=== PATIENT | female | born 1975 ===

== ENCOUNTER 2020-05-01 07:44 | Outpatient (REF) | payer OTHER, SELFPAY ==
[2020-05-01 09:07] LABS: Alanine Aminotransferase 29 U/L (0-31); Albumin Level 4.4 g/dL (3.5-5.0); Alkaline Phosphatase 79 U/L (39-117); Anion Gap 12 (12-20); Aspartate Amino Transferase 24 U/L (5-31); Bilirubin Total 0.5 mg/dL (0.0-1.0); Blood Urea Nitrogen 7 mg/dL (9-16); Calcium 9.2 mg/dL (8.4-10.2); Carbon Dioxide 26 mmol/L (22-29); Chloride 106 mmol/L (96-108); Cholesterol 170 mg/dL; Estimated Glomerular Filt Rate > 60; Glucose Fasting 103 mg/dL (60-99); HDL Cholesterol 41 mg/dL; LDL Cholesterol Calculated 94 mg/dl; Potassium 4.1 mmol/L (3.3-5.1); Sodium 140 mmol/L (135-145); Total Protein 7.9 g/dL (6.5-8.0); Triglycerides 177 mg/dL
[2020-05-07 14:27] LABS: Vitamin D 25-OH, D2 <4 ng/mL; Vitamin D 25-OH, D3 7 ng/mL; Vitamin D 25-OH, Total 7 ng/mL (30-100)
== END 2020-05-01 07:45 | disposition home or self-care (01) ==
LOC: HO.LAB 07:44
PROVIDERS: PCP Internal Medicine; Visit Provider Internal Medicine
DX: E78.2 Mixed hyperlipidemia (principal); E55.9 Vitamin D deficiency, unspecified
CPT/HCPCS: 36415; 80053; 80061; 82306

== ENCOUNTER 2020-05-08 14:53 | Outpatient (REF) | payer OTHER, SELFPAY ==
[2020-05-09 09:47] LABS: C. trachomatis RNA TMA NOT DETECTED (NOT DETECTED); N. gonorrhoeae RNA TMA NOT DETECTED (NOT DETECTED)
[2020-05-09 12:03] LABS: BV Int Neg Control Negative (Negative); BV Int Pos Control Positive (Positive)
[2020-05-13 04:48] LABS: HPV mRNA E6/E7 rflx Not Detected (Not Detected)
== END 2020-05-08 14:54 | disposition home or self-care (01) ==
LOC: HO.LAB 14:53
PROVIDERS: PCP Internal Medicine; Visit Provider Advanced Practice Midwife
DX: Z01.419 Encounter for gynecological examination (general) (routine) without abnormal findings (principal); Z88.8 Allergy status to other drugs, medicaments and biological substances; N94.6 Dysmenorrhea, unspecified; N94.10 Unspecified dyspareunia; B37.3 Candidiasis of vulva and vagina; Z98.891 History of uterine scar from previous surgery
CPT/HCPCS: 36415; 87480; 87491; 87510; 87591; 87624; 87660; 88142; 99202

== ENCOUNTER → 2020-05-15 10:21 | Outpatient (BNVA) | payer OTHER, SELFPAY | PROVIDERS: PCP Internal Medicine; Visit Provider Advanced Practice Midwife ==

== ENCOUNTER 2021-02-03 10:46 | Outpatient (REF) | payer OTHER, MEDICAID, SELFPAY ==
--- NOTE | ~2021-02-03 | US_ITS ---
EXAMINATION: MM DIAGNOSTIC DIGITAL BREAST TOMOSYNTHESIS, BILATERAL US BREAST TARGETED, BILATERAL CLINICAL INFORMATION: Palpable abnormality right breast by patient. Palpable abnormality left breast by physician. The lifetime risk of breast cancer based on the Christina Score Model is 10.6%. COMPARISON: Mammography: None at this time. Addendum to report will be made if previous studies from [facility] can be obtained. TECHNIQUE: Digital breast tomosynthesis is performed in both the craniocaudal and mediolateral oblique views along with computer-aided detection (CAD). Synthesized 2-D images are generated from the tomosynthesis. Right breast exaggerated craniocaudal view performed. Bilateral targeted breast ultrasound. FINDINGS: The breasts are extremely dense, which lowers the sensitivity of mammography (ACR BI-RADS breast composition Category d). Right Breast. Approximately 3 cm from nipple, there is a well-circumscribed oval density measuring 2.1 x 1.4 cm in size. In the region of palpable abnormality approximately 6 cm from the nipple, medial aspect of the right breast, there is a 1.7 x 1.3 cm well-circumscribed density. Left Breast: There is a well-circumscribed oval density measuring approximately 2.3 x 1.2 cm in size about the lateral aspect of the left breast approximately 5 cm from the nipple. RIGHT BREAST ULTRASOUND: At approximately the 12 o'clock position, 2 cm from nipple, there is a 1.8 x 1.9 x 0.6 cm simple cyst. There are a few other simple-appearing cysts in this location with an adjacent one measuring approximately 7 x 4 mm in size. At the 5 o'clock position, approximately 3 cm from the nipple, where the palpable abnormality is, there is a hypoechoic circumscribed density measuring approximately 1.5 x 1.3 x 0.8 cm in size with minimal increased distal sound enhancement and no distal sound shadowing. There is a lobulation present with no internal vascularity seen. This likely represents a fibroadenoma. Ultrasound-guided core biopsy is recommended. LEFT BREAST ULTRASOUND: Within the upper outer aspect of the left breast, there are numerous cysts present, the largest of which measures approximately 2 cm in longest dimension. At approximately the 2 o'clock position, 3 cm from the nipple, there is a well-circumscribed heterogeneous structure which appears to have a soft tissue fluid level within it and may represent an acorn cyst. There is no internal vascularity, and there is increased through sound transmission present. No distal sound shadowing is seen. The lesion is wider than it is tall. A 6-month follow-up ultrasound is recommended. Results are discussed with the patient at time of visit. Shelia at the referring provider's office was given the above recommendation. US/US breast RT limited IMPRESSION: Right breast hypoechoic and slightly lobulated density in region of palpable abnormality for which ultrasound-guided core biopsy is recommended. Complex probable acorn cyst left breast for which a 6-month follow-up study is recommended. ASSESSMENT: BI-RADS 4: Suspicious. RECOMMENDATION: Ultrasound-guided core biopsy of right breast lesion approximately 5 o'clock position, 3 cm from the nipple. 6-month follow-up left breast complex cyst.
== END 2021-02-03 10:47 | disposition home or self-care (01) ==
LOC: HO.MAMMO 10:46
PROVIDERS: PCP Internal Medicine; Visit Provider Nurse Practitioner Family
DX: N63.20 Unspecified lump in the left breast, unspecified quadrant (principal); N63.10 Unspecified lump in the right breast, unspecified quadrant
CPT/HCPCS: 76642; 77062; 77066

== ENCOUNTER 2021-02-09 09:09 | Outpatient (REF) | payer OTHER, MEDICAID, SELFPAY ==
--- NOTE | ~2021-02-09 | MM_ITS ---
EXAMINATION: ULTRASOUND GUIDED CORE BIOPSY BREAST, RIGHT POST PROCEDURE DIGITAL BREAST TOMOSYNTHESIS, RIGHT CLINICAL INFORMATION: Solid mass posterior 5:00 position, likely fibroadenoma. COMPARISON: Mammography and right breast ultrasound 02/03/2021. FINDINGS: Proper informed consent is obtained from the patient after discussion of the procedure, potential risks and complications, and alternatives. Patient was given an opportunity for questions. The patient appeared to understand. The patient consented to the procedure and signed the consent form. Consent and procedure assisted by hospital provided city dispatcher. GUIDANCE: Ultrasound-guided; aseptic technique. LESION: Macrolobulated circumscribed solid mass 5:00 position measuring under 2 cm. APPROACH: Medial lateral. ANESTHESIA: 10 mL carbonated 1% lidocaine. DERMATOTOMY: Single skin newton dermatotomy performed. NEEDLE: 14-gauge Achieve core biopsy device with 13.5-gauge co-axial guide needle. CORES: 5. CLIP: HydroMARK; shape: open coil. POST PROCEDURE DIGITAL BREAST TOMOSYNTHESIS, RIGHT: The post biopsy mammogram is performed in separate room using separate digital breast tomosynthesis equipment from the biopsy procedure. CC and MLO views are obtained. Synthesized 2-D images are generated from the tomography. The breasts are heterogeneously dense, which may obscure small masses (breast composition category: c). The clip marker is in position and corresponds to the mass noted on recent imaging. No gross hematoma. The patient tolerated the procedure well. No immediate complications. Home instructions reviewed with the patient. Final pathology results are pending. MM/MM tomosynthesis diagnostic RT IMPRESSION: 1. Status post ultrasound-guided core biopsy right breast. 2. Clip placed: HydroMARK; shape: open coil. 3. Pathology pending. An addendum report will be issued.
[2021-02-09] MEDS: Lidocaine HCl 1 % 20 ML VIAL 9 ML SUBCUT (10:52)
[2021-02-09] MEDS: Sodium Bicarbonate 8.4% 50 MEQ/50 ML VIAL SUBCUT (10:54)
== END 2021-02-09 09:10 | disposition home or self-care (01) ==
LOC: HO.MAMMO 09:09
PROVIDERS: Visit Provider Surgery
DX: R92.8 Other abnormal and inconclusive findings on diagnostic imaging of breast (principal); N63.14 Unspecified lump in the right breast, lower inner quadrant
CPT/HCPCS: 19083; 77061; 77065; 88305; 99202; A4648

== ENCOUNTER → 2021-02-12 11:34 | Outpatient (BNVA) | payer OTHER, SELFPAY | PROVIDERS: PCP Internal Medicine; Referring Provider Internal Medicine; Visit Provider Surgery | DX: D24.1 Benign neoplasm of right breast (principal) | CPT/HCPCS: 99212 ==

== ENCOUNTER 2021-05-27 08:05 | Outpatient (REF) | payer OTHER, SELFPAY ==
[2021-05-27 21:42] LABS: CT PCR NOT DETECTED (Not Detect.); NG PCR NOT DETECTED (Not Detect.)
[2021-05-28 09:00] LABS: BV Int Neg Control Negative (Negative); BV Int Pos Control Positive (Positive)
== END 2021-05-27 08:06 | disposition home or self-care (01) ==
LOC: HO.LAB 08:05
PROVIDERS: PCP Internal Medicine; Visit Provider Advanced Practice Midwife
DX: Z01.419 Encounter for gynecological examination (general) (routine) without abnormal findings (principal); N93.9 Abnormal uterine and vaginal bleeding, unspecified; Z20.2 Contact with and (suspected) exposure to infections with a predominantly sexual mode of transmission
CPT/HCPCS: 87480; 87491; 87510; 87591; 87660

== ENCOUNTER 2021-05-29 09:21 | Outpatient (REF) | payer OTHER, SELFPAY ==
[2021-05-29 09:45] LABS: MANUAL DIFF FLAG NO
[2021-05-29 10:27] LABS: Basophils Percent Auto 0.5 % (0-2); Eosinophils Absolute Auto 0.1 X10*3/uL (0.0-0.4); Eosinophils Percent Auto 1.9 % (0-4); Hematocrit 32.5 % (37.0-47.0); Hemoglobin 9.8 g/dl (12.0-16.0); Imm Gran Abs Auto 0.02 X10*3/uL (0.00-0.03); Imm Gran Pct Auto 0.3 % (0.0-0.4); Lymphocytes Absolute Auto 1.6 X10*3/uL (1.2-4.9); Lymphocytes Percent Auto 25.9 % (20-40); Mean Corpuscular HGB Conc 30.2 g/dl (31.0-35.0); Mean Corpuscular Hemoglobin 22.4 pg (27.0-33.0); Mean Corpuscular Volume 74.2 fL (80.0-98.0); Mean Platelet Volume 9.8 fL (9.4-12.3); Monocytes Absolute Auto 0.3 X10*3/uL (0.1-1.2); Monocytes Percent Auto 4.8 % (2-11); Neutrophils Absolute Auto 4.1 x10*3/uL (2.0-8.3); Neutrophils Percent Auto 66.6 % (45-73); Platelet Count 389 X10*3/uL (160-400); Red Blood Count 4.38 X10*6/uL (4.20-5.50); Red Cell Distribution Width 16.1 % (11.0-16.0); White Blood Count 6.2 X10*3/uL (4.8-10.8)
[2021-05-29 11:00] LABS: Thyroid Stimulating Hormone 0.73 uIU/mL (0.32-4.0)
== END 2021-05-29 09:22 | disposition home or self-care (01) ==
LOC: HO.LAB 09:21
PROVIDERS: PCP Internal Medicine; Visit Provider Advanced Practice Midwife
DX: N93.9 Abnormal uterine and vaginal bleeding, unspecified (principal); N92.1 Excessive and frequent menstruation with irregular cycle
CPT/HCPCS: 36415; 84443; 85025

== ENCOUNTER 2021-06-17 15:51 | Outpatient (REF) | payer OTHER, SELFPAY ==
--- NOTE | ~2021-06-17 | US_ITS ---
EXAMINATION: US PELVIS CLINICAL INFORMATION: Abnormal uterine and vaginal bleeding COMPARISON: None TECHNIQUE: Ultrasound of the pelvis is performed using both transabdominal and transvaginal transducers along with Doppler. Transvaginal imaging is performed due to inadequate visualization transabdominally. FINDINGS: Uterus: The uterus is anteverted and measures 12.8 x 5.8 x 6.9 cm. There are nabothian cysts within the cervix. The double wall endometrial thickness is 22 mm. The uterus is smooth in contour and has normal myometrial echogenicity. No visible fibroid. Adnexa: Both ovaries are visualized. There is normal color flow to the adnexa. There is no ovarian torsion. There is no pelvic ascites or fluid collection. Right ovary measures 2.8 x 1.8 x 1.9 cm. There is a 1.8 cm dominant follicle in the right ovary. Left ovary measures 1.9 x 2.2 x 1.8 cm. There is an anechoic tubular structure in left adnexa that measures 3.3 x 1.2 x 3.3 cm, that may represent a hydrosalpinx. US/US pelvic and transvaginal IMPRESSION: Anechoic tubular structure in the left adnexa that may represent a hydrosalpinx. 1.8 cm dominant follicle in the right ovary. Otherwise normal pelvic ultrasound.
== END 2021-06-17 15:52 | disposition home or self-care (01) ==
LOC: HO.US 15:51
PROVIDERS: Visit Provider Advanced Practice Midwife
DX: N93.9 Abnormal uterine and vaginal bleeding, unspecified (principal)
CPT/HCPCS: 76830; 76856

== ENCOUNTER 2021-06-24 07:57 | Outpatient (REF) | payer OTHER, SELFPAY ==
[2021-06-25 09:22] LABS: BV Int Neg Control Negative (Negative); BV Int Pos Control Positive (Positive)
== END 2021-06-24 07:58 | disposition home or self-care (01) ==
LOC: HO.LAB 07:57
PROVIDERS: PCP Internal Medicine; Visit Provider Advanced Practice Midwife
DX: R10.2 Pelvic and perineal pain (principal); N93.9 Abnormal uterine and vaginal bleeding, unspecified; R30.0 Dysuria; Z32.02 Encounter for pregnancy test, result negative; Z71.2 Person consulting for explanation of examination or test findings
CPT/HCPCS: 58100; 81003; 81025; 87480; 87510; 87660; 88305

== ENCOUNTER → 2021-07-08 08:01 | Outpatient (BNVA) | payer OTHER, SELFPAY | PROVIDERS: PCP Internal Medicine; Visit Provider Advanced Practice Midwife | DX: Z71.2 Person consulting for explanation of examination or test findings (principal); Z30.09 Encounter for other general counseling and advice on contraception; N94.6 Dysmenorrhea, unspecified; N76.0 Acute vaginitis; B96.89 Other specified bacterial agents as the cause of diseases classified elsewhere | CPT/HCPCS: 99212 ==

== ENCOUNTER 2021-08-12 15:28 | Outpatient (REF) | payer OTHER, SELFPAY ==
--- NOTE | ~2021-08-12 | US_ITS ---
EXAMINATION: US DIAGNOSTIC ULTRASOUND BREAST, LEFT CLINICAL INFORMATION: Six-month follow-up left breast acorn cyst. COMPARISON: 02/09/2021, 02/03/2021, and studies dating back to 12/27/2017. TECHNIQUE: Ultrasound of the breast is performed with real-time hong scale imaging and color Doppler. FINDINGS: About the upper outer quadrant of the left breast there are innumerable cysts present the majority of which are simple with some mildly complex cysts being seen. No definite solid lesion with internal vascularity is appreciated. 6 month bilateral mammography is suggested as well as targeted left breast ultrasound to ensure stability. Results are discussed with the patient at time of visit. US/US breast LT limited IMPRESSION: Numerous left breast cysts some of which are complex with no definite suspicious lesion being identified. Recommend 6 month follow-up mammography and ultrasound. ASSESSMENT: BI-RADS 3: Probably Benign RECOMMENDATION: Diagnostic mammography in 6 months. This patient's information was entered into a reminder system with a target due date for their next mammogram.
== END 2021-08-12 15:29 | disposition home or self-care (01) ==
LOC: HO.MAMMO 15:28
PROVIDERS: Visit Provider Internal Medicine
DX: N63.21 Unspecified lump in the left breast, upper outer quadrant (principal)
CPT/HCPCS: 76642

== ENCOUNTER 2021-12-04 07:53 | Outpatient (REF) | payer OTHER, SELFPAY ==
[2021-12-04 08:06] LABS: MANUAL DIFF FLAG NO
[2021-12-04 09:23] LABS: Basophils Percent Auto 0.6 % (0-2); Eosinophils Absolute Auto 0.2 X10*3/uL (0.0-0.4); Eosinophils Percent Auto 2.7 % (0-4); Hematocrit 40.9 % (37.0-47.0); Hemoglobin 13.2 g/dl (12.0-16.0); Imm Gran Abs Auto 0.04 X10*3/uL (0.00-0.03); Imm Gran Pct Auto 0.6 % (0.0-0.4); Lymphocytes Absolute Auto 2.3 X10*3/uL (1.2-4.9); Lymphocytes Percent Auto 34.4 % (20-40); Mean Corpuscular HGB Conc 32.3 g/dl (31.0-35.0); Mean Corpuscular Hemoglobin 27.4 pg (27.0-33.0); Mean Platelet Volume 9.7 fL (9.4-12.3); Monocytes Absolute Auto 0.4 X10*3/uL (0.1-1.2); Monocytes Percent Auto 5.8 % (2-11); Neutrophils Absolute Auto 3.7 x10*3/uL (2.0-8.3); Neutrophils Percent Auto 55.9 % (45-73); Platelet Count 313 X10*3/uL (160-400); Red Blood Count 4.81 X10*6/uL (4.20-5.50); Red Cell Distribution Width 13.4 % (11.0-16.0); White Blood Count 6.7 X10*3/uL (4.8-10.8)
[2021-12-04 10:08] LABS: Alanine Aminotransferase 28 U/L (0-31); Albumin Level 4.5 g/dL (3.5-5.0); Alkaline Phosphatase 62 U/L (39-117); Anion Gap 14 (12-20); Aspartate Amino Transferase 22 U/L (5-31); Bilirubin Total 0.3 mg/dL (0.0-1.0); Blood Urea Nitrogen 8 mg/dL (9-16); Calcium 9.8 mg/dL (8.4-10.2); Carbon Dioxide 23 mmol/L (22-29); Chloride 105 mmol/L (96-108); Cholesterol 211 mg/dL; Estimated Glomerular Filt Rate > 60; Glucose Fasting 99 mg/dL (60-99); HDL Cholesterol 43 mg/dL; Iron 39 mcg/dL (30-160); LDL Cholesterol Calculated 112 mg/dl; Percent Iron Saturation 9 % (15-50); Potassium 4.3 mmol/L (3.3-5.1); Sodium 138 mmol/L (135-145); Total Iron Binding Capacity 412 mcg/dL (228-428); Triglycerides 282 mg/dL; Unsaturated Iron Binding 373 ug/dL
[2021-12-04 10:47] LABS: Vitamin D 25-OH Total 11.7 ng/mL (>30)
== END 2021-12-04 07:54 | disposition home or self-care (01) ==
LOC: HO.LAB 07:53
PROVIDERS: PCP Internal Medicine; Visit Provider Internal Medicine
DX: Z00.00 Encounter for general adult medical examination without abnormal findings (principal); E55.9 Vitamin D deficiency, unspecified; E78.5 Hyperlipidemia, unspecified; D64.9 Anemia, unspecified
CPT/HCPCS: 36415; 80053; 80061; 82306; 83540; 85025

== ENCOUNTER 2022-02-11 14:23 | Outpatient (REF) | payer OTHER, SELFPAY ==
--- NOTE | ~2022-02-11 | MM_ITS ---
EXAMINATION: MM DIAGNOSTIC DIGITAL BREAST TOMOSYNTHESIS, BILATERAL CLINICAL INFORMATION: Left breast numerous cysts. 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 COMPARISON: Mammography: 12/27/2017 and studies dating up to ultrasound study of 08/12/2021. TECHNIQUE: Digital breast tomosynthesis is performed in both the craniocaudal and mediolateral oblique views along with computer-aided detection (CAD). Synthesized 2D images are generated from the tomosynthesis. FINDINGS: The breasts are extremely dense, which lowers the sensitivity of mammography (ACR BI-RADS breast composition Category d). There is a stable parenchymal pattern with numerous circumscribed densities bilaterally as well as the fibroadenoma with marking clip within it. Following review of the ultrasound study of 08/12/2021. Today's ultrasound was canceled with the numerous left breast cyst seen previously to appear benign. Results are provided to the patient at time of visit by the technologist. MM/MM tomosynthesis diagnostic BI IMPRESSION: There are no significant changes from prior study. ASSESSMENT: BI-RADS 2: Benign RECOMMENDATION: Routine annual mammography screening. This patient's information was entered into a reminder system with a target due date for their next mammogram.
== END 2022-02-11 14:24 | disposition home or self-care (01) ==
LOC: HO.MAMMO 14:23
PROVIDERS: PCP Internal Medicine; Visit Provider Internal Medicine
DX: N60.02 Solitary cyst of left breast (principal); N64.89 Other specified disorders of breast
CPT/HCPCS: 77062; 77066

== ENCOUNTER 2022-08-04 14:25 | Outpatient (REF) | payer OTHER, SELFPAY | END 2022-08-04 14:26 | disposition home or self-care (01) | LOC: HO.LNP 14:25 | PROVIDERS: PCP Internal Medicine; Visit Provider Advanced Practice Midwife | DX: Z13.89 Encounter for screening for other disorder (principal) ==

== ENCOUNTER 2022-08-04 15:00 | Outpatient (REF) | payer OTHER, SELFPAY ==
[2022-08-04 15:44] LABS: Hematocrit 32.2 % (37.0-47.0); Hemoglobin 10.2 g/dl (12.0-16.0); Mean Corpuscular HGB Conc 31.7 g/dl (31.0-35.0); Mean Corpuscular Hemoglobin 23.8 pg (27.0-33.0); Mean Corpuscular Volume 75.2 fL (80.0-98.0); Mean Platelet Volume 9.1 fL (9.4-12.3); Platelet Count 333 X10*3/uL (160-400); Red Blood Count 4.28 X10*6/uL (4.20-5.50); Red Cell Distribution Width 14.6 % (11.0-16.0); White Blood Count 7.9 X10*3/uL (4.8-10.8)
[2022-08-04 16:28] LABS: Thyroid Stimulating Hormone 0.78 uIU/mL (0.32-4.0)
[2022-08-04 18:40] LABS: CT PCR NOT DETECTED (Not Detect.); NG PCR NOT DETECTED (Not Detect.)
[2022-08-05 01:51] LABS: Syphilis Screen Nonreactive (Nonreactive)
[2022-08-05 02:57] LABS: HIV AB/AG Nonreactive (Nonreactive); HIV Num 1 0.07 S/CO (0.00-0.99); Hepatitis B Core Antibody Nonreactive (Nonreactive); ~HepC Num1 0.15 S/CO (0.00-0.79); ~Hepatitis C Antibody Nonreactive (Nonreactive)
[2022-08-05 09:21] LABS: BV Int Neg Control Negative (Negative); BV Int Pos Control Positive (Positive)
== END 2022-08-04 15:01 | disposition home or self-care (01) ==
LOC: HO.LAB 15:00
PROVIDERS: PCP Internal Medicine; Visit Provider Advanced Practice Midwife
DX: Z11.4 Encounter for screening for human immunodeficiency virus [HIV] (principal); Z20.2 Contact with and (suspected) exposure to infections with a predominantly sexual mode of transmission; N92.1 Excessive and frequent menstruation with irregular cycle; N94.6 Dysmenorrhea, unspecified
CPT/HCPCS: 0353U; 84443; 85027; 86704; 86780; 86803; 87389; 87480; 87510; 87660

== ENCOUNTER 2022-10-10 11:35 | Outpatient (REF) | payer OTHER, SELFPAY ==
--- NOTE | ~2022-10-10 | XR_ITS ---
EXAMINATION: XR FEMUR, LEFT CLINICAL INFORMATION: Pain. COMPARISON: None available. TECHNIQUE: AP and lateral views of the left femur were obtained. FINDINGS: The bones and soft tissues are normal. No fracture. No osseous lesions. XR/XR femur LT 2V IMPRESSION: Normal left femur.
--- NOTE | ~2022-10-10 | XR_ITS ---
EXAMINATION: XR KNEE, RIGHT CLINICAL INFORMATION: Pain. COMPARISON: None available. TECHNIQUE: AP and lateral views of the right knee. FINDINGS: No fracture or joint effusion. Alignment is anatomic. Joint spaces are maintained. No abnormal soft tissue calcification. XR/XR knee RT 2V IMPRESSION: Normal right knee.
--- NOTE | ~2022-10-10 | XR_ITS ---
EXAMINATION: XR FEMUR, RIGHT CLINICAL INFORMATION: Pain. COMPARISON: None available. TECHNIQUE: AP and lateral views of the right femur were obtained. FINDINGS: The bones and soft tissues are normal. No fracture. No osseous lesions. XR/XR femur RT 2V IMPRESSION: Normal right femur.
--- NOTE | ~2022-10-10 | XR_ITS ---
EXAMINATION: XR FOREARM, RIGHT CLINICAL INFORMATION: Pain. COMPARISON: None available. TECHNIQUE: AP and lateral views of the right forearm were obtained. FINDINGS: The bones and soft tissues are normal. No fracture. Imaged portions of the elbow and wrist are unremarkable. XR/XR forearm RT 2V IMPRESSION: Normal right forearm.
--- NOTE | ~2022-10-10 | XR_ITS ---
EXAMINATION: XR HUMERUS, LEFT CLINICAL INFORMATION: Pain. COMPARISON: None available. TECHNIQUE: AP and lateral views of the left humerus. FINDINGS: The bones and soft tissues are normal. No fracture. Imaged portions of the shoulder and elbow are unremarkable. XR/XR humerus LT IMPRESSION: Normal left humerus.
--- NOTE | ~2022-10-10 | XR_ITS ---
EXAMINATION: XR HUMERUS, RIGHT CLINICAL INFORMATION: Pain. COMPARISON: None available. TECHNIQUE: AP and lateral views of the right humerus. FINDINGS: The bones and soft tissues are normal. No fracture. Imaged portions of the shoulder and elbow are unremarkable. XR/XR humerus RT IMPRESSION: Normal right humerus.
--- NOTE | ~2022-10-10 | XR_ITS ---
EXAMINATION: XR KNEE, LEFT CLINICAL INFORMATION: Pain. COMPARISON: None available. TECHNIQUE: AP and lateral views of the left knee. FINDINGS: No fracture or joint effusion. Alignment is anatomic. Joint spaces are maintained. No abnormal soft tissue calcification. XR/XR knee LT 2V IMPRESSION: Normal left knee.
--- NOTE | ~2022-10-10 | XR_ITS ---
EXAMINATION: XR FOREARM, LEFT CLINICAL INFORMATION: Pain. COMPARISON: None available. TECHNIQUE: AP and lateral views of the left forearm were obtained. FINDINGS: The bones and soft tissues are normal. No fracture. Imaged portions of the elbow and wrist are unremarkable. XR/XR forearm LT 2V IMPRESSION: Normal left forearm.
== END 2022-10-10 11:36 | disposition home or self-care (01) ==
LOC: HO.XRAY 11:35
PROVIDERS: PCP Internal Medicine; Visit Provider Internal Medicine
DX: M89.8X2 Other specified disorders of bone, upper arm (principal); M79.632 Pain in left forearm; M79.631 Pain in right forearm; M89.8X5 Other specified disorders of bone, thigh; M25.562 Pain in left knee; M25.561 Pain in right knee
CPT/HCPCS: 73060; 73090; 73552; 73560

== ENCOUNTER 2022-11-18 08:12 | Outpatient (REF) | payer OTHER, SELFPAY ==
[2022-11-18 08:36] LABS: MANUAL DIFF FLAG NO
[2022-11-18 09:27] LABS: Basophils Percent Auto 0.4 % (0-2); Eosinophils Absolute Auto 0.1 X10*3/uL (0.0-0.4); Eosinophils Percent Auto 1.8 % (0-4); Hematocrit 36.4 % (37.0-47.0); Hemoglobin 11.4 g/dl (12.0-16.0); Imm Gran Abs Auto 0.04 X10*3/uL (0.00-0.03); Imm Gran Pct Auto 0.5 % (0.0-0.4); Lymphocytes Absolute Auto 2.2 X10*3/uL (1.2-4.9); Lymphocytes Percent Auto 27.6 % (20-40); Mean Corpuscular HGB Conc 31.3 g/dl (31.0-35.0); Mean Corpuscular Hemoglobin 23.4 pg (27.0-33.0); Mean Corpuscular Volume 74.7 fL (80.0-98.0); Mean Platelet Volume 9.5 fL (9.4-12.3); Monocytes Absolute Auto 0.6 X10*3/uL (0.1-1.2); Monocytes Percent Auto 7.8 % (2-11); Neutrophils Percent Auto 61.9 % (45-73); Platelet Count 350 X10*3/uL (160-400); Red Blood Count 4.87 X10*6/uL (4.20-5.50); Red Cell Distribution Width 15.8 % (11.0-16.0)
[2022-11-18 10:12] LABS: Erythrocyte Sedimentation Rate 17 MM/HR (0-20)
[2022-11-18 10:28] LABS: Alanine Aminotransferase 28 U/L (0-31); Albumin Level 4.5 g/dL (3.5-5.0); Alkaline Phosphatase 69 U/L (39-117); Anion Gap 13 (12-20); Aspartate Amino Transferase 23 U/L (5-31); Bilirubin Total 0.4 mg/dL (0.0-1.0); Blood Urea Nitrogen 9 mg/dL (9-16); Calcium 9.8 mg/dL (8.4-10.2); Carbon Dioxide 24 mmol/L (22-29); Chloride 106 mmol/L (96-108); Cholesterol 222 mg/dL (<200); Estimated Glomerular Filt Rate > 60; Glucose Fasting 96 mg/dL (60-99); HDL Cholesterol 50 mg/dL (>40); Iron 31 mcg/dL (30-160); LDL Cholesterol Calculated 119 mg/dL (<100); Percent Iron Saturation 8 % (15-50); Potassium 4.1 mmol/L (3.3-5.1); Sodium 139 mmol/L (135-145); Total Iron Binding Capacity 410 mcg/dL (228-428); Total Protein 8.3 g/dL (6.5-8.0); Triglycerides 267 mg/dL (<150); Unsaturated Iron Binding 379 ug/dL
[2022-11-18 10:38] LABS: Rheumatoid Factor < 13.0 IU/mL (<15.0)
[2022-11-21 07:53] LABS: Cyclic Citrullinated Peptide <16 UNITS
[2022-11-23 12:28] LABS: Anti Nuclear Antibody Screen POSITIVE (NEGATIVE)
== END 2022-11-18 08:13 | disposition home or self-care (01) ==
LOC: HO.LAB 08:12
PROVIDERS: PCP Internal Medicine; Visit Provider Internal Medicine
DX: E78.5 Hyperlipidemia, unspecified (principal); E55.9 Vitamin D deficiency, unspecified; E66.9 Obesity, unspecified; M54.6 Pain in thoracic spine; D64.9 Anemia, unspecified; Z68.31 Body mass index [BMI] 31.0-31.9, adult
CPT/HCPCS: 36415; 80053; 80061; 82306; 83540; 85025; 85652; 86038; 86039; 86200; 86431

== ENCOUNTER 2022-11-28 17:08 | Outpatient (AMB) | payer OTHER, SELFPAY ==
[2022-11-28 17:14] VITALS: BP 118/70; BMI 33.1
--- NOTE | 2022-11-28 17:14 | MHC.PC.OV ---
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 Required: No Accompanied by: Daughter Allergies simvastatin Adverse Reaction (Mild, Verified 11/28/22 17:27) hives/ rash Medication List - Last Reconciled 11/28/22 by Meche Avendaño MD ferrous sulfate 325 mg PO DAILY 90 days Tobacco use date assessed: 03/23/22 Dental Screening Dental Screen Date: 11/28/22 Did you have a dental visit in the last 12 months?: Yes Did you have a dental problem in the last 6 months where you did not have access to dental care?: No Was dental information given to patient?: Patient has dentist HPI HPI Comments History of Present Illness Details This is a 47-year-old female that comes for her physical exam accompanied by daughter. Last Pap smear was 2020. Last mammogram was February 2022. Has never had a colonoscopy and has no family history of colon cancer. Cologuard will be order. Has diffuse joint pain and has a positive MECHE and will be referred to rheumatology. Elevated cholesterol and triglyceride but does not require any statin as per Jermyn risk score. [facility] Medical History Abnormal uterine bleeding (AUB) Blurry vision Cervical cancer screening Encounter for well woman exam Heavy menstrual bleeding Hypovitaminosis D Mixed hyperlipidemia Moderate cramps with menses Vaginal pruritus Surgical History H/O tubal ligation History of tonsillectomy Previous section Family History Father Diabetes Mother No problems noted. Social History Housing: House Alcohol intake: never Patient Tobacco Use Status: Never used Tobacco e-Cigarette/Vaping Use: Never Used Second Hand Smoke Exposure: No service: No Current occupational status: employed Current occupational exposures/hazards: No Gender identity: Female Cognitive needs: No Hearing needs: No Vision needs: No Female Reproductive History Menstrual Age of Menarche: 15 Questionnaire Thrive Questionnaire Date Thrive assessed: 03/23/22 DAVID-7 AMB Questionnaire DAVID-7 Date DAVID - 7 assessed: 03/23/22 Source: Developed by Drs. Gray Willoughby, Olimpia Jarrett, Pancho Matute and colleagues, with an educational aniket from [employer]. Review of Systems Const All systems reviewed & are unremarkable except as noted in HPI and below Eyes Reports no additional complaints, Denies change in vision and Denies other visual disturbances Card Denies chest pain at rest, Denies chest pain with activity, Denies edema, Denies irregular heart rhythm, Denies claudication, Denies dyspnea, Denies dyspnea on exertion, Denies orthopnea, Denies paroxysmal nocturnal dyspnea and Denies slow heart rate Resp Denies cough, Denies dyspnea and Denies dyspnea on exertion GI Denies abdominal pain, Denies change in bowel habits, Denies excessive flatus, Denies nausea and Denies vomiting Denies urinary incontinence, Denies urinary hesitancy and Denies urinary urgency Musc Denies abnormal gait, Denies atrophy, Denies deformity and Denies limited range of motion Skin/Breast Denies bleeding lesions, Denies changing lesions and Denies rash Neuro Denies abnormal gait and Denies lack of coordination Physical exam (Primary Care) Vital Signs: Last Vital Signs BP 118/70 11/28/22 17:14 BMI result Body Mass Index 33.1 Tobacco/Smoking Status: Tobacco use Status Tobacco use date assessed 03/23/22 11/28/22 17:17 Patient Tobacco Use Status Never used Tobacco 11/28/22 17:17 e-Cigarette/Vaping Use Never Used 11/28/22 17:17 Thrive Assessment: Date of Thrive Assessment Date Thrive assessed 03/23/22 11/28/22 17:17 Const Orientation/consciousness: patient oriented x3 HENMT Head: Yes normal to inspection, Yes normocephalic and Yes atraumatic Ears: external ears normal Eyes General: appearance normal, both eyes and all related structures Eyelids: Yes eyelids normal Conjunctivae: conjunctivae normal Neck Neck: Yes normal visual inspection and Yes supple Resp Effort & Inspection: normal respiratory effort Auscultation: clear to auscultation bilaterally Cardio Jugular venous distension: no JVD Rate: regular rate Rhythm: regular rhythm Heart sounds: S1 normal heart sound present and S2 normal heart sound present GI Inspection: Yes normal to inspection Palpation (GI): Soft to palpation and nontender Auscultation: normal bowel sounds Skin General skin exam: no rashes or lesions noted Neuro General: patient oriented x3 and no focal motor deficits Extrem General: Yes full ROM Psych Appearance: grossly normal Assessment and Plan Assessment & Plan (1) Physical exam: Code(s): Z00.00 - Encounter for general adult medical examination without abnormal findings Plan: Repeat in a year Orders: Referrals Rheumatology Referral R76.8 - Other specified abnormal immunological findings in serum Cologuard Test Z12.11 - Encounter for screening for malignant neoplasm of colon, Z12.12 - Encounter for screening for malignant neoplasm of rectum Coding Level of Care Code Est Pt Prev Care 40-64y(00438) Diagnoses Physical exam Z00.00 Time Spent (min) 32
== END 2022-11-28 17:35 | disposition home or self-care (01) ==
LOC: HO.HMGH 17:08
PROVIDERS: PCP Internal Medicine; Visit Provider Internal Medicine
DX: Z00.00 Encounter for general adult medical examination without abnormal findings (principal)
CPT/HCPCS: 99396

== ENCOUNTER 2023-03-02 10:41 | Outpatient (AMB) | payer OTHER, SELFPAY ==
--- NOTE | 2023-03-02 10:47 | MHC.OFFVIS ---
Intake Vital Signs 03/02/23 10:48 Height 5 ft 5 in Weight 197 lb 5.019 oz BMI 32.8 BP 130/62 Blood Pressure Location Rt brachial Position Sitting Pulse 82 Pulse Source Pulse Oximeter Temp 97.6 F Temp Source Skin Pulse Oximetry (%) 98 Oxygen Delivery Method Room Air Intake Visit Reasons: Abnormal lab Intake Note: New pt presents today for consult. 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 c/o low back pain, right elbow pain, aliyah knee pain. All worsening since approx 6 months. District Home Economics Agent Required: Yes District Home Economics Agent Language: Dairy Powder Mixer Operator Name: Vandana [id number] Information Interpreted: clinical only Accompanied by: Daughter Allergies simvastatin Adverse Reaction (Mild, Verified 03/02/23 10:53) hives/ rash Medication List - Last Reconciled 03/02/23 by Andrés Gloria MD ferrous sulfate 325 mg PO DAILY 90 days HPI HPI Comments History of Present Illness Details This is a 47-year-old female who presents for evaluation of polyarthralgia and positive NALLELY. Patient states that for the last 6 months she has been having lower back pain. Right elbow pain and bilateral knee pain especially with going up and down the stairs. She does take an [id number] Aleve mixed with Tylenol once or twice a week which provides some relief for her back pain. 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 She denies any rashes. Denies any fevers or weight loss. Denies any history of DVT/PE. She had 2 pregnancies and 2 children. No abortions or miscarriages. Denies any swollen joints. [facility] Medical History Moderate cramps with menses Heavy menstrual bleeding Encounter for well woman exam Abnormal uterine bleeding (AUB) Hypovitaminosis D Blurry vision Cervical cancer screening Vaginal pruritus Mixed hyperlipidemia Surgical History H/O tubal ligation History of tonsillectomy Previous section Family History Father Diabetes Mother Arthritis Maternal Grandmother Arthritis Social History Housing: House Alcohol intake: never Patient Tobacco Use Status: Never used Tobacco e-Cigarette/Vaping Use: Never Used Second Hand Smoke Exposure: No service: No Current occupational status: employed 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 Current occupational exposures/hazards: No Gender identity: Female Cognitive needs: No Hearing needs: No Vision needs: No Female Reproductive History Menstrual Age of Menarche: 15 Total pregnancies: 2 Review of Systems Const Denies fever(s) and Reports weight gain Musc Reports back pain and Reports arthralgias Physical Exam Vital Signs: Last Vital Signs Temp 97.6 F 03/02/23 10:48 Pulse 82 03/02/23 10:48 BP 130/62 03/02/23 10:48 Pulse Ox 98 03/02/23 10:48 Oxygen Delivery Method Room Air 03/02/23 10:48 BMI result Body Mass Index 32.8 Const General: cooperative, healthy appearing and comfortable Nutritional Appearance: obese Orientation/consciousness: patient oriented x3 Limitations: no limitations HEENT Head: Yes normocephalic and Yes atraumatic Mouth: moist mucous membranes Resp Effort & Inspection: normal respiratory effort and able to speak in complete sentences Auscultation: clear to auscultation bilaterally Cardio Rate: regular rate Rhythm: regular rhythm GI Inspection: No distended Palpation (GI): Soft to palpation and nontender Skin General skin exam: no rashes or lesions noted Neuro General: patient oriented x3 Extrem Other: No active synovitis Positive resisted wrist extension test and equivocal resisted wrist flexion test on the right Range of motion of hand, wrists, shoulders. Normal nailfold capillaroscopy Bilateral knee crepitus Assessment & Plan Assessment & Plan (1) Right tennis elbow: Code(s): M77.11 - Lateral epicondylitis, right elbow Plan: Referred to OT (2) Positive NALLELY (antinuclear antibody): Code(s): R76.8 - Other specified abnormal immunological findings in serum Plan: This is a 47-year-old female who presents for evaluation of a positive NALLELY. I do not see any signs of an autoimmune rheumatic disease. There are no rashes, fevers, swollen joints, history of DVT/PE, recurrent miscarriages. No known family history of an autoimmune rheumatic disease. Her positive NALLELY is of unclear significance Her pains are likely degenerative and mechanical in nature Orders: Orders OT Evaluation and Treatment Today M77.01 - Medial epicondylitis, right elbow, M77.11 - Lateral epicondylitis, right elbow Coding Level of Care Code New Pt Level 4 (00703) Diagnoses Right tennis elbow M77.11 Positive NALLELY (antinuclear antibody) R76.8
[2023-03-02 10:48] VITALS: BP 130/62; PULSE 82; TEMP 36.4; O2SAT 98; BMI 32.8
== END 2023-03-02 11:25 | disposition home or self-care (01) ==
PROVIDERS: PCP Internal Medicine; Visit Provider Student in an Organized Health Care Education/Training Program
DX: M77.11 Lateral epicondylitis, right elbow (principal); R76.8 Other specified abnormal immunological findings in serum
CPT/HCPCS: 99204

== ENCOUNTER → 2023-03-02 10:41 | Outpatient (BNVA) | payer OTHER, SELFPAY | PROVIDERS: PCP Internal Medicine; Visit Provider Student in an Organized Health Care Education/Training Program | DX: M77.11 Lateral epicondylitis, right elbow (principal); R76.8 Other specified abnormal immunological findings in serum | CPT/HCPCS: 99202 ==

== ENCOUNTER 2023-03-13 14:34 | Outpatient (REF) | payer OTHER, SELFPAY ==
--- NOTE | ~2023-03-13 | MM_ITS ---
EXAMINATION: MM SCREENING DIGITAL BREAST TOMOSYNTHESIS, BILATERAL CLINICAL INFORMATION: Screening. Asymptomatic. COMPARISON: Mammography: This study is compared with prior exams dating back to 2018. TECHNIQUE: Digital breast tomosynthesis is performed in both the craniocaudal and mediolateral oblique views along with computer-aided detection (CAD). Synthesized 2D images are generated from the tomosynthesis. FINDINGS: The breasts are heterogeneously dense, which may obscure small masses (ACR BI-RADS breast composition Category c). At the lower inner quadrant of the deep third of the right breast, there is an oval mass containing a single coarse calcification. It most likely represents an involuting fibroadenoma. There are bilateral, well-circumscribed unchanged, benign masses. There are no significant masses, abnormal calcifications, or other abnormalities. MM/MM tomosynthesis screening BI IMPRESSION: No mammographic evidence of malignancy. ASSESSMENT: BI-RADS BI-RADS 2 - Benign Findings RECOMMENDATION: Routine annual mammography screening. 1 year F/U This examination should not preclude the clinical evaluation of a suspicious palpable abnormality. This patient's information was entered into a reminder system with a target due date for their next mammogram.
== END 2023-03-13 14:35 | disposition home or self-care (01) ==
LOC: HO.MAMMO 14:34
PROVIDERS: PCP Internal Medicine; Visit Provider Internal Medicine
DX: Z12.31 Encounter for screening mammogram for malignant neoplasm of breast (principal)
CPT/HCPCS: 77063; 77067

== ENCOUNTER → 2023-03-13 14:45 | Outpatient (BNV) | payer OTHER, SELFPAY | PROVIDERS: PCP Internal Medicine; Visit Provider Radiology Diagnostic Radiology | DX: Z12.31 Encounter for screening mammogram for malignant neoplasm of breast (principal) | CPT/HCPCS: 77063; 77067 ==

== ENCOUNTER 2023-03-29 14:54 | Outpatient (RCR) | payer OTHER, SELFPAY ==
--- NOTE | 2023-03-29 16:25 | MHC.OT.EP ---
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 Pt also with report of back pain and bilateral knee pain. Today pt presents with S+S consistent with a diagnosis of right lateral epicondylitis primarily aggravated with use of her elliptical machine, and lifting groceries and trash bags. Pt will benefit from OT to improve right elbow pain, and functional use of her right dominant hand with moderate to heavy activity at home and work. 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 Thank you once again for your referral.
== END 2023-04-28 13:39 | disposition home or self-care (01) ==
LOC: HO.OT 14:54
PROVIDERS: PCP Internal Medicine; Visit Provider Student in an Organized Health Care Education/Training Program
DX: M77.11 Lateral epicondylitis, right elbow (principal); M77.01 Medial epicondylitis, right elbow
CPT/HCPCS: 97033; 97166

== ENCOUNTER 2023-06-12 15:09 | Outpatient (AMB) | payer OTHER, SELFPAY ==
[2023-06-12 15:23] VITALS: BP 130/72; BMI 33.4
--- NOTE | 2023-06-12 15:23 | MHC.PC.OV ---
Vital Signs 06/12/23 15:23 Height 5 ft 5 in Weight 201 lb BMI 33.4 BP 130/72 Blood Pressure Location Lt brachial Position Sitting Intake Visit Reasons: right buttocks pain radiating down leg for 3 weeks Hospitality Manager Required: No Accompanied by: Self / Same As Patient Allergies simvastatin Adverse Reaction (Mild, Verified 06/12/23 15:31) hives/ rash Medication List - Last Reconciled 06/12/23 by Meche Avendaño MD No Known Home Meds Tobacco use date assessed: 06/12/23 Dental Screening Dental Screen Date: 06/12/23 Did you have a dental visit in the last 12 months?: Yes Did you have a dental problem in the last 6 months where you did not have access to dental care?: No Was dental information given to patient?: Patient has dentist HPI HPI Comments History of Present Illness Details This is a 48-year-old female that comes today complaining of right knee pain that started about a week ago when she did a twisting movement and she also has low back pain radiating to the right buttock that started few days ago. No fever, bowel or bladder incontinence. Able to walk with no assistive device. Has full active range of motion. [facility] Medical History (Updated 06/12/23 @ 15:37 by Meche Avendaño MD) Moderate cramps with menses Heavy menstrual bleeding Encounter for well woman exam Abnormal uterine bleeding (AUB) Hypovitaminosis D Blurry vision Cervical cancer screening Vaginal pruritus Mixed hyperlipidemia Surgical History H/O tubal ligation History of tonsillectomy Previous section Family History Father Diabetes Mother Arthritis Maternal Grandmother Arthritis Social History Housing: House Alcohol intake: never Patient Tobacco Use Status: Never used Tobacco e-Cigarette/Vaping Use: Never Used Second Hand Smoke Exposure: No service: No Current occupational status: employed 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 1. Little interest or pleasure in doing things: not at all 2. Feeling down, depressed, or hopeless: not at all 3. Trouble falling or staying asleep, or sleeping too much: not at all 4. Feeling tired or having little energy: not at all 5. Poor appetite or overeating: not at all 6. Feeling bad about yourself - or that you are a failure or have let yourself or your family down: not at all 7. Trouble concentrating on things, such as reading the newspaper or watching television: not at all 8. Moving or speaking so slowly that other people could have noticed. Or the opposite - being so fidgety or restless that you have been moving around a lot more than usual: not at all 9. Thoughts that you would be better off or of hurting yourself in some way: not at all Total score: 0 Source: Developed by Drs. Gray Willoughby, Olimpia Jarrett, Pancho Matute and colleagues, with an educational aniket from [employer]. Thrive Questionnaire Date Thrive assessed: 06/12/23 I am a: Patient What is your living situation today?: I have a steady place to live Within the past 12 months, did the food you bought not last and you didn't have the money to get more?: Never true Within the past 12 months, did you worry whether your food would run out before you got money to buy more?: Never true Do you have trouble paying for medicines?: No Do you have trouble getting transportation to medical appointments?: No Do you have trouble paying your heating and electricity bill?: No Do you have trouble taking care of your child, family member or friend?: No Do you have trouble with day-to-day activities such as bathing, preparing meals, shopping, managing finances, etc.?: No Are you currently unemployed and looking for a job?: No Are you interested in more education?: No Please select the resources that you would like help with: None Currently or been in a relationship where the following occur: no concerns reported THRIVE Score: 0 AUDIT C Alcohol Use Questionnaire (AUDIT-C) 1. How often do you have a drink containing alcohol?: Never Total Score: 0 DAVID-7 AMB Questionnaire DAVID-7 Date DAVID - 7 assessed: 06/12/23 Feeling nervous, anxious, or on edge: 0 = Not at all Not being able to stop or control worryin = Not at all Worrying too much about different things: 0 = Not at all Trouble relaxin = Not at all Being so restless that it is hard to sit still: 0 = Not at all Becoming easily annoyed or irritable: 0 = Not at all Feeling afraid as if something awful might happen: 0 = Not at all Total DAVID-7 score (0-4 normal; 5-9 mild; 10-14 moderate; 15-21 severe): 0 Source: Developed by Drs. Gray Willoughby, Olimpia Jarrett, Pancho Matute and colleagues, with an educational aniket from [employer]. Review of Systems Const All systems reviewed & are unremarkable except as noted in HPI and below Eyes Reports no additional complaints, Denies change in vision and Denies other visual disturbances Card Denies chest pain at rest, Denies chest pain with activity, Denies edema, Denies irregular heart rhythm, Denies claudication, Denies dyspnea, Denies dyspnea on exertion, Denies orthopnea, Denies paroxysmal nocturnal dyspnea and Denies slow heart rate Resp Denies cough, Denies dyspnea and Denies dyspnea on exertion Physical exam (Primary Care) Vital Signs: Last Vital Signs BP 130/72 06/12/23 15:23 BMI result Body Mass Index 33.4 Tobacco/Smoking Status: Tobacco use Status Tobacco use date assessed 06/12/23 06/12/23 15:26 Patient Tobacco Use Status Never used Tobacco 06/12/23 15:26 e-Cigarette/Vaping Use Never Used 06/12/23 15:26 PHQ-9: PHQ-9 Score PHQ-9: Total score 0 06/12/23 15:33 Thrive Assessment: Date of Thrive Assessment Date Thrive assessed 06/12/23 06/12/23 15:26 Currently or been in a relationship where the following occur: no concerns reported Resp Effort & Inspection: normal respiratory effort Auscultation: clear to auscultation bilaterally Cardio Jugular venous distension: no JVD Rate: regular rate Rhythm: regular rhythm Heart sounds: S1 normal heart sound present and S2 normal heart sound present Extrem General: Yes full ROM Right lower extremity: knee Details: tenderness Assessment and Plan Assessment & Plan (1) Right knee pain: Code(s): M25.561 - Pain in right knee Plan: X-ray ordered. Referred to Ortho. (2) Lumbar pain: Code(s): M54.50 - Low back pain, unspecified Plan: X-ray ordered. Orders: Orders XR knee RT 2V Today M25.561 - Pain in right knee XR lumbar spine 2-3V Today M54.50 - Low back pain, unspecified Referrals Orthopedics Referral M25.561 - Pain in right knee Coding Level of Care Code Est Pt Level 3 (74209) Diagnoses Right knee pain M25.561 Lumbar pain M54.50 Time Spent (min) 19
== END 2023-06-12 15:37 | disposition home or self-care (01) ==
PROVIDERS: PCP Internal Medicine; Visit Provider Internal Medicine
DX: M25.561 Pain in right knee (principal); M54.50 Low back pain, unspecified
CPT/HCPCS: 99213

== ENCOUNTER 2023-06-30 08:55 | Outpatient (REF) | payer OTHER, SELFPAY ==
--- NOTE | ~2023-06-30 | XR_ITS ---
EXAMINATION: XR KNEE, RIGHT CLINICAL INFORMATION: Reason for Exam M25.569 - Pain in unspecified knee COMPARISON: Knee radiographs 10/10/2022 TECHNIQUE: 2 views of the right knee and one view of the bilateral knees standing. FINDINGS: No acute fracture or dislocation. Mild degenerative changes of the right knee with lateral patellofemoral compartment osteophytes regressed from prior.. No right joint effusion. Dense sclerotic lesion in the left tibial metaphysis in the absence of any known malignancy may reflect a bone island unchanged from 2022. Soft tissues are unremarkable. XR/XR knee RT 3V IMPRESSION: 1. Mild degenerative changes of the right knee with lateral and patellofemoral compartment osteophytes regressed from prior. 2. Dense sclerotic lesion in the left tibial metaphysis in the absence of any known malignancy may reflect a bone island unchanged from 2022.
== END 2023-06-30 08:56 | disposition home or self-care (01) ==
LOC: HO.HOSX 08:55
PROVIDERS: Visit Provider Orthopaedic Surgery
DX: M25.561 Pain in right knee (principal)
CPT/HCPCS: 20610; 73562; 99202; J0665; J1100

== ENCOUNTER 2023-06-30 10:46 | Outpatient (AMB) | payer OTHER, SELFPAY ==
[2023-06-30 11:15] VITALS: BMI 33.4
--- NOTE | 2023-06-30 11:15 | A.OFFVIS_ITS ---
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 She has previously been seen with Rheumatology. No previous treatment. Patient reports that she has had pain in the right knee for about 2 months. Denies injury. No previous treatment PFSH Medical History Moderate cramps with menses Heavy menstrual bleeding Encounter for well woman exam Abnormal uterine bleeding (AUB) Hypovitaminosis D Blurry vision Cervical cancer screening Vaginal pruritus Mixed hyperlipidemia Surgical History H/O tubal ligation History of tonsillectomy Previous section Family History Father Diabetes Mother Arthritis Maternal Grandmother Arthritis Social History Housing: House Alcohol intake: never Patient Tobacco Use Status: Never used Tobacco e-Cigarette/Vaping Use: Never Used Second Hand Smoke Exposure: No service: No Current occupational status: employed 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 Site was prepped using aseptic technique. Patient tolerated the procedure well. Primary Site: right knee Approach Used: anterolateral Coding 65841 - Large joint Procedure code (CPT) selection complete Results Reviewed Results Reviewed: I personally reviewed relevant radiographs. Nl knee radiographs Assessment & Plan Assessment & Plan (1) Right medial knee pain: Code(s): M25.561 - Pain in right knee Category: Medical Plan I injected the right knee today. PT Genumedi Knee Sleeve Follow up no sooner than 3 months for repeat injections Orders: Orders XR knee standing BI 06/30/23 M25.569 - Pain in unspecified knee Coding Level of Care Code New Pt Level 3 (69391) Diagnoses Right medial knee pain M25.561 CPT Codes Coding - 29150 Large joint: 26847 - Large joint ([id number])
== END 2023-06-30 12:07 | disposition home or self-care (01) ==
PROVIDERS: PCP Internal Medicine; Visit Provider Orthopaedic Surgery
DX: M25.561 Pain in right knee (principal)
CPT/HCPCS: 20610; 99203

== ENCOUNTER 2023-08-07 13:21 | Outpatient (AMB) | payer OTHER, SELFPAY ==
[2023-08-07 13:28] VITALS: BP 120/70; BMI 33.8
--- NOTE | 2023-08-07 13:28 | MHC.PC.OV ---
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 This is aggravated by hot and spicy foods. Relieved by cold liquids. I will refer her to ENT. [facility] Medical History Moderate cramps with menses Heavy menstrual bleeding Encounter for well woman exam Abnormal uterine bleeding (AUB) Hypovitaminosis D Blurry vision Cervical cancer screening Vaginal pruritus Mixed hyperlipidemia Surgical History H/O tubal ligation History of tonsillectomy Previous section Family History Father Diabetes Mother Arthritis Maternal Grandmother Arthritis Social History Housing: House Alcohol intake: never Patient Tobacco Use Status: Never used Tobacco e-Cigarette/Vaping Use: Never Used Second Hand Smoke Exposure: No service: No Current occupational status: employed 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 1. Little interest or pleasure in doing things: not at all 2. Feeling down, depressed, or hopeless: not at all 3. Trouble falling or staying asleep, or sleeping too much: not at all 4. Feeling tired or having little energy: not at all 5. Poor appetite or overeating: not at all 6. Feeling bad about yourself - or that you are a failure or have let yourself or your family down: not at all 7. Trouble concentrating on things, such as reading the newspaper or watching television: not at all 8. Moving or speaking so slowly that other people could have noticed. Or the opposite - being so fidgety or restless that you have been moving around a lot more than usual: not at all 9. Thoughts that you would be better off or of hurting yourself in some way: not at all Total score: 0 Depression Screening Interpretation: Negative Depression Screening Done: Yes 28747 - PHQ-9 Billing: Yes Source: Developed by Drs. Gray Willoughby, Pancho Lockett and colleagues, with an educational aniket from [employer]. Thrive Questionnaire Date Thrive assessed: 06/12/23 DAVID-7 AMB Questionnaire DAVID-7 Date DAVID - 7 assessed: 08/07/23 Feeling nervous, anxious, or on edge: 0 = Not at all Not being able to stop or control worryin = Not at all Worrying too much about different things: 0 = Not at all Trouble relaxin = Not at all Being so restless that it is hard to sit still: 0 = Not at all Becoming easily annoyed or irritable: 0 = Not at all Feeling afraid as if something awful might happen: 0 = Not at all Total DAVID-7 score (0-4 normal; 5-9 mild; 10-14 moderate; 15-21 severe): 0 Source: Developed by Drs. Gray Willoughby, Pancho Lockett and colleagues, with an educational aniket from [employer]. DAVID-7 Assessment Billing DAVID-7 Assessment Tool: DAVID-7 Assessment 49999 Review of Systems Const All systems reviewed & are unremarkable except as noted in HPI and below ENT Denies change in voice, Denies nasal discharge, Denies sinus pain and Reports tongue swelling Card Denies chest pain at rest, Denies chest pain with activity, Denies edema, Denies irregular heart rhythm, Denies claudication, Denies dyspnea, Denies dyspnea on exertion, Denies orthopnea, Denies paroxysmal nocturnal dyspnea and Denies slow heart rate Resp Denies cough, Denies dyspnea and Denies dyspnea on exertion Aller/Immun Reports tongue swelling Physical exam (Primary Care) Vital Signs: Last Vital Signs BP 120/70 08/07/23 13:28 BMI result Body Mass Index 33.8 BMI Assessment/Plan discussion: High BMI High, discussed plan: lifestyle, weight reduction, dietary and physical activity Tobacco/Smoking Status: Tobacco use Status Tobacco use date assessed 06/12/23 08/07/23 13:35 Patient Tobacco Use Status Never used Tobacco 08/07/23 13:35 e-Cigarette/Vaping Use Never Used 08/07/23 13:35 PHQ-9: PHQ-9 Score PHQ-9: Total score 0 08/07/23 13:35 Depression Screening Interpretation: Negative Thrive Assessment: Date of Thrive Assessment Date Thrive assessed 06/12/23 08/07/23 13:35 HENMT Mouth: tongue abnormal fissured Resp Effort & Inspection: normal respiratory effort Auscultation: clear to auscultation bilaterally Cardio Jugular venous distension: no JVD Rate: regular rate Rhythm: regular rhythm Heart sounds: S1 normal heart sound present and S2 normal heart sound present Extrem General: Yes full ROM Assessment and Plan Assessment & Plan (1) 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 Referred to ENT. Avoid hot liquid and spicy foods. 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
== END 2023-08-07 13:44 | disposition home or self-care (01) ==
PROVIDERS: PCP Internal Medicine; Visit Provider Internal Medicine
DX: Q38.3 Other congenital malformations of tongue (principal)
CPT/HCPCS: 99213; G2211

== ENCOUNTER 2023-08-09 14:14 | Outpatient (AMB) | payer OTHER, SELFPAY ==
[2023-08-09 14:26] VITALS: BP 122/74; BMI 33.9
--- NOTE | 2023-08-09 14:26 | A.OFFVIS_ITS ---
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 Doing well with no concerns. She tries to eat healthy and stays active. Regular monthly menses x6d. No pelvic pain or other retail and promotions coordinator concerns. Currently is sexually active. She denies vaginal itching and irritation. STI screening offered; she accepts. Denies family history of ovarian or colon cancer. FH breast cancer-M.cousin. Last pap smear 2020, negative. Mammogram: 2023. 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 Current occupational exposures/hazards: No Gender identity: Female Cognitive needs: No Hearing needs: No Vision needs: No Female Reproductive History Menstrual Age of Menarche: 15 Duration of menses: 6-7 days Date of last menstrual period: 07/19/23 control method: permanent sterilization Total pregnancies: 2 Full term: 2 Number of Living Children: 2 Date of last pap smear: 05/11/20 (negative) Date of Mammogram: 03/13/23 Review of Systems Const All systems reviewed & are unremarkable except as noted in HPI and below Reports as per HPI Eyes Reports no additional complaints ENT Reports no additional complaints Card Reports no additional complaints Resp Reports no additional complaints GI Reports as per HPI and Reports no additional complaints Reports as per HPI Musc Reports no additional complaints Skin/Breast Reports as per HPI Neuro Reports no additional complaints Psych Reports no additional complaints Endo Reports no additional complaints Gallo/Lymph Reports no additional complaints Aller/Immun Reports no additional complaints Physical Exam Vital Signs: Last Vital Signs BP 122/74 08/09/23 14:26 BMI result Body Mass Index 33.9 Const General: cooperative, healthy appearing, no acute distress, well developed and alert Orientation/consciousness: patient oriented x3 HEENT Head: Yes normal to inspection Eyes General: appearance normal, both eyes and all related structures Neck Neck: Yes normal visual inspection Thyroid: Thyroid normal Chest Chest palpation & inspection: normal inspection of the chest and other (no puckering, dimpling, peau de orange, retraction, discharge, masses) Breast/axilla inspection: normal inspection of the breasts Breast/axilla palpation: normal palpation of the breasts Resp Effort & Inspection: normal respiratory effort GI Inspection: Yes normal to inspection Palpation (GI): Soft to palpation Rectal Exam - Female: deferred General: Yes bladder normal to palpation External Female Exam: normal external appearance and normal appearance of the urethra Speculum Exam - Vagina: normal appearance of the vagina, normal palpation and normal vaginal discharge Speculum Exam - Cervix: normal appearance of the cervix and normal palpation Bimanual exam- vagina & uterus: normal bimanual exam, normal palpation, uterine size normal, bladder normal to palpation, normal palpation and non-tender Bimanual Exam- Adnexa, other: no masses Skin General skin exam: no rashes or lesions noted Rashes: no rashes Neuro General: patient oriented x3 Cognition (Neuro): normal cognition Extrem General: Yes normal to inspection Psych Attitude: cooperative Thought process: Normal thought process present Assessment & Plan Assessment & Plan (1) Encounter for well woman exam with routine gynecological exam: Code(s): Z01.419 - Encounter for gynecological examination (general) (routine) without abnormal findings Category: Medical Plan Discussed: Current recommendations for pap smears per ASCCP guidelines. Breast awareness and periodic breast exams. Maintain a healthy lifestyle including a well balanced diet and routine exercise. Menopause verses perimenopause. Menopause is definitive of 1 year of no menses or 12 months in succession. Report any abnormal uterine bleeding in example prolonged episodes, or short intervals less than 21 days. Mammogram yearly. Colonoscopy >45, or at risk sooner, plans to speak to her primary care. Patient verbalizes understanding and agrees to the plan of care. She was given opportunity to ask questions and all questions were answered to the best of my ability. RTO in one year for annual retail and promotions coordinator examination. This note is constructed using voice recognition software. While every effort has been made to ensure accuracy, quality consultant errors may have been included. Coding Level of Care Code Est Pt Prev Care 40-64y(46705) Diagnoses Encounter for well woman exam with routine gynecological exam Z01.419
== END 2023-08-09 15:21 | disposition home or self-care (01) ==
PROVIDERS: PCP Internal Medicine; Visit Provider Advanced Practice Midwife
DX: Z01.419 Encounter for gynecological examination (general) (routine) without abnormal findings (principal)
CPT/HCPCS: 99396

== ENCOUNTER → 2023-08-09 14:14 | Outpatient (BNVA) | payer OTHER, SELFPAY | PROVIDERS: PCP Internal Medicine; Visit Provider Advanced Practice Midwife | DX: Z01.419 Encounter for gynecological examination (general) (routine) without abnormal findings (principal) | CPT/HCPCS: 99396 ==

== ENCOUNTER 2023-08-17 13:35 | Outpatient (AMB) | payer OTHER, SELFPAY ==
--- NOTE | 2023-08-17 14:04 | MHC.OFFVIS ---
Vital Signs 08/17/23 14:19 Height 5 ft 5 in Weight 204 lb BMI 33.9 Intake Visit Reasons: OV-right knee pain-follow up Intake Note: Lidia is a 48 year old female who presents today for a follow up of her right knee, the knee was injected at her last visit on 06/30/23. she was also given a brace and physical therapy. Patient reports that the injection was not helpful at all. She has been wearing the brace but it has not been helpful and was making her leg itchy. Allergies simvastatin Adverse Reaction (Mild, Verified 08/09/23 14:28) hives/ rash HPI HPI OV-right knee pain-follow up: Details: 48 yo with right knee pain. The last injection was not helpful. She got an hour or two of mild relief. She now describes pain radiating down her buttock and posterolateral thigh into her foot. She describes it as a burning type of sensation. She states she can walk but the more she does the more pain she has. Her knee pain is not worse and she feels that something else is going on. [facility] Medical History (Updated 08/17/23 @ 14:45 by Hung Newton MD) Encounter for well woman exam Hypovitaminosis D Blurry vision Cervical cancer screening Mixed hyperlipidemia Surgical History H/O tubal ligation History of tonsillectomy Previous section Family History Father Diabetes Mother Arthritis Maternal Grandmother Arthritis Family/Other Breast cancer Social History Housing: House Alcohol intake: never Patient Tobacco Use Status: Never used Tobacco e-Cigarette/Vaping Use: Never Used Second Hand Smoke Exposure: No service: No Current occupational status: employed 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 They are not severe but are persistent. Her knee pain is tolerable and I suspect this is more related to her back. I wrote her an rx for PT and Meloxicam. She can see me after PT if needed. Orders: Orders PT Evaluation and Treatment 08/17/23 M54.16 - Radiculopathy, lumbar region Medications: New meloxicam 15 mg PO DAILY 30 tabs 0RF Coding Level of Care Code Est Pt Level 4 (53520) Diagnoses Lumbar radiculopathy M54.16
[2023-08-17 14:19] VITALS: BMI 33.9
== END 2023-08-17 15:07 | disposition home or self-care (01) ==
PROVIDERS: PCP Internal Medicine; Visit Provider Orthopaedic Surgery
DX: M54.16 Radiculopathy, lumbar region (principal)
CPT/HCPCS: 99214

== ENCOUNTER → 2023-08-17 13:35 | Outpatient (BNVA) | payer OTHER, SELFPAY | PROVIDERS: PCP Internal Medicine; Visit Provider Orthopaedic Surgery | DX: M54.16 Radiculopathy, lumbar region (principal) | CPT/HCPCS: 99212 ==

== ENCOUNTER 2023-12-30 07:15 | Outpatient (REF) | payer OTHER, SELFPAY ==
[2023-12-30 08:16] LABS: Alanine Aminotransferase 46 U/L (0-31); Albumin Level 4.4 g/dL (3.5-5.0); Alkaline Phosphatase 75 U/L (39-117); Anion Gap 11 (12-20); Aspartate Amino Transferase 46 U/L (5-31); Bilirubin Total 0.4 mg/dL (0.0-1.0); Blood Urea Nitrogen 10 mg/dL (9-16); Calcium 9.8 mg/dL (8.4-10.2); Carbon Dioxide 26 mmol/L (22-29); Chloride 106 mmol/L (96-108); Cholesterol 199 mg/dL (<200); Estimated Glomerular Filt Rate > 60; Glucose Fasting 117 mg/dL (60-99); HDL Cholesterol 42 mg/dL (>40); LDL Cholesterol Calculated 106 mg/dL (<100); Potassium 4.1 mmol/L (3.3-5.1); Sodium 139 mmol/L (135-145); Total Protein 8.1 g/dL (6.5-8.0); Triglycerides 255 mg/dL (<150)
== END 2023-12-30 07:16 | disposition home or self-care (01) ==
LOC: HO.LAB 07:15
PROVIDERS: PCP Internal Medicine; Visit Provider Internal Medicine
DX: M54.50 Low back pain, unspecified (principal); E78.5 Hyperlipidemia, unspecified
CPT/HCPCS: 36415; 80053; 80061

== ENCOUNTER 2024-01-01 08:31 | Outpatient (AMB) | payer OTHER, SELFPAY ==
--- NOTE | 2024-01-01 08:45 | AM.OFFVISNUR ---
Intake Visit Reasons: TB Implant Allergies simvastatin Adverse Reaction (Mild, Verified 08/09/23 14:28) hives/ rash Office Meds tuberculin PPD 5 tub. unit/0.1 mL intradermal injection solution Performing Provider: Meche Avendaño MD Per[facility] [place] [facility] Administered by: Thea Doyle RN on 01/01/24 08:45 Dose Route Admin Location Dispensed Lot Number Expiration Date [facility] [employer] 0.1 mL intradermal left forarm 0.1 mL [id number] 08/02/26 66351-320-46 [employer] Assessment & Plan Assessment & Plan Orders: Orders AMB PPD Planted Today Z11.1 - Encounter for screening for respiratory tuberculosis Medications: New tuberculin PPD 0.1 mL intradermal ONCE 0.1 mL 0RF Z11.1 - Encounter for screening for respiratory tuberculosis
== END 2024-01-01 08:47 | disposition home or self-care (01) ==
PROVIDERS: PCP Internal Medicine; Visit Provider Internal Medicine
DX: Z11.1 Encounter for screening for respiratory tuberculosis (principal)

== ENCOUNTER → 2024-01-01 08:31 | Outpatient (BNVA) | payer OTHER, SELFPAY | PROVIDERS: PCP Internal Medicine; Visit Provider Internal Medicine | DX: Z11.1 Encounter for screening for respiratory tuberculosis (principal) | CPT/HCPCS: 86580 ==

== ENCOUNTER → 2024-01-03 09:12 | Outpatient (BNVA) | payer OTHER, SELFPAY | PROVIDERS: PCP Internal Medicine; Visit Provider Internal Medicine ==

== ENCOUNTER 2024-01-10 12:27 | Outpatient (AMB) | payer OTHER, SELFPAY ==
--- NOTE | 2024-01-10 12:34 | A.OFFPC_ITS ---
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 She is obese with a BMI of 33.4 and has tried diet and exercise with no improvement. Will start her on wegovy. Also complains of fatigue and tiredness. Mammogram done 2023. Pap smear done 2020. Will be refer through open access again for colonoscopy. 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 1. Little interest or pleasure in doing things: nearly every day 2. Feeling down, depressed, or hopeless: nearly every day 3. Trouble falling or staying asleep, or sleeping too much: nearly every day 4. Feeling tired or having little energy: nearly every day 5. Poor appetite or overeating: nearly every day 6. Feeling bad about yourself - or that you are a failure or have let yourself or your family down: not at all 7. Trouble concentrating on things, such as reading the newspaper or watching television: several days 8. Moving or speaking so slowly that other people could have noticed. Or the opposite - being so fidgety or restless that you have been moving around a lot more than usual: nearly every day 9. Thoughts that you would be better off or of hurting yourself in some way: not at all Total score: 19 Depression Screening Interpretation: Positive (no suicidal thoughts) Depression Screening Follow-up: Existing condition and Follow-up Visit Requested Depression Screening Done: Yes 58455 - PHQ-9 Billing: Yes Source: Developed by Drs. Gray Willoughby, Olimpia Jarrett, Pancho Matute and colleagues, with an educational aniket from [employer]. Thrive Questionnaire Date Thrive assessed: 01/10/24 I am a: Patient What is your living situation today?: I have a steady place to live Within the past 12 months, did the food you bought not last and you didn't have the money to get more?: I choose not to answer this question Within the past 12 months, did you worry whether your food would run out before you got money to buy more?: I choose not to answer this question Do you have trouble paying for medicines?: I choose not to answer this question Do you have trouble getting transportation to medical appointments?: I choose not to answer this question Do you have trouble paying your heating and electricity bill?: I choose not to answer this question Do you have trouble taking care of your child, family member or friend?: No Do you have trouble with day-to-day activities such as bathing, preparing meals, shopping, managing finances, etc.?: No Are you currently unemployed and looking for a job?: No Are you interested in more education?: Yes Please select the resources that you would like help with: None Currently or been in a relationship where the following occur: I choose not to answer THRIVE Score: 0 AUDIT C Alcohol Use Questionnaire (AUDIT-C) 1. How often do you have a drink containing alcohol?: Never Total Score: 0 Score Reviewed/Action Taken: No DAVID-7 AMB Questionnaire DAVID-7 Date DAVID - 7 assessed: 01/10/24 Feeling nervous, anxious, or on edge: 0 = Not at all Not being able to stop or control worryin = Not at all Worrying too much about different things: 0 = Not at all Trouble relaxin = Not at all Being so restless that it is hard to sit still: 0 = Not at all Becoming easily annoyed or irritable: 0 = Not at all Feeling afraid as if something awful might happen: 0 = Not at all Total DAVID-7 score (0-4 normal; 5-9 mild; 10-14 moderate; 15-21 severe): 0 Source: Developed by Drs. Gray Willoughby, Olimpia Jarrett, Pancho Matute and colleagues, with an educational aniket from [employer]. DAVID-7 Assessment Billing DAVID-7 Assessment Tool: DAVID-7 Assessment 77109 Review of Systems Const All systems reviewed & are unremarkable except as noted in HPI and below Reports fatigue Card Denies chest pain at rest, Denies chest pain with activity, Denies edema, Denies irregular heart rhythm, Denies claudication, Denies dyspnea, Denies dyspnea on exertion, Denies orthopnea, Denies paroxysmal nocturnal dyspnea and Denies slow heart rate Resp Denies cough, Denies dyspnea and Denies dyspnea on exertion Denies urinary incontinence, Denies urinary hesitancy and Denies urinary urgency Musc Denies atrophy, Denies deformity and Denies limited range of motion Endo Reports fatigue Physical exam (Primary Care) Vital Signs: Last Vital Signs BP 130/76 01/10/24 12:35 BMI result Body Mass Index 33.4 BMI Assessment/Plan discussion: High BMI High, discussed plan: lifestyle, weight reduction, dietary and physical activity Tobacco/Smoking Status: Tobacco use Status Tobacco use date assessed 06/12/23 01/10/24 12:41 Patient Tobacco Use Status Never used Tobacco 01/10/24 12:41 e-Cigarette/Vaping Use Never Used 01/10/24 12:41 PHQ-9: PHQ-9 Score PHQ-9: Total score 19 01/10/24 12:53 Depression Screening Interpretation: Positive (no suicidal thoughts) Depression Screening Follow-up: Existing condition and Follow-up Visit Requested Thrive Assessment: Date of Thrive Assessment Date Thrive assessed 01/10/24 01/10/24 12:41 Currently or been in a relationship where the following occur: I choose not to answer HENMT Head: Yes normal to inspection, Yes normocephalic and Yes atraumatic Ears: external ears normal Eyes General: appearance normal, both eyes and all related structures Eyelids: Yes eyelids normal Conjunctivae: conjunctivae normal Neck Neck: Yes normal visual inspection and Yes supple Resp Effort & Inspection: normal respiratory effort Auscultation: clear to auscultation bilaterally Cardio Jugular venous distension: no JVD Rate: regular rate Rhythm: regular rhythm Heart sounds: S1 normal heart sound present and S2 normal heart sound present GI Inspection: Yes normal to inspection Palpation (GI): Soft to palpation and nontender Auscultation: normal bowel sounds Skin General skin exam: no rashes or lesions noted Neuro General: no focal motor deficits Extrem General: Yes full ROM Psych Appearance: grossly normal Office Procedures Flu Questionnaire Does the patient have a severe egg allergy?: No Immunizations Fluarix Triv [id number] (PF) 45 mcg (15 mcg x 3)/0.5 mL IM syringe Performing Provider: Meche Avendaño MD [facility] [place] [facility] Documented (not given) by: CHANDLER Macias on 01/10/24 12:42 Reason Not Given: Patient Refused Coding Level of Care Code Est Pt Level 3 (81053) Est Pt Prev Care 40-64y(83968) Diagnoses Physical exam Z00.00 Fatigue R53.83 Class 1 obesity with body mass index (BMI) of 33.0 to 33.9 in adult E66.811; Z68.33 Additional Codes DAVID-7 Assessment Billing - DAVID-7 Assessment Tool: DAVID-7 Assessment 93809 ([id number]) PHQ-9 - 91312 - PHQ-9 Billing: Yes ([id number]) Time Spent (min) 32 Assessment & Plan Assessment & Plan (1) Physical exam: Code(s): Z00.00 - Encounter for general adult medical examination without abnormal findings Category: Medical Plan: Repeat in a year. (2) Fatigue: Code(s): R53.83 - Other fatigue Category: Medical Plan: Labs order. (3) Class 1 obesity with body mass index (BMI) of 33.0 to 33.9 in adult: Code(s): E66.811 - Obesity, class 1; Z68.33 - Body mass index [BMI] 33.0-33.9, adult Category: Medical Plan: Start Wegovy. Orders: Orders Influenza [id number] Immunization Today Z23 - Encounter for immunization Comprehensive [place]. Panel Fast 6 Months R73.02 - Impaired glucose tolerance (oral) Complete Blood Count Auto Diff 6 Months D64.9 - Anemia, unspecified Lipid Panel 6 Months E78.5 - Hyperlipidemia, unspecified Vitamin D 25-OH Total 6 Months E55.9 - Vitamin D deficiency, unspecified Thyroid Stimulating Hormone 6 Months R53.83 - Other fatigue Referrals Open Access Screening Colonoscopy Referral Z12.12 - Encounter for screening for malignant neoplasm of rectum Medications: New semaglutide (weight loss) (Wegovy) administer weeks 1 through 4 of therapy 0.25 mg (0.5 mL) subcut QWEEK 4 weeks 2 mL 0RF E66.811 - Obesity, class 1, Z68.33 - Body mass index [BMI] 33.0-33.9, adult fenofibrate 54 mg PO DAILY 90 days 90 tabs 1RF
[2024-01-10 12:35] VITALS: BP 130/76; BMI 33.4
== END 2024-01-10 12:59 | disposition home or self-care (01) ==
LOC: HO.HMCH 12:27
PROVIDERS: PCP Internal Medicine; Visit Provider Internal Medicine
DX: Z00.00 Encounter for general adult medical examination without abnormal findings (principal); R53.83 Other fatigue; E66.811 Obesity, class 1; Z68.33 Body mass index [BMI] 33.0-33.9, adult

== ENCOUNTER → 2024-01-10 12:27 | Outpatient (BNVA) | payer OTHER, SELFPAY | PROVIDERS: PCP Internal Medicine; Visit Provider Internal Medicine | DX: Z00.01 Encounter for general adult medical examination with abnormal findings (principal); R53.83 Other fatigue; E66.811 Obesity, class 1; Z68.33 Body mass index [BMI] 33.0-33.9, adult; Z71.3 Dietary counseling and surveillance | CPT/HCPCS: 96127; 99212; 99396 ==

== ENCOUNTER 2024-02-07 07:46 | Outpatient (AMB) | payer OTHER, SELFPAY ==
[2024-02-07 07:57] VITALS: BP 126/70; BMI 26.1
--- NOTE | 2024-02-07 07:57 | A.OFFPC_ITS ---
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 Required: No Accompanied by: Self / Same As Patient Allergies simvastatin Adverse Reaction (Mild, Verified 02/07/24 08:25) hives/ rash Medication List - Last Reconciled 02/07/24 by Meche Avendaño MD fenofibrate 54 mg PO DAILY 90 days semaglutide (weight loss) (Wegovy) 0.25 mg (0.5 mL) subcut QWEEK 4 weeks Tobacco use date assessed: 06/12/23 Dental Screening Dental Screen Date: 02/07/24 Did you have a dental visit in the last 12 months?: Yes Did you have a dental problem in the last 6 months where you did not have access to dental care?: No Was dental information given to patient?: Patient has dentist HPI HPI Comments History of Present Illness Details The patient is a 48-year-old female presenting with a new breast pain. The pain was first noticed on a Monday when she felt heaviness in one breast. Additionally, this pain cauised itching and burning, affecting her sleep the following Monday. She reported relief after taking ibuprofen, which diminished the pain and swelling. Previously documented hypertriglyceridemia is being managed with fenofibrate and Wegovy, with notable weight reduction. She also has elevated fasting blood glucose levels, suggestive of pre-diabetes, with a plan for further evaluation. An allergy to simvastatin, manifested as a rash and hives, is noted with avoidance of this medication. 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 occupational status: employed 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 Current occupational exposures/hazards: No Gender identity: Female Cognitive needs: No Hearing needs: No Vision needs: No Female Reproductive History Menstrual Age of Menarche: 15 Questionnaire Thrive Questionnaire Date Thrive assessed: 01/10/24 I am a: Patient What is your living situation today?: I have a steady place to live Within the past 12 months, did the food you bought not last and you didn't have the money to get more?: I choose not to answer this question Within the past 12 months, did you worry whether your food would run out before you got money to buy more?: I choose not to answer this question Do you have trouble paying for medicines?: I choose not to answer this question Do you have trouble getting transportation to medical appointments?: I choose not to answer this question Do you have trouble paying your heating and electricity bill?: I choose not to answer this question Do you have trouble taking care of your child, family member or friend?: No Do you have trouble with day-to-day activities such as bathing, preparing meals, shopping, managing finances, etc.?: No Are you currently unemployed and looking for a job?: No Are you interested in more education?: Yes Please select the resources that you would like help with: None Currently or been in a relationship where the following occur: I choose not to answer THRIVE Score: 0 DAVID-7 AMB Questionnaire DAVID-7 Date DAVID - 7 assessed: 01/10/24 Source: Developed by Drs. Gray Willoughby, Olimpia Jarrett, Pancho Matute and colleagues, with an educational aniket from [employer]. Review of Systems Const All systems reviewed & are unremarkable except as noted in HPI and below Eyes Reports no additional complaints, Denies change in vision and Denies other visual disturbances Card Denies chest pain at rest, Denies chest pain with activity, Denies edema, Denies irregular heart rhythm, Denies claudication, Denies dyspnea, Denies dyspnea on exertion, Denies orthopnea, Denies paroxysmal nocturnal dyspnea and Denies slow heart rate Resp Denies cough, Denies dyspnea and Denies dyspnea on exertion GI Denies abdominal pain, Denies change in bowel habits, Denies excessive flatus, Denies nausea and Denies vomiting Skin/Breast Reports breast pain Neuro Denies lack of coordination Physical exam (Primary Care) Vital Signs: Last Vital Signs BP 126/70 02/07/24 07:57 BMI result Body Mass Index 26.1 Tobacco/Smoking Status: Tobacco use Status Tobacco use date assessed 06/12/23 02/07/24 08:00 Patient Tobacco Use Status Never used Tobacco 02/07/24 08:00 e-Cigarette/Vaping Use Never Used 02/07/24 08:00 Thrive Assessment: Date of Thrive Assessment Date Thrive assessed 01/10/24 02/07/24 08:00 Currently or been in a relationship where the following occur: I choose not to answer Chest Breast/axilla inspection: normal inspection of the breasts and normal inspection of the axillae Breast/axilla palpation: normal palpation of the axillae and abnormal palpation of the breast (left breast pain at 6 o'clock and 12 o'clock) Resp Effort & Inspection: normal respiratory effort Auscultation: clear to auscultation bilaterally Cardio Jugular venous distension: no JVD Rate: regular rate Rhythm: regular rhythm Heart sounds: S1 normal heart sound present and S2 normal heart sound present Extrem General: Yes full ROM Office Procedures Flu Questionnaire Does the patient have a severe egg allergy?: No Immunizations Fluarix Triv [id number] (PF) 45 mcg (15 mcg x 3)/0.5 mL IM syringe Performing Provider: Meche Avendaño MD Performing Location: [facility] [place] [facility] Documented (not given) by: CHANDLER Macias on 02/07/24 08:01 Reason Not Given: Patient Refused Coding Level of Care Code Est Pt Level 4 (84462) Complex EM visit Add On G2211 Diagnoses Breast pain, left N64.4 Hives L50.9 Impaired glucose tolerance R73.02 Hypertriglyceridemia E78.1 Time Spent (min) 22 Assessment & Plan Assessment & Plan (1) Breast pain, left: Code(s): N64.4 - Mastodynia Category: Medical (2) Hives: Code(s): L50.9 - Urticaria, unspecified Category: Medical (3) Impaired glucose tolerance: Code(s): R73.02 - Impaired glucose tolerance (oral) Category: Medical (4) Hypertriglyceridemia: Code(s): E78.1 - Pure hyperglyceridemia Category: Medical Plan - Monitor the breast pain; recommend a follow-up in one month to evaluate the need for a diagnostic mammography and ultrasound if symptoms persist. - Continue current medication, fenofibrate, for hypertriglyceridemia, and reassess triglyceride levels and fasting blood glucose in July. - Referral to centrifugal station operator for the ongoing rash and urticarial symptoms. - Discussion of ongoing use of Wegovy for weight management, contact for any exacerbating symptoms. Patient was informed and verbally consented to the use of an ambient scribe for clinic note documentation during this visit. I discussed with the patient the importance of monitoring breast changes. I advised continuing ibuprofen for discomfort, recognizing possible nausea as a side effect of current medications, particularly Wegovy. Monthly follow-up is warranted for further assessment of the breast symptoms. Pre-diabetes was addressed with recommendations for lifestyle modifications monitored through re- evaluation of lab work in July. Further management includes referring her to an centrifugal station operator for chronic urticarial reactions. Screening mammography scheduled but may be moved up if breast symptoms persist. Orders: Orders Influenza [id number] Immunization Today Z23 - Encounter for immunization Lipid Panel 5 Months E78.5 - Hyperlipidemia, unspecified Comprehensive [place]. Panel Fast 5 Months R73.02 - Impaired glucose tolerance (oral) Referrals Allergy & Immunology Referral L50.9 - Urticaria, unspecified Medications: New ibuprofen 600 mg PO Q8H PRN 30 tabs 0RF pain 10 days N64.4 - Mastodynia Patient Instructions: - Continue fenofibrate and Wegovy medication as prescribed. - Use ibuprofen for breast discomfort as needed. - Monitor breast symptoms and report any exacerbation or new symptoms. - Plan for lab tests for triglycerides and fasting glucose in July. - Follow referral to centrifugal station operator for rash. - Notify if adverse symptoms, such as nausea or any new reactions, occur.
== END 2024-02-07 08:33 | disposition home or self-care (01) ==
PROVIDERS: PCP Internal Medicine; Visit Provider Internal Medicine
DX: N64.4 Mastodynia (principal); L50.9 Urticaria, unspecified; R73.02 Impaired glucose tolerance (oral); E78.1 Pure hyperglyceridemia; Z23 Encounter for immunization

== ENCOUNTER → 2024-02-07 07:46 | Outpatient (BNVA) | payer OTHER, SELFPAY | PROVIDERS: PCP Internal Medicine; Visit Provider Internal Medicine | DX: N64.4 Mastodynia (principal); L50.9 Urticaria, unspecified; R73.02 Impaired glucose tolerance (oral); E87.1 Hypo-osmolality and hyponatremia | CPT/HCPCS: 90471; 99212 ==

== ENCOUNTER 2024-03-26 08:14 | Outpatient (REF) | payer OTHER, SELFPAY | END 2024-03-26 08:15 | disposition home or self-care (01) | LOC: HO.MAMMO 08:14 | PROVIDERS: PCP Internal Medicine; Visit Provider Internal Medicine | DX: Z12.31 Encounter for screening mammogram for malignant neoplasm of breast (principal) | CPT/HCPCS: 77063; 77067 ==

== ENCOUNTER → 2024-03-26 08:45 | Outpatient (BNV) | payer OTHER, SELFPAY | PROVIDERS: PCP Internal Medicine; Visit Provider Internal Medicine | DX: Z12.31 Encounter for screening mammogram for malignant neoplasm of breast (principal) | CPT/HCPCS: 77063; 77067 ==

== ENCOUNTER 2024-06-29 07:40 | Outpatient (REF) | payer OTHER, SELFPAY ==
--- OUTSIDE RECORDS SUMMARY | 2024-06-29 07:44 | XMS_ITS | Encounter Summary ---
Author Organization [facility] Address [address] [place] [address] Care Team Providers Care Bobbin Doffer Name Role Phone Liz Pelayo TERRAZZO SUPERVISOR Primary Care Provider [phone] Encounter Details Date Type Department Care Team ([facility] Contact Info) Description 10/21/2021 Dental Interim Note [facility] [address] [place] [phone] Cheri Escoto Y [address] [place], [place] [id number] Social History Tobacco Use Types Packs/Day Years Used Date Smoking Tobacco: Never Smokeless Tobacco: Never Alcohol Use Standard Drinks/Week Comments No 0 (1 standard drink = 0.6 oz pur e alcohol) Social Connections Answer Date Recorded Social Connections and Isolation 0 10/29/2018 Financial Resource Strain Answer Date R ecorded Financial Resource Strain 0 2018 Stress Answer Date Recorded Stress 0 10/29/2018 Physical Activity Answer Date Recorded Physical Activity 0 10/29/2018 Food Insecurity Answer Date Recorded Food 0 10/29/2018 Transportation Needs Answer Date Record ed Transportation 0 10/29/2018 Housing Stability Answer Date Recorded Housing 0 10/29/2018 Safety and Environment Answer Date Isac rded Safety 0 10/29/2018 Utilities Answer Date Recorded Utilities 0 10/29/2018 Employment Answer Date Recorded Employment 0 10/29/2018 Comments No Sex and Gender Information Value Date Recorded Sex Assigned at Female 12/07/2017 8:12 AM PDT Legal Sex Female 5:48 AM PDT Gender Identity Female 12/07/2017 8:12 AM PDT Sexual Orientation Straight 12/07/2017 8: 12 AM PDT documented as of this encounter Plan of Treatment Upcoming Encounters Date Type Department Care Team ([facility] st Contact Info) Description 12/02/2024 9:00 AM EDT Office Visit [facility] Dental [address] [place] [address] Steffanie Buenrostro [address] [place] [address] documented as of this encounter Procedures Procedure Name Priority Date/Time Associated Diagnosis Comments 32 O COMPOSITE - WISDOM (NON BILLABLE) Routine 10/21/2021 12:00 AM EDT 31 MARYAM COMPOSITE - WISDOM (NON BILLABLE) Routine 10/21/2021 12:00 AM EDT 30 MODB COMPOSITE - WISDOM (NON BILLABLE) Routine 10/21/2021 12:00 AM EDT 29 DO COMPOSITE - WISDOM (NON BILLABLE) Routine 10/21/2021 12:00 AM EDT 28 O COMPOSITE - WISDOM (NON BILLABLE) Routine 10/21/2021 12:00 AM EDT 20 DO COMPOSITE - WISDOM (NON BILLABLE) Routine 10/21/2021 12:00 AM EDT 17 O COMPOSITE - WISDOM (NON BILLABLE) Routine 10/21/2021 12:00 AM EDT 16 O COMPOSITE - WISDOM (NON BILLABLE) Routine 10/21/2021 12:00 AM EDT 10 L COMPOSITE - WISDOM (NON BILLABLE) Routine 10/21/2021 12:00 AM EDT 7 L COMPOSITE - WISDOM (NON BILLABLE) Routine 10/21/2021 12:00 AM EDT 6 L COMPOSITE - WISDOM (NON BILLABLE) Routine 10/21/2021 12:00 AM EDT 1 O COMPOSITE - WISDOM (NON BILLABLE) Routine 10/21/2021 12:00 AM EDT 19 RETAINER CROWN-PORCELAIN FUSED PDMT BASE METAL Routine 10/21/2021 12:00 AM EDT 15 RETAINER CROWN-PORCELAIN FUSED PDMT BASE METAL Routine 10/21/2021 12:00 AM EDT 13 RETAINER CROWN-PORCELAIN FUSED PDMT BASE METAL Routine 10/21/2021 12:00 AM EDT 12 RETAINER CROWN-PORCELAIN FUSED PDMT BASE METAL Routine 10/21/2021 12:00 AM EDT 5 RETAINER CROWN-PORCELAIN FUSED PDMT BASE METAL Routine 10/21/2021 12:00 AM EDT 4 RETAINER CROWN-PORCELAIN FUSED PDMT BASE METAL Routine 10/21/2021 12:00 AM EDT 2 RETAINER CROWN-PORCELAIN FUSED PDMT BASE METAL Routine 10/21/2021 12:00 AM EDT 18 PONTIC - PORCELN FUSED PREDOMINANTLY BASE METAL Routine 10/21/2021 12:00 AM EDT 14 PONTIC - PORCELN FUSED PREDOMINANTLY BASE METAL Routine 10/21/2021 12:00 AM EDT 3 PONTIC - PORCELN FUSED PREDOMINANTLY BASE METAL Routine 10/21/2021 12:00 AM EDT documented in this encounter Visit Diagnoses Not on filedocumented in this encounter Additional Health Concerns Assessment Noted Time PHQ-9 Depression Total Score: 12 019 3:57 PM PST documented as of this encounter Care Teams Bobbin Doffer Relationship Specialty Start Date End Date Liz Pelayo FNP [address] [place] [address] PCP - General Family Medicine, GENERAL FARMER 09/27/17 02/29/24 documented as of this encounter
--- OUTSIDE RECORDS SUMMARY | 2024-06-29 07:44 | XMS_ITS | Clinical Summary ---
Author Organization [facility] Address [address] [place] [address] Care Team Providers Care Client Portfolio Manager Name Role Phone Unavailable Primary Care Provider Unavailabl e Social History Tobacco Use Types Packs/Day Years Used Date Smoking Tobacco: Never Assessed Comments Unknown Sex and Gender Information Value Date Recorded Sex Assigned at Not on file Legal Sex Female 10:21 AM EST Gender Identity Not on file Sexual Orientation Not on file Plan of Treatment Health Maintenance Due Date Last Done Comments DTaP,Tdap,and Td Vaccines (1 - Tdap) 1995 Hepatitis B Vaccines (1 of 3 - 19+ 3-dose series) 1995 Cervical Cancer Screening: P ap Smear 1997 Colorectal Cancer Screening: Colonoscopy 02/01/2022 Depression Screening 02/01/2022 HIV Screening 02/01/2022 Hepatitis C Screening 02/01/2022 Social Influencers of Health Screening 02/01/2022 Breast Cancer Screening 08/07/2022 08/08/19 21, 03/19/2019, 12/27/2017 COVID-19 Vaccine (2023-2 5 season) 2023 Influenza Vaccine (Season Ended) 2024 HIB Vaccines Aged Out No longer eligi ble based on patient's age to complete this topic HPV Vaccines Aged Out No longer eligi ble based on patient's age to complete this topic Hepatitis A Vaccines Aged Out No long er eligible based on patient's age to complete this topic IPV Vaccines Aged Out No longer eligi ble based on patient's age to complete this topic MMR Vaccines Aged Out No longer eligi ble based on patient's age to complete this topic Meningococcal ACWY Vaccine Aged Out N o longer eligible based on patient's age to complete this topic Meningococcal B Vaccine Aged Out No l onger eligible based on patient's age to complete this topic Pneumococcal Vaccine: Pediatrics (0 to 5 Years) and At-Risk Patients (6 to 64 Years) Aged Out No longer eligible b ased on patient's age to complete this topic RSV Immunization Patients Under 20 months Aged Out No longer eligible b ased on patient's age to complete this topic Varicella Vaccines Aged Out No longer eligible based on patient's age to complete this topic Procedures Procedure Name Priority Date/Time Associated Diagnosis Comments [facility] SCREENING DIGITAL Routine 08/07/2020 2:21 PM EDT Encounter for screening mammogram for malignant neoplasm of breast from Last 3 Months or Most Recently Relevant to Health Maintenance Results * MARYANN SCREENING DIGITAL (08/07/2020 2:21 PM EDT) Anatomical Region Laterality Modality Mammography 08/07/2020 1:13 PM EDT Narrative 08/07/2020 2:[address] [facility] Diagnostic Imaging Department [address] [place], [place] [id number] Patient: ??LIDIA DURAN ?/Age/Sex: 1975 - 45 - F Unit#: ??[id number] ? Location/Status: ??SPDIMAM/REG CLI ? Mnemonic/Ordering Site: ??DIGSC/SPMAM Ordering Physician: ??ALEXA PELAYO NP Maryann Screening Digital - 08/07/201341 EXAM: [facility] Screening Digital EXAM DATE AND TIME: 08/07/2020 1:53 PM HISTORY: ??Annual screening mammography COMPARISON: ??03/19/2019, 12/27/2017 TECHNIQUE: CC and MLO views of both breasts were obtained using full field digital mammography. ??Exaggerated lateral CC view of the left breast is performed. ??Bilateral digital breast tomosynthesis was performed in the MLO projection. Computer aided detection with the [employer] was employed. TISSUE DENSITY: d. The breasts are extremely dense, which lowers the sensitivity of mammography. FINDINGS: No suspicious masses, grouped microcalcifications, or areas of architectural distortion are seen. ??Stable rare benign calcifications are present. ??The skin and vascularity are unremarkable. IMPRESSION: Stable mammographic appearance of the breasts. ??No evidence of malignancy is seen. A negative mammogram in the presence of a clinically suspicious palpable abnormality does not preclude the possibility of malignancy or alter the indications for biopsy. BI-RADS: ??Category 2: Benign RECOMMENDATION(S): 1: Routine screening mammogram BILATERAL in 1 year. 52360, 13111 3342F, 7025F Dictating Physician: ??JOCY KUNZ MD Electronically Signed by: ??JOCY KUNZ MD Dic Date/Time: ??08/07/20 1418 Sign date/Time: ??08/07/20 1421 Procedure Note Thea Kunz MD - 02/22/[address] [facility] Diagnostic Imaging Department [address] [place] [address] Patient: KANDICE VALENCIALIDIA /Age/Sex: 1975 - 45 - F Unit#: [id number] Location/Status: [facility]/REG CLI Mnemonic/Ordering Site: DIGSC/SPMAM Ordering Physician: ALEXA PELAYO NP [facility] Screening Digital - 08/07/20 - 1342 EXAM: [facility] Screening Digital EXAM DATE AND TIME: 08/07/2020 1:53 PM HISTORY: Annual screening mammography COMPARISON: 03/19/2019, 12/27/2017 TECHNIQUE: CC and MLO views of both breasts were obtained using fullfield digital mammography. Exaggerated lateral CC view of the left breast is performed. Bilateral digital breast tomosynthesis was performed in theMLO projection. Computer aided detection with the [employer] wasemployed. TISSUE DENSITY: d. The breasts are extremely dense, which lowers the sensitivity of mammography. FINDINGS: No suspicious masses, grouped microcalcifications, or areas ofarchitectural distortion are seen. Stable rare benign calcifications are present. Theskin and vascularity are unremarkable. IMPRESSION: Stable mammographic appearance of the breasts. No evidence of malignancyis seen. A negative mammogram in the presence of a clinically suspicious palpable abnormality does not preclude the possibility of malignancy or alter the indications for biopsy. BI-RADS: Category 2: Benign RECOMMENDATION(S): 1: Routine screening mammogram BILATERAL in 1 year. 19272, 81885 3342F, 7025F Dictating Physician: JOCY KUNZ MD Electronically Signed by: JOCY KUNZ MD Dic Date/Time: 08/07/20 1418 Sign date/Time: 08/07/20 1421 Flor Pelayo SNOW BLOWER IMG BI PROCEDURES Final Re sult from Last 3 Months or Most Recently Relevant to Health Maintenance
--- OUTSIDE RECORDS SUMMARY | 2024-06-29 07:44 | XMS_ITS | Clinical Summary ---
Author Organization [facility] Address [address] [place] [address] Care Team Providers Care Tax Assessor Name Role Phone Unavailable Primary Care Provider Unavailabl e Source Comments PLEASE NOTE, if this patient is a minor, it may be UNLAWFUL to discuss sensitive information that is contained in these records (such as FAMILY PLANNING, MENTAL HEALTH or SUBSTANCE ABUSE) with the minor patient's parent or other person without the patient's specific authorization.[facility] Allergies Active Allergy Reactions Criticality Noted Date Comments Simvastatin 12/07/2017 Medications miscellaneous medical supply miscIndication s:Bilateral hand numbness by miscellaneous route once daily Nighttime splinting daily. Lifetime use 2 Each 8 Active ibuprofen 800 mg tabletIndicati ons:Dysmenorrh ea Take 1 Tablet by mouth 3 (three) times daily as needed for pain 90 Tablet 2 0 Active Active Problems Problem Noted Date Diagnosed Date Dysmenorrhea 02/11/2018 H/O mammogram 01/02/2018 Overview (08/10/2020): [facility] is [facility]. Pt entered into a reminder system with a target date for the next mammogram. 08/07/20 Mammo BIRADS 1 Bilateral carpal tunnel syndrome 12/07/2017 Overview (03/14/2018): EMG. Nerve conduction test. 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 Early carpal tunnel syndrome on the right EMG of the left C5-T1 innervated mm consistent with chronic median neuropathy Encounters Date Type Department Care Team Description 05/31/2024 2:20 PM EDT Office Visit [facility] Dental [address] [place] [address] Steffanie Buenrostro Encounter for dental examination (Primary Dx) from Last 3 Months Immunizations Immunization Administration Dates Next Due Flu, Preservative Free 02/21/2019 PFIZER COVID VACCINE, PURPLE CAP, 12+ 02/17/2021 ,01/27/2021 TDAP 02/21/2019 Family History Medical History Relation Name Comments No Known Problems Brother No Known Problems Daughter Diabetes Father High Cholesterol Father Osteoporosis Mother Other (See Comments) Mother Guillia n-[place] Syndrome Cancer Paternal Grandfather Prostat e CA Alzheimer's Disease Paternal Grandmother Diabetes Paternal Grandmother No Known Problems Sister 1 No Known Problems Sister 2 No Known Problems Son Relation Name Status Comments Brother Alive Daughter Alive Father Alive Mother Alive Paternal Grandfather Paternal Grandmother Sister 1 Alive Sister 2 Alive Son Alive Social History Tobacco Use Types Packs/Day Years Used Date Smoking Tobacco: Never Passive Smoke Exposure: Never Smokeless Tobacco: Never Tobacco Cessation:Counseling Given: Not Answered Alcohol Use Standard Drinks/Week Comments No 0 (1 standard drink = 0.6 oz pur e alcohol) Social Connections Answer Date Recorded Connectedness 0 11/20/2023 Financial Resource Strain Answer Date R ecorded Financial Resource Strain 0 2018 Stress Answer Date Recorded Stress 0 10/29/2018 Physical Activity Answer Date Recorded Physical Activity 0 10/29/2018 Food Insecurity Answer Date Recorded Food 0 11/30/2023 Transportation Needs Answer Date Record ed Transportation 0 10/29/2018 Housing Stability Answer Date Recorded Housing 0 10/29/2018 Safety and Environment Answer Date Isac rded Safety 0 10/29/2018 Utilities Answer Date Recorded Utilities 0 10/29/2018 Employment Answer Date Recorded Stress 0 11/20/2023 Comments No Sex and Gender Information Value Date Recorded Sex Assigned at Female 12/07/2017 8:12 AM PDT Legal Sex Female 5:48 AM PDT Gender Identity Female 12/07/2017 8:12 AM PDT Sexual Orientation Straight 12/07/2017 8: 12 AM PDT Last Filed Vital Signs Vital Sign Reading Time Taken Comments Blood Pressure 118/76 05/22/2023 3:32 PM EDT Pulse 72 05/22/2023 3:32 PM EDT Temperature 36.7 ??C (98.1 ??F) 03/19/2019 3:05 PM ES T Respiratory Rate 16 03/19/2019 3:05 PM EST Oxygen Saturation - - Inhaled Oxygen Concentration - - Weight 85.3 kg (188 lb) 03/19/2019 3:05 PM EST Height 157.5 cm (5' 2 ) 03/19/2019 3:05 PM EST Body Mass Index 34.39 03/19/2019 3:05 PM EST Plan of Treatment Upcoming Encounters Date Type Department Care Team (Late st Contact Info) Description 12/02/2024 9:00 AM EDT Office Visit [facility] Dental [address] [place] [phone] Steffanie Buenrostro [address] [place] [address] Health Maintenance Due Date Last Done Comments Anxiety Screening 1975 Dental FMX/[facility]ano 1976 Tobacco Screening 1975 Relationship Safety Screening/Counseling 1991 Imm-Hepatitis B (1 of 3 - 19 + 3-dose series) 1995 Annual Preventive Care Visit 02/22/2020 02/21/2019, 12/07/2017 CT Colonography 2021 Colonoscopy 2021 Colorectal Cancer Screening 2021 FIT/gFOBT 2021 Fecal DNA 2021 Flexible Sigmoidoscopy 2021 Pap Smear 04/25/2021 04/25/2018 Diabetes Screening 02/21/2022 02/21/2019, 1 , 12/12/2017 Breast Cancer Screening (Mammogram) 08/07/2022 08/07/2020, 12/27/2017, 12/27/2017 Cervical Cancer Screening 04/25/2023 HPV Screening 04/25/2023 04/25/2018 Pap + HPV 04/25/2023 04/25/2018 [id number] ( season) 2023 021, 01/27/2021 Imm-Influenza (#1) 2023 02/21/2019 Lipid Screening 02/22/2024 02/21/2019, 12/12/2017 Alcohol and Drug Screen 03/06/2024 01/28/20 20, 04/25/2018, 12/07/2017, Additional history exists Depression Annual Screen 03/06/2024 01/28/2020, 06/2017 Hypertension Screening (#1) 05/21/2024 Dental BW 06/02/2025 05/31/2024, 11/05, 05/22/2023, Additional history exists Dental Examination 06/02/2025 05/31/2024, 0 12/02/2023, 05/22/2023, Additional history exists Dental Perio Charting 06/02/2025 05/31/2024 , 12/02/2023, 03/15/2022 Dental Prophy 06/02/2025 05/31/2024, 11/05, 05/22/2023, Additional history exists Imm-DTaP/Tdap/Td (2 - Td or Tdap) 02/21/2029 019 HIV Screening Completed 03/19/2019, 12/12/2017 Hepatitis C Screening Completed 03/19/2019 Cervical Ablation/Cold-Knife Conization Discontinued Cervical Cryotherapy Discontinued Colposcopy Discontinued Endometrial Biopsy Discontinued Excision/Leep Discontinued HPV Genotyping Discontinued Vaginal Pap Discontinued Vulvoscopy Discontinued Procedures Procedure Name Priority Date/Time Associated Diagnosis Comments PERIODIC ORAL EVALUATION ESTABLISHED PATIENT Routine 05/31/2024 2:20 PM EDT Encounter for dental examination DENTAL CASE MANAGEMENT - MOTIVATIONAL INTV Routine 05/31/2024 2:20 PM EDT Encounter for dental examination PROPHYLAXIS - ADULT Routine 05/31/2024 2 :20 PM EDT Encounter for dental examination COMP PERIODONTAL EVALUATION - NEW/EST PATIENT Routine 05/31/2024 2:20 PM EDT Encounter for dental examination BITEWINGS - FOUR RADIOGRAPHIC IMAGES Routine 05/31/2024 2:20 PM EDT Encounter for dental examination CARIES RISK ASSESSMENT & DOC FINDING HIGH RISK Routine 05/31/2024 2:20 PM EDT Encounter for dental examination NUTRITIONAL COUNSELING CONTROL OF DENTAL DISEASE Routine 05/31/2024 2:20 PM EDT Encounter for dental examination ORAL HYGIENE INSTRUCTIONS Routine 05/31/2024 2:20 PM EDT Encounter for dental examination ORAL CANCER SCREENING Routine 05/31/2024 2:20 PM EDT Encounter for dental examination CASE PRESENTATION SUBS DTL & EXTENSIVE TX PLN Routine 05/31/2024 2:20 PM EDT Encounter for dental examination HISTORIC MAMMOGRAM 08/07/2020 12 :00 AM EDT ANTIBODY HIV-1&HIV-2 SINGLE RESULT Routine 03/19/2019 3:46 PM EST Screening examination for venereal disease HEPATITIS A,B,C PANEL Routine 03/19/2019 3:46 PM EST Screening examination for venereal disease COMPREHENSIVE METABOLIC PANEL Routine 02/21/2019 9:31 AM EST Routine general medical examination at a health care facility LIPID PANEL Routine 02/21/2019 9:31 AM EST Routine general medical examination at a health care facility PAP SMEAR W/HPV, ABSTRACTED Routine 04/25/2018 10:38 AM EST from Last 3 Months or Most Recently Relevant to Health Maintenance Results * HISTORIC MAMMOGRAM (08/07/2020 12:00 AM EDT) Anatomical Region Laterality Modality Other 08/07/2020 Liz Pelayo SECURITY COMPLIANCE ENGINEER IMG MAMMO Final Res ult * (ABNORMAL) HEPATITIS A,B,C PANEL (03/19/2019 3:46 PM EST) HEPATITIS B SURFACE ANTIBODY NEGATIVE NEGATIVE [facility] HEPATITIS B SURFACE ANTIGEN NEGATIVE NEGATIVE [facility] Comment: Over the counter supplements containing high doses of biotin may interfere with this assay. ??If interference is suspected, patients shoud be retested after refraining from biotin supplements for 72 hours. HEPATITIS C VIRUS DIAGNOSTIC NEGATIVE NEGATIVE [facility] HEPATITIS B CORE ANTIBODY NEGATIVE NEGATIVE [facility] HEPATITIS A ANTIBODY TOTAL POSITIVE(A) NEGATIVE [facility] Comment: Over the counter supplements containing high doses of biotin may interfere with this assay. ??If interference is suspected, patients shoud be retested after refraining from biotin supplements for 72 hours. Blood specimen (specimen) Blood / Unknown 03/19/2019 3:46 PM EST 03/19/2019 3:49 PM EST [facility] - 03/19/2019 7:01 PM EST [employer], a member of [address] [address] Changer Fixer - Birgit Snow MD PT ID [id number] ORD# [id number] Liz [facility] - BLOOD DRAW Edited R esult - Final Performing Organization Address City/[facility]/ZIP Co de Phone Number [address] [address], [place] [phone] * HIV-1 & HIV-2 ANTIBODIES (03/19/2019 3:46 PM EST) [facility] HIV 1 AND 2 ANTIBODY SCREEN NEGATIVE NEGATIVE [facility] Comment: This assay is a 4th generation assay allowing for earlier detection of HIV infection by detecting the presence of the HIV-1 p24 antigen as well as the traditional antibodies to HIV type 1 (including group O) and type 2. ??Use of a 4th generation assay is the current CDC recommendation for HIV screening. Blood specimen (specimen) Blood / Unknown 03/19/2019 3:46 PM EST 03/19/2019 3:49 PM EST [facility] - 03/20/2019 12:38 PM EST [employer], a member of [address] [address] Changer Fixer - Birgit Snow MD PT ID [id number] ORD# [id number] Liz [facility] - BLOOD DRAW Final Re sult [address] [address], [place] [phone] * (ABNORMAL) LIPID PANEL (02/21/2019 9:31 AM EST) [facility] CHOLESTEROL 186 0 - 200 mg/dL [facility] TRIGLYCERIDES 224(H) 0 - 150 mg/dL [facility] HDL CHOLESTEROL 46 >40 mg/dL [facility] LDL CALCULATED 96 0 - 100 mg/dL [facility] TC-HDLC RATIO 4.0 0 - 4.4 mg/dL [facility] Blood specimen (specimen) Blood / Unknown 02/21/2019 9:31 AM EST 02/21/2019 9:37 AM EST Narrative [facility] - 02/21/2019 1:05 PM EST [facility], [place] [address] Changer Fixer - Birgit Snow MD PT ID [id number] ORD# [id number] us Liz Pelayo SECURITY COMPLIANCE ENGINEER LAB - BLOOD DRAW Final Re sult Performing Organization Address City/State/[facility] [place] [address], * COMPRE METAB PANEL (02/21/2019 9:31 AM EST) GLUCOSE 97 70 - 100 mg/dL [facility] Comment:Reference range appl icable to fasting specimens only BUN 9 5 - 25 mg/dL [facility] CREAT 0.65 0.5 - 1.1 mg/dL [facility] GLOMERULAR FILTRATION RATE > 60 [facility] Comment: If patient is -Yemeni, multiply result by 1.21 Chronic Kidney Disease: < 60 ml/min/1.73 square meters Kidney Failure: < 15 ml/min/1.73 square meters SODIUM 137 135 - 145 mEq/L [facility] POTASSIUM 3.9 3.5 - 5.5 mmol/L [facility] CHLORIDE 104 96 - 110 mmol/L [facility] CO2 29 21 - 32 mmol/L [facility] ANION GAP 4 3 - 11 [facility] CALCIUM 9.5 8.5 - 10.5 mg/dL [facility] TOTAL PROTEIN 7.8 6.0 - 8.0 G/dL [facility] ALBUMIN 4.1 3.2 - 5.0 G/dL [facility] BILI, TOTAL 0.4 0.0 - 1.4 mg/dL [facility] SGOT 19 10 - 42 U/L [facility] SGPT 37 10 - 60 U/L [facility] ALK PHOS 80 42 - 121 U/L [facility] Blood specimen (specimen) Blood / Unknown 02/21/2019 9:31 AM EST 02/21/2019 9:37 AM EST Narrative [facility] - 02/21/2019 1:05 PM EST [employer], [place] [address] Changer Fixer - Birgit Snow MD PT ID [id number] ORD# [id number] Liz Pelayo SECURITY COMPLIANCE ENGINEER LAB - BLOOD DRAW Final Re sult Performing Organization Address City/[facility]/ZIP Co de Phone Number [address] [address], * PAP SMEAR W/HPV, ABSTRACTED (04/25/2018 10:38 AM EST) PAP SMEAR INTERPRETATION NORMAL NORMAL [facility] HPV (HUMAN PAPILLOMA) NEGATIVE NEGATIVE [facility] HPV TYPE 16 NEGATIVE NEGATIVE [facility] HPV TYPE 18 NEGATIVE NEGATIVE [facility] Specimen from uterine cervix (specimen) 04/25/2018 10:38 AM EST Provider [facility] - NO BLOOD DRAW Final Result [facility] [address] [place] [address], from Last 3 Months or Most Recently Relevant to Health Maintenance Insurance [employer] Member Subscriber Plan / Payer (Ef fective 2017-Present) Name:Lidia Wells Relation to Subscriber:Self Name:Lidia Wells Payer ID:[id number] Type:Indemnity Address: [address] [address] [place] [address] [place]
--- OUTSIDE RECORDS SUMMARY | 2024-06-29 07:44 | XMS_ITS | Data Portability ---
Author Organization [place] - [facility], Allergy Address [address] [place] [address] Care Team Providers Care Oxyacetylene Welder Name Role Phone MECHE MCCLELLAND Primary Care Provider MECHE MCCLELLAND Referring Provider Assessment Encounter Date Assessment Date Assessment LastModified by Organization Details LastModified Time 01/12/2024 01/12/2024 Patient was concerned about a midline tongue fissure. It is a benign variation of normal mucosa. Recommend she stop use of Listerine and instead gentle oral hygiene with brushing or scraping may be more appropriate as occasionally it can have food debris trapped. Otherwise there are no indications for antibiotics or other oral treatments dplosky Not available 01/12/2024 15:34:46 Plan of Treatment Reminders Order Date Submit Date Provider Last Modified By Organization Details Last Modified Time Details Appointments None record ed. Lab None record ed. Referral None record ed. Procedures None record ed. Surgeries None record ed. Imaging None record ed. Medication Orders None record ed. Patient TargetsNo targets recorded. Patient InstructionsNo instructions recorded. Reason for Referral None Reported. Problems Name Problem SNOMED Code Status Onset Date Resolution Date Notes Provider Name and Address Organization Details Recorded Time Lesion of tongue 210782076 Active 024 KODY YUEN MD 100 [facility] 100, [place], [address] , [place] - [facility] 01/12/2024 15:33:47 Problem Notes None recorded. Medical Equipment None Reported. Allergies Allergen ID Allergen Name Allergen Category Reaction Reaction Severity Criticality Documentation Date Start Date Code Code System Note Provider Name and Address Organization Details Recorded Time 234394 simvastat in medicatio n Not available Not available Not available 01/12/2024 35818 RxNorm Meche peralta [place] - [facility] 15:13:16 Medications Name Sig Start Date Stop Date Status Note LastModified by Organization Details LastModified Time Lidocaine Viscous 2 % mucosal solution TAKE 5 ML TO AFFECTED MUCOSAL AREA 2 TIMES A DAY NEEDED FOR PAIN FOR 10 DAYS 01/11 completed Not Available Not Available Not Available meloxicam 15 mg tablet TOME 1 TABLETA POR V A ORAL TODOS LOS D 01/11 completed Not Available Not Available Not Available Gas Relief Extra Strength 125 mg capsule PLEASE SEE ATTACHED FOR DETAILED DIRECTION S 01/11 completed Not Available Not Available Not Available Laxative (bisacodyl) 5 mg tablet,minerva yed release TOME CUATRO TABLETAS POR V A ORAL ONCE FOR 1 DAY TAKE AT NOON THE DAY BEFORE COLONOSCO PY 01/11 completed Not Available Not Available Not Available fenofibrate 54 mg tablet active Not Available Not Available Not Available GaviLyte-G 236 gram-22.74 gram-6.74 gram-5.86 gram oral solution PLEASE SEE ATTACHED FOR DETAILED DIRECTION S 01/11 completed Not Available Not Available Not Available Vitals None Recorded Social History None recorded. Functional Status None recorded. Mental Status None recorded. Family History Nothing Reported. Medical History No medical history recorded. Gynecological HistoryNo gynecological history recorded. Obstetrics History GPAL:G 0 P 0 0 0 0 Past Encounters Encounter ID Performer Location Encounter Start Date Encounter Closed Date Diagnosis/Indication Diagnosis SNOMED-CT Code Diagnosis ICD10 Code Diagnosis Note [id number] KODY YUEN MD [facility] [address] [address] 01/12/2024 15:04:09 01/12/2024 15:47:02 Lesion of tongue 050117165 K14.9 Health Concerns Section Related Observation LastModified by Organization Detai ls LastModified Time None Recorded Concern Status LastModified by Organization Details LastModified Time None Recorded Advance Directives Directive None Recorded Payers Encounter Date Sequence Insurance Name Policy Number Policy Zavala Covered Member ID Zavala Member ID Guarantor Name 01/12/2024 1 [facility] - [employer] (MEDICAID REPLACEMENT - HMO) DARLIN Wells Valencia [id number] Lidia Priscilla Valencia Notes Date Note Type Note Provider Name and Address Organization Details Recorded Time 01/12/2024 text/html ipad -liseth mendez fissureswhite on surface of tongueonset 06/2023no use of any instruments on tongueuses listerine mouth washPCP offered numbing med that was not helpfultobacco - denies KODY YUEN MD [address] [place] [address], [place], [address], [facility] - [facility] 01/12/2024 15:35:05 OBGyn Episode No OBEpisode recorded.
[2024-06-29 07:54] LABS: MANUAL DIFF FLAG NO
[2024-06-29 08:10] LABS: Basophils Percent Auto 0.4 % (0-2); Eosinophils Absolute Auto 0.2 X10*3/uL (0.0-0.4); Eosinophils Percent Auto 2.2 % (0-4); Hematocrit 31.9 % (37.0-47.0); Hemoglobin 9.7 g/dl (12.0-16.0); Imm Gran Abs Auto 0.02 X10*3/uL (0.00-0.03); Imm Gran Pct Auto 0.3 % (0.0-0.4); Lymphocytes Absolute Auto 2.5 X10*3/uL (1.2-4.9); Lymphocytes Percent Auto 36.8 % (20-40); Mean Corpuscular HGB Conc 30.4 g/dl (31.0-35.0); Mean Corpuscular Hemoglobin 20.3 pg (27.0-33.0); Mean Corpuscular Volume 66.6 fL (80.0-98.0); Mean Platelet Volume 9.3 fL (9.4-12.3); Monocytes Absolute Auto 0.6 X10*3/uL (0.1-1.2); Monocytes Percent Auto 8.1 % (2-11); Neutrophils Absolute Auto 3.5 x10*3/uL (2.0-8.3); Neutrophils Percent Auto 52.2 % (45-73); Platelet Count 353 X10*3/uL (160-400); Red Blood Count 4.79 X10*6/uL (4.20-5.50); Red Cell Distribution Width 18.6 % (11.0-16.0); White Blood Count 6.8 X10*3/uL (4.8-10.8)
[2024-06-29 09:26] LABS: Alanine Aminotransferase 39 U/L (0-31); Albumin Level 4.2 g/dL (3.5-5.0); Alkaline Phosphatase 75 U/L (39-117); Anion Gap 11 (12-20); Aspartate Amino Transferase 28 U/L (5-31); Bilirubin Total 0.3 mg/dL (0.0-1.0); Blood Urea Nitrogen 12 mg/dL (9-16); Calcium 9.7 mg/dL (8.4-10.2); Carbon Dioxide 27 mmol/L (22-29); Chloride 106 mmol/L (96-108); Cholesterol 208 mg/dL (<200); Estimated Glomerular Filt Rate > 60; Glucose Fasting 116 mg/dL (60-99); HDL Cholesterol 45 mg/dL (>40); LDL Cholesterol Calculated 116 mg/dL (<100); Potassium 4.1 mmol/L (3.3-5.1); Sodium 140 mmol/L (135-145); Total Protein 7.7 g/dL (6.5-8.0); Triglycerides 238 mg/dL (<150)
[2024-06-29 09:30] LABS: Thyroid Stimulating Hormone 1.66 uIU/mL (0.32-4.0); Vitamin D 25-OH Total 13.7 ng/mL (>30)
== END 2024-06-29 07:41 | disposition home or self-care (01) ==
LOC: HO.LAB 07:40
PROVIDERS: PCP Internal Medicine; Visit Provider Internal Medicine
DX: R73.02 Impaired glucose tolerance (oral) (principal); R53.83 Other fatigue; D64.9 Anemia, unspecified; E78.5 Hyperlipidemia, unspecified; E55.9 Vitamin D deficiency, unspecified
CPT/HCPCS: 36415; 80053; 80061; 82306; 84443; 85025

== ENCOUNTER 2024-07-09 16:58 | Outpatient (AMB) | payer OTHER, SELFPAY ==
--- NOTE | 2024-07-09 17:00 | A.OFFPC_ITS ---
Vital Signs 07/09/24 17:01 Height 5 ft 5 in Weight 195 lb BMI 32.4 BP 130/80 Blood Pressure Location Lt brachial Position Sitting Intake Visit Reasons: depression,lipids Intake Note: Patient here for a follow up depression, lipids Mission Planner Required: No Accompanied by: Self / Same As Patient Allergies simvastatin Adverse Reaction (Mild, Verified 07/09/24 17:10) hives/ rash Medication List - Last Reconciled 07/09/24 by Meche Avendaño MD cholecalciferol (vitamin D3) 50 mcg PO DAILY 90 days fenofibrate 54 mg PO DAILY 90 days Tobacco use date assessed: 07/09/24 Dental Screening Dental Screen Date: 07/09/24 Did you have a dental visit in the last 12 months?: Yes Did you have a dental problem in the last 6 months where you did not have access to dental care?: No Was dental information given to patient?: Patient has dentist HPI HPI Comments History of Present Illness Details The patient is a 49-year-old female presenting with constipation and vitamin D deficiency. She experiences fatigue likely related to her low vitamin D level of 13.7 ng/mL and is taking supplements as advised. The patient is aware of dietary sources of vitamin D and is attempting to increase her intake of such foods. She also reports constipation and agrees to commence treatment for this issue. Additionally, she is being monitored for hypertriglyceridemia, having seen slight improvement from 255 mg/dL to 238 mg/dL with fenofibrate, while her glucose levels remain stable. [facility] Medical History (Updated 07/09/24 @ 18:55 by Meche Avendaño MD) Encounter for well woman exam Hypovitaminosis D Blurry vision Cervical cancer screening Mixed hyperlipidemia Surgical History H/O tubal ligation History of tonsillectomy Previous section Family History Father Diabetes Mother Arthritis Maternal Grandmother Arthritis Family/Other Breast cancer Social History Housing: House Alcohol intake: never Patient Tobacco Use Status: Never used Tobacco e-Cigarette/Vaping Use: Never Used Second Hand Smoke Exposure: No service: No Current occupational status: employed 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 1. Little interest or pleasure in doing things: not at all 2. Feeling down, depressed, or hopeless: not at all 3. Trouble falling or staying asleep, or sleeping too much: not at all 4. Feeling tired or having little energy: not at all 5. Poor appetite or overeating: not at all 6. Feeling bad about yourself - or that you are a failure or have let yourself or your family down: not at all 7. Trouble concentrating on things, such as reading the newspaper or watching television: not at all 8. Moving or speaking so slowly that other people could have noticed. Or the opposite - being so fidgety or restless that you have been moving around a lot more than usual: not at all 9. Thoughts that you would be better off or of hurting yourself in some way: not at all Total score: 0 Depression Screening Interpretation: Negative Depression Screening Done: Yes 64637 - PHQ-9 Billing: Yes Source: Developed by Drs. Gray Willoughby, Olimpia Jarrett, Pancho Matute and colleagues, with an educational aniket from [employer]. Thrive Questionnaire Date Thrive assessed: 07/09/24 I am a: Patient What is your living situation today?: I have a steady place to live Within the past 12 months, did the food you bought not last and you didn't have the money to get more?: I choose not to answer this question Within the past 12 months, did you worry whether your food would run out before you got money to buy more?: I choose not to answer this question Do you have trouble paying for medicines?: I choose not to answer this question Do you have trouble getting transportation to medical appointments?: I choose not to answer this question Do you have trouble paying your heating and electricity bill?: I choose not to answer this question Do you have trouble taking care of your child, family member or friend?: No Do you have trouble with day-to-day activities such as bathing, preparing meals, shopping, managing finances, etc.?: No Are you currently unemployed and looking for a job?: No Are you interested in more education?: Yes Please select the resources that you would like help with: None Currently or been in a relationship where the following occur: I choose not to answer THRIVE Score: 0 AUDIT C Alcohol Use Questionnaire (AUDIT-C) 1. How often do you have a drink containing alcohol?: Never Total Score: 0 Score Reviewed/Action Taken: No DAVID-7 AMB Questionnaire DAVID-7 Date DAVID - 7 assessed: 07/09/24 Feeling nervous, anxious, or on edge: 0 = Not at all Not being able to stop or control worryin = Not at all Worrying too much about different things: 0 = Not at all Trouble relaxin = Not at all Being so restless that it is hard to sit still: 0 = Not at all Becoming easily annoyed or irritable: 0 = Not at all Feeling afraid as if something awful might happen: 0 = Not at all Total DAVID-7 score (0-4 normal; 5-9 mild; 10-14 moderate; 15-21 severe): 0 Source: Developed by Drs. Gray Willoughby, Olimpia Jarrett, Pancho Matute and colleagues, with an educational aniket from [employer]. Review of Systems Const All systems reviewed & are unremarkable except as noted in HPI and below Card Denies chest pain at rest, Denies chest pain with activity, Denies edema, Denies irregular heart rhythm, Denies claudication, Denies dyspnea, Denies dyspnea on exertion, Denies orthopnea, Denies paroxysmal nocturnal dyspnea and Denies slow heart rate Resp Denies cough, Denies dyspnea and Denies dyspnea on exertion Physical exam (Primary Care) Vital Signs: Last Vital Signs BP 130/80 07/09/24 17:01 BMI result Body Mass Index 32.4 Tobacco/Smoking Status: Tobacco use Status Tobacco use date assessed 07/09/24 07/09/24 17:08 Patient Tobacco Use Status Never used Tobacco 07/09/24 17:08 e-Cigarette/Vaping Use Never Used 07/09/24 17:08 PHQ-9: PHQ-9 Score PHQ-9: Total score 0 07/09/24 17:12 Depression Screening Interpretation: Negative Thrive Assessment: Date of Thrive Assessment Date Thrive assessed 07/09/24 07/09/24 17:08 Currently or been in a relationship where the following occur: I choose not to answer Resp Effort & Inspection: normal respiratory effort Auscultation: clear to auscultation bilaterally Cardio Jugular venous distension: no JVD Rate: regular rate Rhythm: regular rhythm Heart sounds: S1 normal heart sound present and S2 normal heart sound present Extrem General: Yes full ROM Coding Level of Care Code Est Pt Level 4 (30156) Complex EM visit Add On G2211 Diagnoses Hypovitaminosis D E55.9 Mixed hyperlipidemia E78.2 Chronic fatigue R53.82 Chronic idiopathic constipation K59.04 Additional Codes PHQ-9 - 12675 - PHQ-9 Billing: Yes ([id number]) Time Spent (min) 22 Assessment & Plan Assessment & Plan (1) Hypovitaminosis D: Code(s): E55.9 - Vitamin D deficiency, unspecified Category: Medical (2) Mixed hyperlipidemia: Code(s): E78.2 - Mixed hyperlipidemia Category: Medical (3) Chronic fatigue: Code(s): R53.82 - Chronic fatigue, unspecified Category: Medical (4) Chronic idiopathic constipation: Code(s): K59.04 - Chronic idiopathic constipation Category: Medical Plan The patient's management will focus on vitamin D supplementation and dietary modification to address her deficiency, with anticipated improvements in fatigue levels. For hypertriglyceridemia, ongoing fenofibrate therapy will continue, aiming for further reduction in triglyceride levels. Constipation will be managed with recommended treatments, which the patient will initiate. Prescriptions and instructions will be sent to her preferred pharmacy location for convenience. Patient was informed and verbally consented to the use of an ambient scribe for clinic note documentation during this visit. I discussed with the patient the management of her vitamin D deficiency, focusing on supplementation and dietary adjustments. We spoke about the risk of fatigue due to low vitamin D levels and the expected benefits of supplementation and dietary changes in improving energy levels. For hypertriglyceridemia, I emph asized the continued use of fenofibrate and the moderate success in lowering triglyceride levels thus far. The patient also received instructions for managing constipation with suggested therapeutic options. We addressed the convenience of having prescriptions sent to a more accessible pharmacy location. Orders: Referrals Open Access Screening Colonoscopy Referral Z12.12 - Encounter for screening for malignant neoplasm of rectum Medications: New docusate calcium 240 mg PO BEDTIME PRN 90 caps 0RF constipation 90 days docusate calcium 240 mg PO BEDTIME 90 days PRN 90 caps 0RF constipation Patient Instructions: - Continue taking prescribed vitamin D supplements. - Include vitamin D-rich foods in the diet, such as milk, yogurt, and salmon. - Start the prescribed treatment for constipation as discussed. - Continue fenofibrate as prescribed for triglyceride management. 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 - Return for follow-up evaluations as advised.
[2024-07-09 17:01] VITALS: BP 130/80; BMI 32.4
--- OUTSIDE RECORDS SUMMARY | 2024-07-09 17:07 | XMS_ITS | Clinical Summary ---
[facility] Organization [facility] Address [address] [place] [address] Care Team Providers Care Lumber Piler Name Role Phone Unavailable Primary Care Provider [...] Procedure Name Priority Date/Time Associated Diagnosis Comments [facility] SCREENING DIGITAL Routine 08/07/2020 2:21 PM EDT Encounter for screening mammogram for malignant neoplasm of breast from Last 3 Months or Most Recently Relevant to Health Maintenance Results * MARYANN SCREENING DIGITAL (08/07/2020 2:21 PM EDT) Anatomical Region Laterality Modality Mammography 08/07/2020 1:13 PM EDT Narrative 08/07/2020 2:21 PM EDT [facility] Diagnostic Imaging Department [address] [place], [place] [id number] Patient: ??LIDIA DURAN ?/Age/Sex: 1975 - 45 - F Unit#: ??[id number] ? Location/Status: ??SPDIMAM/REG CLI ? Mnemonic/Ordering Site: ??DIGSC/SPMAM Ordering Physician: ??ALEXA PELAYO NP Maryann Screening Digital - 08/07/201341 EXAM: [facility] Screening Digital EXAM DATE AND TIME: 08/07/2020 1:53 PM HISTORY: ??Annual screening mammography COMPARISON: ??03/19/2019, 12/27/2017 TECHNIQUE: CC and MLO views of both breasts were obtained using full field digital mammography. ??Exaggerated lateral CC view of the left breast is performed. ??Bilateral digital breast tomosynthesis was performed in the MLO projection. Computer aided detection with the [employer] was employed. TISSUE DENSITY: d. The breasts [...] Routine screening mammogram BILATERAL in 1 year. [address], [address]006 3342F, 7025F Dictating Physician: ??JOCY KUNZ MD Electronically Signed by: ??JOCY KUNZ MD Dic Date/Time: ??08/07/20 1418 Sign date/Time: ??08/07/20 1421 Procedure Note Thea Kunz MD - 02/22/2022 [facility] Diagnostic Imaging Department [address] [place] [address] Patient: KANDICE VALENCIALIDIA /Age/Sex: 1975 - 45 - F Unit#: [id number] Location/Status: [facility]/REG CLI Mnemonic/Ordering Site: DIGSC/SPMAM Ordering Physician: ALEXA PELAYO NP [facility] Screening Digital - 08/07/20 - 1342 EXAM: [facility] Screening Digital EXAM DATE AND TIME: 08/07/2020 1:53 PM HISTORY: Annual screening mammography COMPARISON: 03/19/2019, 12/27/2017 TECHNIQUE: CC and MLO views of both breasts were obtained using fullfield digital mammography. Exaggerated lateral CC view of the left breast is performed. Bilateral digital breast tomosynthesis was performed in theMLO projection. Computer aided detection with the [employer] wasemployed. TISSUE DENSITY: d. The breasts [...] Routine screening mammogram BILATERAL in 1 year. [address], [address]4719 3342F, 7025F Dictating Physician: JOCY KUNZ MD Electronically Signed by: JOCY KUNZ MD Dic Date/Time: 08/07/20 1418 Sign date/Time: 08/07/20 1421 Flor Pelayo GAME DEVELOPER IMG BI PROCEDURES Final Re sult from Last 3 Months or Most Recently Relevant to Health Maintenance
--- OUTSIDE RECORDS SUMMARY | 2024-07-09 17:07 | XMS_ITS | Encounter Summary ---
Author Organization [facility] Address [address] [place] [address] Care Team Providers Care Health Information Clerk Name Role Phone Liz Pelayo NETWORK RELATIONS CONSULTANT Primary Care Provider [phone] Encounter Details Date Type Department Care Team ([facility] Contact Info) Description 10/21/2021 Dental Interim Note Caring [facility] Dental [address] [place] [phone] Cheri Escoto Y [address] [place], [place] [phone] Social History Tobacco Use Types Packs/Day Years [...] Upcoming Encounters Date Type Department Care Team ([facility] st Contact Info) Description 12/02/2024 9:00 AM EDT Office Visit [facility] Dental [address] [place] [address] Steffanie Buenrostro [address] [place] [address] documented as of this encounter Procedures Procedure [...] documented as of this encounter Care Teams Health Information Clerk Relationship Specialty Start Date End Date Liz Pelayo FNP [address] [place] [address] PCP - General Family Medicine, TRAVEL MONEY ADVISOR 09/27/17 02/29/24 documented as of this encounter
--- OUTSIDE RECORDS SUMMARY | 2024-07-09 17:07 | XMS_ITS | Data Portability ---
Author Organization [place] - [facility], Allergy Address [address] [place] [address] Care Team Providers Care Food Mobile Driver Name Role Phone MECHE MCCLELLAND Primary Care Provider [phone] MECHE MCCLELLAND Referring Provider Assessment Encounter Date [...] Organization Details Recorded Time Lesion of tongue 137490500 Active 024 KODY YUEN MD 100 [facility] 100, [facility] [place], [address] , [place] - [facility] 01/12/2024 15:33:47 Problem Notes None recorded. Medical Equipment None Reported. Allergies Allergen ID Allergen Name Allergen Category Reaction Reaction Severity Criticality Documentation Date Start Date Code Code System Note Provider Name and Address Organization Details Recorded Time 700553 simvastat in medicatio n Not available Not available Not available 01/12/2024 62331 RxNorm Meche peralta [place] - [facility] 15:13:16 Medications Name Sig Start Date [...] SNOMED-CT Code Diagnosis ICD10 Code Diagnosis Note [id number] KODY YUEN MD [facility] [address] [address] 01/12/2024 15:04:09 01/12/2024 15:47:02 Lesion of tongue 429376663 K14.9 Health Concerns Section Related Observation LastModified by Organization Detai ls LastModified Time None Recorded Concern Status LastModified by Organization Details LastModified Time None Recorded Advance Directives Directive None Recorded Payers Encounter Date Sequence Insurance Name Policy Number Policy Zavala Covered Member ID Zavala Member ID Guarantor Name 01/12/2024 1 [facility] - [employer] A[employer] (MEDICAID REPLACEMENT - HMO) DARLIN Wells Valencia [id number] Lidia Priscilla Valencia Notes Date Note Type Note Provider Name and Address Organization Details Recorded Time 01/12/2024 text/html ipad -liseth mendez fissureswhite on surface of tongueonset 06/2023no use of any instruments on tongueuses listerine mouth washPCP offered numbing med that was not helpfultobacco - denies KODY YUEN MD [address] [place] [address], [place], [address], [facility] - [facility] 01/12/2024 15:35:05 OBGyn Episode No OBEpisode recorded.
--- OUTSIDE RECORDS SUMMARY | 2024-07-09 17:07 | XMS_ITS | Clinical Summary ---
Author Organization [facility] Address [address] [place] [address] Care Team Providers Care Editor Department Name Role Phone Unavailable Primary Care Provider [...] mammogram 01/02/2018 Overview (08/10/2020): [facility] Annual [facility] is recommended. Pt entered into a reminder system with a target date for the next mammogram. 08/07/20 Mammo BIRADS 1 Bilateral carpal tunnel syndrome 12/07/2017 Overview (03/14/2018): EMG. Nerve conduction test. 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 Early carpal tunnel syndrome on the right EMG of the left C5-T1 innervated mm consistent with chronic median neuropathy Encounters Date Type Department Care Team Description 05/31/2024 2:20 PM EDT Office Visit [facility] [address] [place] [address] Steffanie Buenrostro Encounter for dental examination (Primary Dx) from Last 3 Months Immunizations Immunization Administration Dates Next Due Flu, Preservative Free 02/21/2019 PFIZER COVID VACCINE, PURPLE CAP, 12+ 02/17/2021 ,01/27/2021 TDAP 02/21/2019 Family History Medical History Relation Name Comments No Known Problems Brother No Known Problems Daughter Diabetes Father High Cholesterol Father Osteoporosis Mother Other (See Comments) Mother Guillia n-[place] Syndrome Cancer Paternal Grandfather Prostat e CA [...] Description 12/02/2024 9:00 AM EDT Office Visit [facility] [address] [place] [phone] Steffanie Buenrostro [address] [place] [address] Health Maintenance Due Date Last Done Comments [...] 04/25/2023 04/25/2018 Pap + HPV 04/25/2023 04/25/2018 [id number] ( season) 2023 021, 01/27/2021 Imm-Influenza (#1) [...] Region Laterality Modality Other 08/07/2020 Liz Pelayo WINDOWS DEPLOYMENT TECHNICIAN IMG MAMMO Final Res ult * (ABNORMAL) HEPATITIS A,B,C PANEL (03/19/2019 3:46 PM EST) HEPATITIS B SURFACE ANTIBODY NEGATIVE NEGATIVE [facility] HEPATITIS B SURFACE ANTIGEN NEGATIVE NEGATIVE [facility] Comment: Over the counter supplements containing high doses of biotin may interfere with this assay. ??If interference is suspected, patients shoud be retested after refraining from biotin supplements for 72 hours. HEPATITIS C VIRUS DIAGNOSTIC NEGATIVE NEGATIVE [facility] HEPATITIS B CORE ANTIBODY NEGATIVE NEGATIVE [facility] HEPATITIS A ANTIBODY TOTAL POSITIVE(A) NEGATIVE [facility] Comment: Over the counter supplements containing high doses of biotin may interfere with this assay. ??If interference is suspected, patients shoud be retested after refraining from biotin supplements for 72 hours. Blood specimen (specimen) Blood / Unknown 03/19/2019 3:46 PM EST 03/19/2019 3:49 PM EST [facility] - 03/19/2019 7:01 PM EST [employer], a member of [address] [address] Optical Fabricator - Birgit Snow MD PT ID [id number] ORD# [id number] [facility] - BLOOD DRAW Edited R esult - Final Performing Organization Address City/[facility]/ZIP Co de Phone Number [address] [address], [place] [phone] * HIV-1 & HIV-2 ANTIBODIES (03/19/2019 3:46 PM EST) [facility] HIV 1 AND 2 ANTIBODY SCREEN NEGATIVE NEGATIVE [facility] Comment: This assay is a 4th generation [...] 3:46 PM EST 03/19/2019 3:49 PM EST [facility] - 03/20/2019 12:38 PM EST [employer], a member of [address] [address] Optical Fabricator - Birgit Snow MD PT ID [id number] ORD# [id number] Liz [facility]AMES [facility] - BLOOD DRAW Final Re sult [address] [address], [place] [phone] * (ABNORMAL) LIPID PANEL (02/21/2019 9:31 AM EST) [facility] CHOLESTEROL 186 0 - 200 mg/dL [facility] TRIGLYCERIDES 224(H) 0 - 150 mg/dL [facility] HDL CHOLESTEROL 46 >40 mg/dL [facility] LDL CALCULATED 96 0 - 100 mg/dL [facility] TC-HDLC RATIO 4.0 0 - 4.4 mg/dL [facility] Blood specimen (specimen) Blood / Unknown 02/21/2019 9:31 AM EST 02/21/2019 9:37 AM EST Narrative [facility] - 02/21/2019 1:05 PM EST [facility], [place] [address] Optical Fabricator - Birgit Snow MD PT ID [id number] ORD# [id number] us Liz Pelayo WINDOWS DEPLOYMENT TECHNICIAN LAB - BLOOD DRAW Final Re sult Performing Organization Address City/State/[facility] [place] [address], * COMPRE METAB PANEL (02/21/2019 9:31 AM EST) GLUCOSE 97 70 - 100 mg/dL [facility] Comment:Reference range appl icable to fasting specimens only BUN 9 5 - 25 mg/dL [facility] CREAT 0.65 0.5 - 1.1 mg/dL [facility] GLOMERULAR FILTRATION RATE > 60 [facility] Comment: If patient is -Palestinian, multiply result by 1.21 Chronic Kidney Disease: < 60 ml/min/1.73 square meters Kidney Failure: < 15 ml/min/1.73 square meters SODIUM 137 135 - 145 mEq/L [facility] POTASSIUM 3.9 3.5 - 5.5 mmol/L [facility] CHLORIDE 104 96 - 110 mmol/L [facility] CO2 29 21 - 32 mmol/L [facility] ANION GAP 4 3 - 11 [facility] CALCIUM 9.5 8.5 - 10.5 mg/dL [facility] TOTAL PROTEIN 7.8 6.0 - 8.0 G/dL [facility] ALBUMIN 4.1 3.2 - 5.0 G/dL [facility] BILI, TOTAL 0.4 0.0 - 1.4 mg/dL [facility] SGOT 19 10 - 42 U/L [facility] SGPT 37 10 - 60 U/L [facility] ALK PHOS 80 42 - 121 U/L [facility] Blood specimen (specimen) Blood / Unknown 02/21/2019 9:31 AM EST 02/21/2019 9:37 AM EST Narrative [facility] - 02/21/2019 1:05 PM EST [employer], [place] [address] Optical Fabricator - Birgit Snow MD PT ID [id number] ORD# [id number] Liz Pelayo WINDOWS DEPLOYMENT TECHNICIAN LAB - BLOOD DRAW Final Re sult Performing Organization Address City/[facility]/ZIP Co de Phone Number [address] [address], * PAP SMEAR W/HPV, ABSTRACTED (04/25/2018 10:38 AM EST) PAP SMEAR INTERPRETATION NORMAL NORMAL [facility] HPV (HUMAN PAPILLOMA) NEGATIVE NEGATIVE [facility] HPV TYPE 16 NEGATIVE NEGATIVE [facility] HPV TYPE 18 NEGATIVE NEGATIVE [facility] Specimen from uterine cervix (specimen) 04/25/2018 10:38 AM EST Provider [facility] - NO BLOOD DRAW Final Result [facility] [address] [place] [address], from Last 3 Months or Most Recently Relevant to Health Maintenance Insurance [employer] Member Subscriber Plan / Payer (Ef fective 2017-Present) Name:Lidia Wells Relation to Subscriber:Self Name:Lidia Wells Payer ID:[id number] Type:Indemnity Address: [address] [address] [place] [address] [place] MED[place] DENTAL
== END 2024-07-09 17:21 | disposition home or self-care (01) ==
LOC: HO.HMCH 16:59
PROVIDERS: PCP Internal Medicine; Visit Provider Internal Medicine
DX: E55.9 Vitamin D deficiency, unspecified (principal); E78.2 Mixed hyperlipidemia; R53.82 Chronic fatigue, unspecified; K59.04 Chronic idiopathic constipation

== ENCOUNTER → 2024-07-09 16:58 | Outpatient (BNVA) | payer OTHER, SELFPAY | PROVIDERS: PCP Internal Medicine; Visit Provider Internal Medicine | DX: E55.9 Vitamin D deficiency, unspecified (principal); E78.2 Mixed hyperlipidemia; R53.82 Chronic fatigue, unspecified; K59.04 Chronic idiopathic constipation | CPT/HCPCS: 96127; 99212 ==

== ENCOUNTER 2024-12-05 06:41 | Day surgery (SDC) | payer OTHER, SELFPAY ==
--- OUTSIDE RECORDS SUMMARY | 2024-11-25 13:56 | XMS_ITS | Clinical Summary ---
Author Organization [facility] Address [address] [place] [address] Care Team Providers Care Store Leader Name Role Phone Unavailable Primary Care Provider [...] Smear 1997 Colorectal Cancer Screening: Colonoscopy 02/01/2022 HIV Screening 02/01/2022 Hepatitis C Screening 02/01/2022 Social Influencers of Health Screening 02/01/2022 Breast Cancer Screening 08/07/2022 08/08/19, 03/19/2019, 12/27/2017 Depression Screening 03/06/2024 COVID-19 Vaccine ( - 2023-2 5 season) 2024 Influenza Vaccine (#1) 2024 HIB Vaccines Aged Out No longer [...] 5 Years) and At-Risk Patients (6 to 49 Years) Aged Out No longer eligible b ased on patient's age to complete this topic RSV Immunization Patients Under 20 months Aged Out No longer eligible b ased on patient's age to complete this topic Varicella Vaccines Aged Out No longer eligible based on patient's age to complete this topic Procedures Procedure Name Priority Date/Time Associated Diagnosis Comments [facility] SCREENING DIGITAL Routine 08/07/2020 2:21 PM EDT Encounter for screening mammogram for malignant neoplasm of breast from Last 3 Months or Most Recently Relevant to Health Maintenance Results * [facility] SCREENING [facility] (08/07/2020 2:21 PM EDT) Anatomical Region Laterality Modality Mammography 08/07/2020 1:13 PM EDT Narrative 08/07/2020 2:21 PM EDT [facility] Diagnostic Imaging Department [address] [place] [address] Patient: KANDICE VALENCIALIDIA /Age/Sex: 1975 - 45 - F Unit#: [id number] Location/Status: [facility] Mnemonic/Ordering Site: DIGSC/SPMAM Ordering Physician: ALEXA PELAYO NP Maryann Screening Digital - 08/07/201341 EXAM: [facility] Screening Digital EXAM DATE AND TIME: 08/07/2020 1:53 PM HISTORY: Annual screening mammography COMPARISON: 03/19/2019, 12/27/2017 TECHNIQUE: CC and MLO views of both breasts were obtained using full field digital mammography. Exaggerated lateral CC view of the left breast is performed. Bilateral digital breast tomosynthesis was performed in the MLO projection. Computer aided detection with the [employer] 7.2-H was employed. TISSUE DENSITY: d. The breasts are extremely dense, which lowers the sensitivity of mammography. FINDINGS: No suspicious masses, grouped microcalcifications, or areas of architectural distortion are seen. Stable rare benign calcifications are present. The skin and vascularity are unremarkable. IMPRESSION: Stable mammographic appearance of the breasts. No evidence of malignancy is seen. A negative mammogram in the presence of a clinically suspicious palpable abnormality does not preclude the possibility of malignancy or alter the indications for biopsy. BI-RADS: Category 2: Benign RECOMMENDATION(S): 1: Routine screening mammogram BILATERAL in 1 year. [address]4601, 83047 3342F, 7025F Dictating Physician: JOCY KUNZ MD Electronically Signed by: JOCY KUNZ MD Dic Date/Time: 08/07/20 1418 Sign date/Time: 08/07/20 1421 Procedure Note Thea Kunz MD - 02/22/2022 [facility] Diagnostic Imaging Department [address] [place] [address] Patient: WOODSON LIDIA VALENCIA./Age/Sex: 1975 - 45 - F Unit#: [id number] Location/Status: [facility] Mnemonic/Ordering Site: [facility] Ordering Physician: ALEXA PELAYO NP Maryann Screening Digital - 08/07/20 - 1342 EXAM: [facility] Screening Digital EXAM DATE AND TIME: 08/07/2020 1:53 PM HISTORY: Annual screening mammography COMPARISON: 03/19/2019, 12/27/2017 TECHNIQUE: CC and MLO views of both breasts were obtained using fullfield digital mammography. Exaggerated lateral CC view of the left breast is performed. Bilateral digital breast tomosynthesis was performed in theMLO projection. Computer aided detection with the [employer] 7.2-H wasemployed. TISSUE DENSITY: d. The breasts [...] Routine screening mammogram BILATERAL in 1 year. [address]338, 03520 3342F, 7025F Dictating Physician: JOCY KUNZ MD Electronically Signed by: JOCY KUNZ MD Dic Date/Time: 08/07/20 1418 Sign date/Time: 08/07/20 142 Flor Pelayo RUG SETTER AXMINSTER IMG BI PROCEDURES Final Re sult from Last 3 Months or Most Recently Relevant to Health Maintenance
--- OUTSIDE RECORDS SUMMARY | 2024-11-25 13:56 | XMS_ITS | Clinical Summary ---
Author Organization [facility] Address [address] [place] [address] Care Team Providers Care Spine Specialist Name Role Phone Unavailable Primary Care Provider [...] mammogram 01/02/2018 Overview (08/10/2020): [facility] Annual [facility] is recommended. Pt entered into a reminder system with a target date for the next mammogram. 08/07/20 Mammo BIRADS 1 Bilateral carpal tunnel syndrome 12/07/2017 Overview (03/14/2018): EMG. [facility] conduction test. 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 Early carpal tunnel syndrome on the right EMG of the left C5-T1 innervated mm consistent with chronic median neuropathy Immunizations Immunization Administration Dates Next Due Flu, Preservative Free 02/21/2019 PFIZER COVID VACCINE, PURPLE CAP, 12+ 02/17/2021 ,01/27/2021 TDAP 02/21/2019 Family History Medical History Relation Name Comments No Known Problems Brother No Known Problems Daughter Diabetes Father High Cholesterol Father Osteoporosis Mother Other (See Comments) Mother Guillia n-[place] Syndrome Cancer Paternal Grandfather Prostat e CA [...] 73 05/22/2023 3:32 PM EDT Temperature 36.7 C (98.1 F) 03/19/2019 3:05 PM EST Respiratory Rate 16 03/19/2019 3:05 PM EST [...] Description 12/02/2024 9:00 AM EDT Office Visit [facility] [address] [place] [phone] Steffanie Buenrostro [address] [place] [address] Health Maintenance Due Date Last Done Comments Anxiety Screening 1975 Dental FMX/Pano 1975 Tobacco Screening 1975 Relationship Safety Screening/Counseling 1991 Imm-Hepatitis B (1 of 3 - 19 + 3-dose series) 1995 Annual Wellness (Adult): Indicated (All Coverage) 02/22/2020 02/21/2019, 12/07/2017 CT Colonography 2021 Colonoscopy 2021 Colorectal Cancer Screening 2021 FIT/gFOBT 2021 Fecal DNA 2021 Flexible Sigmoidoscopy 2021 Pap Smear 04/25/2021 04/25/2018 Diabetes Screening 02/21/2022 02/21/2019, 1 , 12/12/2017 Breast Cancer Screening (Mammogram) 08/07/2022 08/07/2020, 12/27/2017, 12/27/2017 Cervical Cancer Screening 04/25/2023 HPV Screening 04/25/2023 04/25/2018 Pap + HPV 04/25/2023 04/25/2018 Lipid Screening 02/22/2024 02/21/2019, 12/12/2017 Alcohol and Drug Screen 03/06/2024 01/28/20 20, 04/25/2018, 12/07/2017, Additional history exists Depression Annual Screen 03/06/2024 01/28/2020, 1006/2017 Hypertension Screening (#1) 05/21/2024 [id number] ( season) 2024 021, 01/27/2021 Imm-Influenza (#1) 2024 02/21/2019 Dental BW 06/02/2025 05/31/2024, 11/05, 05/22/2023, Additional [...] Procedure Name Priority Date/Time Associated Diagnosis Comments COMP PERIODONTAL EVALUATION - NEW/EST PATIENT Routine 05/31/2024 2:20 PM EDT Encounter for dental examination BITEWINGS - FOUR RADIOGRAPHIC IMAGES Routine 05/31/2024 2:20 PM EDT Encounter for dental examination PROPHYLAXIS - ADULT Routine 05/31/2024 2 :20 PM EDT Encounter for dental examination PERIODIC ORAL EVALUATION ESTABLISHED PATIENT Routine 05/31/2024 [...] Anatomical Region Laterality Modality Other 08/07/2020 Liz JAMES IMG MAMMO Final Res ult * (ABNORMAL) HEPATITIS A,B,C PANEL (03/19/2019 3:46 PM EST) HEPATITIS B SURFACE ANTIBODY NEGATIVE NEGATIVE [facility] HEPATITIS B SURFACE ANTIGEN NEGATIVE NEGATIVE [facility] Comment: Over the counter supplements containing high doses of biotin may interfere with this assay. If interference is suspected, patients shoud be retested after refraining from biotin supplements for 72 hours. HEPATITIS C VIRUS DIAGNOSTIC NEGATIVE NEGATIVE [facility] HEPATITIS B CORE ANTIBODY NEGATIVE NEGATIVE [facility] HEPATITIS A ANTIBODY TOTAL POSITIVE(A) NEGATIVE [facility] Comment: Over the counter supplements containing high doses of biotin may interfere with this assay. If interference is suspected, patients shoud be retested after refraining from biotin supplements for 72 hours. Blood specimen (specimen) Blood / Unknown 03/19/2019 3:46 PM EST 03/19/2019 3:49 PM EST Narrative [facility] - 03/19/2019 7:01 PM EST [employer], [place] [address] Microfilming Document Preparer - Birgit Snow MD PT ID [id number] ORD# [id number] Liz JAMES LAB - BLOOD DRAW [place] [address], * HIV-1 & HIV-2 ANTIBODIES (03/19/2019 3:46 PM EST) Pathologist [facility] HIV 1 AND 2 ANTIBODY SCREEN NEGATIVE NEGATIVE [facility] Comment: This assay is a 4th generation assay allowing for earlier detection of HIV infection by detecting the presence of the HIV-1 p24 antigen as well as the traditional antibodies to HIV type 1 (including group O) and type 2. Use of a 4th generation assay is the current CDC recommendation for HIV screening. Blood specimen (specimen) Blood / Unknown 03/19/2019 3:46 PM EST 03/19/2019 3:49 PM EST Jignesh [facility] - 03/20/2019 12:38 PM EST [employer], [place] [address] Microfilming Document Preparer - Birgit Snow MD PT ID [id number] ORD# [id number] Liz JAMES LAB - [place]LOOD [place] [address], * (ABNORMAL) LIPID PANEL (02/21/2019 9:31 AM EST) [facility] CHOLESTEROL 186 0 - 200 mg/dL [facility] TRIGLYCERIDES 224(H) 0 - 150 mg/dL [facility] HDL CHOLESTEROL 46 >40 mg/dL [facility] LDL CALCULATED 96 0 - 100 mg/dL [facility] TC-HDLC RATIO 4.0 0 - 4.4 mg/dL [facility] Blood specimen (specimen) Blood / Unknown 02/21/2019 9:31 AM EST 02/21/2019 9:37 AM EST Narrative [facility] - 02/21/2019 1:05 PM EST [facility], [place] [address] Microfilming Document Preparer - Birgit Snow MD PT ID [id number] ORD# [id number] Halima Gita LOADING MACHINE OPERATOR LAB - BLOOD DRAW Final Re sult [facility] [address] [place] [address], * COMPRE METAB PANEL (CMP) (02/21/2019 9:31 AM EST) GLUCOSE 97 70 - 100 mg/dL [facility] Comment:Reference range appl icable to fasting specimens only BUN 9 5 - 25 mg/dL [facility] CREAT 0.65 0.5 - 1.1 mg/dL [facility] GLOMERULAR FILTRATION RATE > 60 [facility] Comment: If patient is -[place] Zeal[place], multiply result by 1.21 Chronic Kidney Disease: < 60 ml/min/1.73 square meters Kidney Failure: < 15 ml/min/1.73 square meters SODIUM 137 135 - 145 mEq/L [facility] POTASSIUM 3.9 3.5 - 5.5 mmol/L [facility] CHLORIDE 104 96 - 110 mmol/L [facility] CO2 29 21 - 32 mmol/L [facility] ANION GAP 4 3 - 11 [facility] CALCIUM 9.5 8.5 - 10.5 mg/dL [facility] TOTAL PROTEIN 7.8 6.0 - 8.0 G/dL [facility] ALBUMIN 4.1 3.2 - 5.0 G/dL [facility] BILI, TOTAL 0.4 0.0 - 1.4 mg/dL [facility] SGOT 19 10 - 42 U/L [facility] SGPT 37 10 - 60 U/L [facility] ALK PHOS 80 42 - 121 U/L [facility] Blood specimen (specimen) Blood / Unknown 02/21/2019 9:31 AM EST 02/21/2019 9:37 AM EST Narrative [facility] - 02/21/2019 1:05 PM EST [facility], a member of [address] [place] [address] Microfilming Document Preparer - Birgit Snow MD PT ID [id number] ORD# [id number] Liz Pelayo LOADING MACHINE OPERATOR LAB - BLOOD DRAW Final Re sult [facility] [address] [place] [address], [place] [phone] * PAP SMEAR W/HPV, ABSTRACTED (04/25/2018 10:38 AM EST) PAP SMEAR INTERPRETATION NORMAL NORMAL [facility] HPV (HUMAN PAPILLOMA) NEGATIVE NEGATIVE [facility] HPV TYPE 16 NEGATIVE NEGATIVE [facility] HPV TYPE 18 NEGATIVE NEGATIVE [facility] Specimen from uterine cervix (specimen) 04/25/2018 10:38 AM EST Provider [facility] - PATHOLOGY AND CYTOLOGY AMB ULATORY Final Result Performing Organization Address [facility] Co de Phone Number [facility] [address] [place] [address], [place] [phone] from Last 3 Months or Most Recently Relevant to Health Maintenance Insurance [employer] Member Subscriber Plan / Payer (Ef fective 2017-Present) Name:Lidia Wells Relation to Subscriber:Self Name:Lidia Wells Payer ID:[id number] Type:Indemnity Address: [facility] [address] [place] [address] [place] MED[place] DENTAL
--- OUTSIDE RECORDS SUMMARY | 2024-11-25 13:56 | XMS_ITS | Encounter Summary ---
Author Organization [facility] Address [address] [place] [address] Care Team Providers Care Instrument Man Name Role Phone Liz Pelayo DIGITAL MEDIA STRATEGIST Primary Care Provider [phone] Encounter Details Date Type Department Care Team ([facility] Contact Info) Description 10/21/2021 Dental Interim Note [facility] [address] [place] [phone] Cheri Escoto Y [address] [place], [place] [phone] Social History Tobacco Use Types Packs/Day Years [...] Upcoming Encounters Date Type Department Care Team ([facility] st Contact Info) Description 12/02/2024 9:00 AM EDT Office Visit [facility] [address] [place] [address] Steffanie Buenrostro [address] [place] [address] documented as of this encounter Procedures Procedure [...] documented as of this encounter Care Teams Instrument Man Relationship Specialty Start Date End Date Liz Pelayo FNP [address] [place] [address] PCP - General Family Medicine, GARDEN MACHINERY MECHANIC 09/27/17 02/29/24 documented as of this encounter
[2024-12-03 14:57] VITALS: BMI 32.4
--- NOTE | 2024-12-04 11:51 | P.CONAN_ITS ---
Documented by User: Nidhi Mata NP 12/04/24 11:51 HPI - Anesthesia Eval Consult details Narrative: 49yo F for Colonoscopy PMFSH Active Problems Active Problems: All Active Problems Chronic idiopathic constipation (Acute) Chronic fatigue (Acute) Hypertriglyceridemia (Acute) Breast pain, left (Acute) Hives (Acute) Class 1 obesity with body mass index (BMI) of 33.0 to 33.9 in adult (Acute) Fatigue (Acute) Impaired glucose tolerance (Acute) Lumbar radiculopathy (Acute) Encounter for well woman exam with routine gynecological exam (Acute) Tongue abnormality (Acute) Right medial knee pain (Acute) Lumbar pain (Acute) Golfers elbow of right upper extremity (Acute) Right tennis elbow (Acute) Positive NALLELY (antinuclear antibody) (Acute) Right shoulder pain (Acute) Iron deficiency anemia due to chronic blood loss (Acute) Polyarthralgia (Acute) Right knee pain (Acute) Left knee pain (Acute) Pain of right humerus (Acute) Pain of left humerus (Acute) Pain in right forearm (Acute) Pain in left forearm (Acute) Pain in right femur (Acute) Pain of left femur (Acute) Left leg pain (Acute) Class 1 obesity with body mass index (BMI) of 31.0 to 31.9 in adult (Acute) Physical exam (Acute) Thoracic back pain (Acute) Encounter to discuss test results (Acute) Dysuria (Acute) Encounter for well woman exam (Acute) Abnormal ultrasound of breast (Acute) Lump of right breast (Acute) Neck pain (Acute) Blurry vision (Acute) Yeast infection of the vagina (Acute) Vaginal pruritus (Acute) Hypovitaminosis D (Acute) Mixed hyperlipidemia (Acute) Past Medical History Medical History Lumbar radiculopathy Hypovitaminosis D Cervical cancer screening Mixed hyperlipidemia Family History Family History Father Diabetes Mother Arthritis Maternal Grandmother Arthritis Family/Other Breast cancer Surgical History Surgical History Hx of section H/O tubal ligation History of tonsillectomy Social History Social History Housing: House Are you a primary career technical education instructor to a significant other at home: No Do you presently have visiting nurse or other home services: No Alcohol intake: never Patient Tobacco Use Status: Never used Tobacco e-Cigarette/Vaping Use: Never Used Second Hand Smoke Exposure: No Have you been hit, kicked, punched, or otherwise hurt by someone within the past year? 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 Current occupational exposures/hazards: No Gender identity: Female Cognitive needs: No Hearing needs: No Vision needs: No Meds Allergies Allergy/AdvReac Type Severity Reaction Status Date / Time simvastatin AdvReac Mild hives/ rash Verified 12/05/24 07:07 Exam Height,Weight and Vital Signs: Height 5 ft 5 in Weight 88.451 kg Assessment and Plan Assessment Anesthesia Assessment: Chart Reviewed Documented by User: Michelle Islas MD 12/05/24 08:06 [facility] Past Medical History Medical History Lumbar radiculopathy Hypovitaminosis D Cervical cancer screening Mixed hyperlipidemia Family History Family History Father Diabetes Mother Arthritis Maternal Grandmother Arthritis Family/Other Breast cancer Surgical History Surgical History Hx of section H/O tubal ligation History of tonsillectomy History of Problems with Anesthesia: No Social History Social History Housing: House Are you a primary career technical education instructor to a significant other at home: No Do you presently have visiting nurse or other home services: No Alcohol intake: never Patient Tobacco Use Status: Never used Tobacco e-Cigarette/Vaping Use: Never Used Second Hand Smoke Exposure: No Have you been hit, kicked, punched, or otherwise hurt by someone within the past year? 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 Current occupational exposures/hazards: No Gender identity: Female Cognitive needs: No Hearing needs: No Vision needs: No Meds Allergies Allergy/AdvReac Type Severity Reaction Status Date / Time simvastatin AdvReac Mild hives/ rash Verified 12/05/24 07:07 Exam Airway Mallampati Class: II TM Dist: >3cm Neck ROM: Full Loose/Missing/Broken Teeth: No Heart: RRR Lungs: CTA Assessment and Plan Assessment Anesthesia Assessment: Anesthesia Plan Discussed Final Anesthetic Review History of Problems with Anesthesia: No NPO: Yes ASA Class: II Final Preanesthetic Review: Meds/Allgs Chart Reviewed, Consent Obtained/Reviewed and Anes Risks/Benef Reviewed Patient Risk: Low Procedure Risk: Low Anesthetic Plan Anesthetic Plan: MAC: Disposition: Standard PACU
[2024-12-05 07:07] VITALS: BMI 34.3
[2024-12-05] MEDS: Lactated Ringers 1,000 ML 100 ML IVCONT (07:12)
[2024-12-05 07:21] VITALS: BP 139/79; PULSE 79; RESP 18; TEMP 36.6; O2SAT 98
--- NOTE | 2024-12-05 08:34 | MHC.SHP ---
Pre-Procedural Eval Section A - 24 Hr Update-Section A only Date of Service: 12/05/24 Section B - Complete if H&P > 30 days Chief Complaint: screening Relevant Family History (Specify if Yes): No Relevant Social History: None Present Medications: see Short Stay Collaborative assessment Medical History: Significant History (Lumbar radiculopathy Hypovitaminosis D Cervical cancer screening Mixed hyperlipidemia) History of Previous Operations: Relevant previous surgery/procedure and date(s) (Hx of section H/O tubal ligation History of tonsillectomy) Allergies: Allergies Allergy/AdvReac Type Severity Reaction Status Date / Time simvastatin AdvReac Mild hives/ rash Verified 12/05/24 07:07 Review of Systems Sugical H&P ROS: Negative: Constitution, Cardiovascular, Respiratory, Neurological, Psychiatric, Hem-Onc, Allergic/Immunologic, Gastrointestinal, Genitourinary, Musculoskeletal, Integumentary, Endocrine and Eyes/Ears/Nose/Throat Exam Surgical H&P Exam: Normal: HEENT, Normal: Heart, Normal: Lungs, Normal: Extremities, Normal: Abdomen, Normal: Skin and Normal: Neurological Plan Diagnosis/Plan: Unchanged I have reviewed the history and physical and performed a pertinent physical examination on my patient. No changes have occurred unless specified. Time Spent With Patient Time: Total time managing care of this patient today ____ minutes.
--- NOTE | 2024-12-05 09:04 | HO.OPN-COLON ---
Colonoscopy Operative Note Operative Note Date of Service: 12/05/24 Narrative: Operative Information Procedure Description: Colonoscopy Indication: screening Anesthesia: MAC COLONOSCOPY Instrument: Olympus variable stiffness pediatric scope 190L Colonoscopy Monitoring: Vital signs and clinical assessment, continuous EKG monitoring, Pulse oximetry, Carbon Dioxide monitoring and blood pressure monitoring were done throughout the procedure. Colon withdrawal time was 12 minutes. Procedure: The patient was placed in the left lateral decubitis position and pre-procedure medications were administered. After a digital rectal examination of the ano-rectum, the video colonoscope was inserted into the rectum and advanced through the colon to the cecum/TI. The colonoscope was slowly withdrawn in a retrograde panoramic fashion and the colon mucosa was carefully examined including a retroflexed view of the rectum. Findings and interventions are described below. Procedure Difficulty: moderate Findings: Terminal Ileum-normal diffuse melanosis coli with granular mucosa, random bx taken Cecum:normal Ascending Colon: normal Transverse Colon -normal Descending Colon:normal Sigmoid Colon: normal Rectum: Retroflexion with small internal hemorrhoids seen, grade I, x 2 sessile polyps 3-5 mm removed with cold forceps Anorectum - normal Intervention: cold forceps Colon preparation: Endeavor Bowel Preparation Scale Right colon; 2 Transverse colon: 2 Left colon; 2 (0 = Unprepared colon segment with mucosa not seen due to solid stool that cannot be cleared. 1 = Portion of mucosa of the colon segment seen, but other areas of the colon segment not well seen due to staining, residual stool and/or opaque liquid. 2 = Minor amount of residual staining, small fragments of stool and/or opaque liquid, but mucosa of colon segment seen well. 3 = Entire mucosa of colon segment seen well with no residual staining, small fragments of stool or opaque liquid) Impression and Post Procedure Diagnosis: melanosis coli colon polyps internal hemorrhoids Plan: High fiber diet leaflet Avoid straining at stool, epsom salts and sitz bath, anusol supps or cream Repeat Colonoscopy in 5 years if adenomatous polyps, 10 yrs if hyperplastic or earlier if clinically indicated Above findings were reviewed with the patient and relevant handouts were provided if indicated.
[2024-12-05 09:08] VITALS: BP 99/53; PULSE 73; RESP 18; TEMP 37.4; O2SAT 98
[2024-12-05 09:23] VITALS: BP 105/62; PULSE 65; RESP 18; TEMP 36.9; O2SAT 98
== END 2024-12-05 10:25 | disposition home or self-care (01) ==
PROVIDERS: PCP Internal Medicine; Visit Provider Internal Medicine Gastroenterology
PROC: 0DJD8ZZ Inspection of Lower Intestinal Tract, Via Natural or Artificial Opening Endoscopic (ICD-10-PCS; CPT 45378; principal; 2024-12-05 08:30)
DX: Z12.11 Encounter for screening for malignant neoplasm of colon (principal); K63.89 Other specified diseases of intestine; K62.1 Rectal polyp; K64.0 First degree hemorrhoids
CPT/HCPCS: 45380; 88305; J2704

== ENCOUNTER → 2024-12-05 06:41 | Outpatient (BNV) | payer OTHER, SELFPAY | PROVIDERS: PCP Internal Medicine; Visit Provider Internal Medicine Gastroenterology | DX: Z12.11 Encounter for screening for malignant neoplasm of colon (principal); K63.89 Other specified diseases of intestine; D12.8 Benign neoplasm of rectum; K64.0 First degree hemorrhoids | CPT/HCPCS: 45380 ==

== ENCOUNTER 2024-12-06 15:01 | Outpatient (AMB) | payer OTHER, SELFPAY ==
--- OUTSIDE RECORDS SUMMARY | 2024-12-06 15:04 | XMS_ITS | Data Portability ---
Author Organization [place] - [facility], Allergy Address [address] [place] [id number] Care Team Providers Care Joint Cutter Machine Name Role Phone MECHE MCCLELLAND Primary Care Provider [phone] MECHE MCCLELLAND Referring Provider Assessment Encounter Date [...] Organization Details Recorded Time Lesion of tongue [id number] Active 024 KODY YUEN MD [address] [address], [facility] [place], [address] , [place] [facility] 01/12/2024 15:33:47 Problem Notes None recorded. Medical Equipment None Reported. Allergies Allergen ID Allergen Name Allergen Category Reaction Reaction Severity Criticality Documentation Date Start Date Code Code System Note Provider Name and Address Organization Details Recorded Time 692802 simvastat in medicatio n Not available Not available Not available 01/12/2024 19126 RxNorm Meche peralta [place] - [facility] 15:13:16 Medications Name Sig Start Date Stop [...] Diagnosis SNOMED-CT Code Diagnosis ICD10 Code Diagnosis IMO Codes Diagnosis Note [id number] KODY YUEN MD [facility] [address] [place] [address] 01/12/2024 15:04:09 01/12/2024 15:47:02 Lesion of tongue 064020055 K14.9 Health Concerns Section Related Observation LastModified by Organization Detai ls LastModified Time None Recorded Concern Status LastModified by Organization Details LastModified Time None Recorded Advance Directives Directive None Recorded Payers Insurance Date Sequence Insurance Name Policy Number Policy Zavala Covered Member ID Zavala Member ID Guarantor Name 01/12/2024 1 [employer] (MEDICAID REPLACEMENT - HMO) ARICMemo Murillo Priscilla Valencia [id number] Lidia Valencia Notes Date Note Type Note Provider Name and Address Organization Details Recorded Time 01/12/2024 text/html ROS as noted in the HPI ipad -spanishtongue fissureswhite on surface of tongueonset 06/2023no use of any instruments on tongueuses listerine mouth washPCP offered numbing med that was not helpfultobacco - denies KODY YUEN MD [address] [place] [address], [phone] [place] [facility] 01/12/2024 15:35:05 OBGyn Episode No OBEpisode recorded.
--- OUTSIDE RECORDS SUMMARY | 2024-12-06 15:04 | XMS_ITS | Clinical Summary ---
Author Organization [facility] Address [address] [place] [address] Care Team Providers Care Wildlife Technician Name Role Phone Unavailable Primary Care Provider Unavailabl e Social History Tobacco Use Types Packs/Day Years Used Date Smoking Tobacco: Never Assessed Comments Unknown Sex and Gender Information Value Date Recorded Sex Assigned at Not on file Legal Sex Female 10:21 AM EST Gender Identity Not on file Sexual Orientation Not on file Plan of Treatment Health Maintenance Due Date Last Done Comments Colorectal Cancer Screening: Colonoscopy 1975 DTaP,Tdap,and Td Vaccines (1 - Tdap) 1995 Hepatitis B Vaccines (1 of 3 - 19+ 3-dose series) 1995 Cervical Cancer Screening: P ap Smear 1997 HIV Screening 02/01/2022 Hepatitis C Screening 02/01/2022 Social Influencers of Health Screening 02/01/2022 Breast Cancer Screening 08/07/2022 08/08/19, 03/19/2019, 12/27/2017 Depression Screening 03/06/2024 COVID-19 Vaccine ( - 2023-2 5 season) 2024 Influenza Vaccine (#1) 2024 RSV Immunization Adult Patients (1 - 1-dose 75+ series) 2051 HIB Vaccines Aged Out No longer eligi [...] Procedure Name Priority Date/Time Associated Diagnosis Comments [facility] SCREENING DIGITAL Routine 08/07/2020 2:21 PM EDT Encounter for screening mammogram for malignant neoplasm of breast from Last 3 Months or Most Recently Relevant to Health Maintenance Results * [facility] SCREENING DIGITAL (08/07/2020 2:21 PM EDT) Anatomical Region Laterality Modality Mammography 08/07/2020 1:13 PM EDT Narrative 08/07/2020 2:21 PM EDT [facility] Diagnostic Imaging Department [address] [place] [address] Patient: KANDICE VALENCIALIDIA /Age/Sex: 1975 - 45 - F Unit#: [id number] Location/Status: [facility] CLI [facility] Physician: ALEXA PELAYO NP Maryann Screening Digital - 08/07/20 - 1341 EXAM: [facility] Screening Digital EXAM DATE AND TIME: 08/07/2020 1:53 PM HISTORY: Annual screening mammography COMPARISON: 03/19/2019, 12/27/2017 TECHNIQUE: CC and MLO views of both breasts were obtained using full field digital mammography. Exaggerated lateral CC view of the left breast is performed. Bilateral digital breast tomosynthesis was performed in the MLO projection. Computer aided detection with the [employer] 7.2-H was employed. TISSUE DENSITY: d. The [...] Routine screening mammogram BILATERAL in 1 year. [address], 81390 3342F, 7025F Dictating Physician: JOCY KUNZ MD Electronically Signed by: JOCY KUNZ MD Dic Date/Time: 08/07/20 1418 Sign date/Time: 08/07/20 1421 Procedure Note Thea Kunz MD - 02/22/2022 [facility] Diagnostic Imaging Department [address] [place], [place] [id number] Patient: WOODSON LIDIA VALENCIA./Age/Sex: 1975 45 - F Unit#: [id number] Location/Status: [facility]/REG I Mnemonic/Ordering Site: [facility] Ordering Physician: ALEXA PELAYO NP [facility] Screening Digital - 08/07/20 - 1342 EXAM: [facility] Screening Digital EXAM DATE AND TIME: 08/07/2020 1:53 PM HISTORY: Annual screening mammography COMPARISON: 03/19/2019, 12/27/2017 TECHNIQUE: CC and MLO views of both breasts were obtained using fullfield digital mammography. Exaggerated lateral CC view of the left breast is performed. Bilateral digital breast tomosynthesis was performed in theMLO projection. Computer aided detection with the [employer] 7.2-H wasemployed. TISSUE DENSITY: d. The breasts [...] Routine screening mammogram BILATERAL in 1 year. 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
[2024-12-06 15:32] VITALS: BP 136/70; PULSE 85; O2SAT 98; BMI 33.8
--- NOTE | 2024-12-06 15:32 | MHC.PC.OV ---
Vital Signs 12/06/24 15:32 Height 5 ft 5 in Weight 203 lb BMI 33.8 BP 136/70 Blood Pressure Location Lt brachial Position Sitting Pulse 85 Pulse Source Pulse Oximeter Pulse Oximetry (%) 98 Oxygen Delivery Method Room Air Intake Visit Reasons: pain from RT side of neck down to her hand Science Specialist Required: Yes Science Specialist Language: German Allergies simvastatin Adverse Reaction (Mild, Verified 12/06/24 15:33) hives/ rash Medication List - Last Reconciled 12/06/24 by Ranjit Whitten MD cholecalciferol (vitamin D3) 50 mcg PO DAILY 90 days docusate calcium 240 mg PO BEDTIME PRN 90 days fenofibrate 54 mg PO DAILY 90 days Tobacco use date assessed: 07/09/24 Dental Screening Dental Screen Date: 07/09/24 HPI HPI Comments History of Present Illness Details The patient is a 49-year-old female presenting with shoulder pain and neck pain. The shoulder pain began a few months ago without any specific injury or trauma. The pain is described as severe and is located where the arm joins the shoulder, extending to the fingers. The patient reports that the pain is not electrical in nature but feels like it is in the bone. She also experiences neck pain that extends to the shoulder area. The patient has been taking Tylenol and ibuprofen, which provide some relief, but the pain persists. She has also used Voltaren cream, which was given by her mother, and it helps to some extent. [facility] Medical History Lumbar radiculopathy Hypovitaminosis D Cervical cancer screening Mixed hyperlipidemia Surgical History Hx of section H/O tubal ligation History of tonsillectomy Family History Father Diabetes Mother Arthritis Maternal Grandmother Arthritis Family/Other Breast cancer Social History Housing: House Are you a primary care taker to a significant other at home: No Do you presently have visiting nurse or other home services: No Alcohol intake: never Patient Tobacco Use Status: Never used Tobacco Tobacco use type: Cigarette e-Cigarette/Vaping Use: Never Used Second Hand Smoke Exposure: No service: No Current occupational status: employed 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 1. Little interest or pleasure in doing things: nearly every day 2. Feeling down, depressed, or hopeless: not at all 3. Trouble falling or staying asleep, or sleeping too much: not at all 4. Feeling tired or having little energy: not at all 5. Poor appetite or overeating: more than half the days 6. Feeling bad about yourself - or that you are a failure or have let yourself or your family down: not at all 7. Trouble concentrating on things, such as reading the newspaper or watching television: nearly every day 8. Moving or speaking so slowly that other people could have noticed. Or the opposite - being so fidgety or restless that you have been moving around a lot more than usual: not at all 9. Thoughts that you would be better off or of hurting yourself in some way: not at all Total score: 8 Source: Developed by Drs. Gray Willoughby, Pancho Lockett and colleagues, with an educational aniket from [employer]. Thrive Questionnaire Date Thrive assessed: 07/09/24 DAVID-7 AMB Questionnaire DAVID-7 Date DAVID - 7 assessed: 07/09/24 Source: Developed by Olimpia Barney Kurt Kroenke and colleagues, with an educational aniket from [employer]. Review of Systems Const Details: Positives besides what was mentioned in HPI are in BOLD Constitutional: No Weight Change, No Fever, No Chills, No Night Sweats, No Fatigue, No Malaise ENT/Mouth: No Hearing Changes, No Ear Pain, No Nasal Congestion, No Sinus Pain, No Hoarseness, No sore throat, No Rhinorrhea, No Swallowing Difficulty Eyes: No Eye Pain, No Swelling, No Redness, No Foreign Body, No Discharge, No Vision Changes Cardiovascular: No Chest Pain, No SOB, No PND, No Dyspnea on Exertion, No Orthopnea, No Claudication, No Edema, No Palpitations Respiratory: No Cough, No Sputum, No Wheezing, No Smoke Exposure, No Dyspnea Gastrointestinal: No Nausea, No Vomiting, No Diarrhea, No Constipation, No Pain, No Heartburn, No Anorexia, No Dysphagia, No Hematochezia, No Melena, No Flatulence, No Jaundice Genitourinary: No Dysmenorrhea, No DUB, No Dyspareunia, No Dysuria, No Urinary Frequency, No Hematuria, No Urinary Incontinence, No Urgency, No Flank Pain, No Urinary Flow Changes, No Hesitancy Musculoskeletal: No Arthralgias, No Myalgias, No Joint Swelling, No Joint Stiffness, No Back Pain, No Neck Pain, No Injury History Skin: No Skin Lesions, No Pruritis, No Hair Changes, No Breast/Skin Changes, No Nipple Discharge Neuro: No Weakness, No Numbness, No Paresthesias, No Loss of Consciousness, No Syncope, No Dizziness, No Headache, No Coordination Changes, No Recent Falls Psych: No Anxiety/Panic, No Depression, No Insomnia, No Personality Changes, No Delusions, No Rumination, No SI/HI/AH/VH, No Social Issues, No Memory Changes, No Violence/Abuse Hx., No Eating Concerns Heme/Lymph: No Bruising, No Bleeding, No Transfusions History, No Lymphadenopathy Endocrine: No Polyuria, No Polydipsia, No Temperature Intolerance Physical exam (Primary Care) Vital Signs: Last Vital Signs Pulse 85 12/06/24 15:32 BP 136/70 12/06/24 15:32 Pulse Ox 98 12/06/24 15:32 Oxygen Delivery Method Room Air 12/06/24 15:32 BMI result Body Mass Index 33.8 Tobacco/Smoking Status: Tobacco use Status Tobacco use date assessed 07/09/24 12/06/24 15:38 Patient Tobacco Use Status Never used Tobacco 12/06/24 15:38 Tobacco use type Cigarette 12/06/24 15:38 e-Cigarette/Vaping Use Never Used 12/06/24 15:38 PHQ-9: PHQ-9 Score PHQ-9: Total score 8 12/06/24 15:39 Thrive Assessment: Date of Thrive Assessment Date Thrive assessed 07/09/24 12/06/24 15:38 Const Other: Pertinent findings are in BOLD GENERAL APPEARANCE NAD, activity normal for age, well developed/ well nourished, no cyanosis, pallor, or diaphoresis. EYES lids/conjunctiva normal. EARS/NOSE/THROAT Mucous membranes moist, nares normal, lips/teeth normal uvula midline without oral pharyngeal erythema, exudate or swelling TMs normal bilaterally. No lymphangitis/lymphedema. HEAD/NECK normocephalic atraumatic, no facial trauma, neck is supple. RESPIRATORY respiratory effort normal, speaks in full sentences, no tripod position, no accessory muscle use. Lungs clear to auscultation without rhonchi, wheezes, rales CARDIAC Regular rate and rhythm, no edema. ABDOMINAL Soft, ND/NT. No evidence of fluid wave. No pulsatile masses on exam, rebound tenderness, Garcia sign or pain over Mcburney's point. MUSCLES/EXTREMITIES No abnormal range of motion, no swelling. ROM limited of the right shoulder due to pain. SKIN Warm, pink and dry. No rashes, dermatoses, petechiae or lesions. NEUROLOGICAL Speech is clear and appropriate. Normal level of consciousness. Gait and coordination are normal. 5/5 strength in all extremities. PSYCH Normal mood and affect. Judgement/competence is appropriate Coding Level of Care Code Est Pt Level 4 (97316) Diagnoses Neck pain M54.2 Shoulder pain M25.519 Time Spent (min) 30 Assessment & Plan Assessment & Plan (1) Neck pain: Code(s): M54.2 - Cervicalgia Category: Medical Plan: - Continue with Tylenol and ibuprofen for pain management, alternating every 8 hours. - Referral to physical therapy for further management. (2) Shoulder pain: Code(s): M25.519 - Pain in unspecified shoulder Category: Medical Plan: - Plan to obtain an MRI of the shoulder to assess for any tendon issues. - Continue with Tylenol and ibuprofen for pain management, alternating every 8 hours. - Prescribe Voltaren cream for topical pain relief. - Referral to physical therapy for further management. Plan I discussed with the patient the plan to obtain an MRI of the shoulder to evaluate for any tendon issues. We also talked about continuing with Tylenol and ibuprofen for pain management, and the use of Voltaren cream for additional relief. I explained the referral to physical therapy and its potential benefits, and informed her that if the MRI shows significant findings, a referral to orthopedic surgery might be necessary. Orders: Orders MR shoulder RT wo con Today M25.519 - Pain in unspecified shoulder PT Evaluation and Treatment Today M19.011 - Primary osteoarthritis, right shoulder Medications: New diclofenac sodium 1% (Voltaren Arthritis Pain) apply to single knee, ankle, foot; for foot includes sole/toes/top of foot 4 grams topical QID 100 grams 0RF ibuprofen 400 mg PO Q8H PRN 90 tabs 3RF pain acetaminophen ER (Tylenol Arthritis Pain) 650 mg PO Q8H PRN 90 tabs 3RF pain
== END 2024-12-06 16:09 | disposition home or self-care (01) ==
LOC: HO.HMCH 15:01
PROVIDERS: PCP Internal Medicine; Visit Provider Internal Medicine
DX: M54.2 Cervicalgia (principal); M25.519 Pain in unspecified shoulder

== ENCOUNTER → 2024-12-06 15:01 | Outpatient (BNVA) | payer OTHER, SELFPAY | PROVIDERS: PCP Internal Medicine; Visit Provider Internal Medicine | DX: M54.2 Cervicalgia (principal); M25.511 Pain in right shoulder | CPT/HCPCS: 99212 ==

== ENCOUNTER 2025-01-23 15:59 | Outpatient (AMB) | payer OTHER, SELFPAY ==
[2025-01-23 16:01] VITALS: BP 128/58; PULSE 97; RESP 22; TEMP 36.5; O2SAT 98; BMI 34.5
--- NOTE | 2025-01-23 16:01 | MHC.PC.OV ---
Vital Signs 01/23/25 16:01 Height 5 ft 5 in Weight 207 lb 6 oz BMI 34.5 BP 128/58 L Blood Pressure Location Lt brachial Position Sitting Respiration 22 H Pulse 97 Pulse Source Pulse Oximeter Temp 97.7 F Temp Source Temporal Artery Scan Pulse Oximetry (%) 98 Oxygen Delivery Method Room Air Intake Visit Reasons: annual exam Intake Note: annual exam Processing Assistant Required: Yes Processing Assistant Language: English Accompanied by: Self / Same As Patient Allergies simvastatin Adverse Reaction (Mild, Verified 01/23/25 16:22) hives/ rash Medication List - Last Reconciled 01/23/25 by Meche Avendaño MD acetaminophen ER (Tylenol Arthritis Pain) 650 mg PO Q8H PRN cholecalciferol (vitamin D3) 50 mcg PO DAILY 90 days diclofenac sodium 1% (Voltaren Arthritis Pain) 4 grams topical QID fenofibrate 54 mg PO DAILY 90 days ibuprofen 400 mg PO Q8H PRN Tobacco use date assessed: 01/23/25 Dental Screening Dental Screen Date: 01/23/25 Did you have a dental visit in the last 12 months?: Yes Did you have a dental problem in the last 6 months where you did not have access to dental care?: No Was dental information given to patient?: Patient has dentist HPI HPI Comments History of Present Illness Details The patient is a 49 year old individual presenting for her physical exam. Colonoscopy done last month showing melanosis coli and hyperplastic polyp. She had her mammogram this year. Flu vaccine administered today. Tetanus vaccine is due 2028. She is requesting something for constipation due to having less than 3 bowel movements per week. The patient reports an allergy to simvastatin. Current medications include Tylenol, vitamin D, and a diclofenac cream. Past surgical history includes a tonsillectomy, tubal ligation, and a section. The patient received a flu shot and a tetanus shot in 2019, with the next tetanus vaccination due in 2028. The patient denies any bleeding. [facility] Medical History Lumbar radiculopathy Hypovitaminosis D Cervical cancer screening Mixed hyperlipidemia Surgical History Hx of section H/O tubal ligation History of tonsillectomy Family History Father Diabetes Mother Arthritis Maternal Grandmother Arthritis Family/Other Breast cancer Social History Housing: House Are you a primary clinical manager home care to a significant other at home: No Do you presently have visiting nurse or other home services: No Alcohol intake: never Patient Tobacco Use Status: Never used Tobacco Tobacco use type: Cigarette e-Cigarette/Vaping Use: Never Used Second Hand Smoke Exposure: No service: No Current occupational status: employed 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 Gray Willoughby, Olimpia Jarrett, Pancho Matute and colleagues, with an educational aniket from [employer]. Review of Systems Const All systems reviewed & are unremarkable except as noted in HPI and below Card Denies chest pain at rest, Denies chest pain with activity, Denies edema, Denies irregular heart rhythm, Denies claudication, Denies dyspnea, Denies dyspnea on exertion, Denies orthopnea, Denies paroxysmal nocturnal dyspnea and Denies slow heart rate Resp Denies cough, Denies dyspnea and Denies dyspnea on exertion GI Denies abdominal pain, Denies change in bowel habits, Denies excessive flatus, Denies nausea and Denies vomiting Physical exam (Primary Care) Vital Signs: Last Vital Signs Temp 97.7 F 01/23/25 16:01 Pulse 97 01/23/25 16:01 Resp 22 H 01/23/25 16:01 BP 128/58 L 01/23/25 16:01 Pulse Ox 98 01/23/25 16:01 Oxygen Delivery Method Room Air 01/23/25 16:01 BMI result Body Mass Index 34.5 BMI Assessment/Plan discussion: High BMI High, discussed plan: lifestyle, weight reduction, dietary and physical activity Tobacco/Smoking Status: Tobacco use Status Tobacco use date assessed 01/23/25 01/23/25 16:09 Patient Tobacco Use Status Never used Tobacco 01/23/25 16:08 Tobacco use type Cigarette 01/23/25 16:08 e-Cigarette/Vaping Use Never Used 01/23/25 16:08 Thrive Assessment: Date of Thrive Assessment Date Thrive assessed 07/09/24 01/23/25 16:02 HENMT Head: Yes normal to inspection, Yes normocephalic and Yes atraumatic Ears: external ears normal Eyes General: appearance normal, both eyes and all related structures Eyelids: Yes eyelids normal Conjunctivae: conjunctivae normal Neck Neck: Yes normal visual inspection and Yes supple Resp Effort & Inspection: normal respiratory effort Auscultation: clear to auscultation bilaterally Cardio Jugular venous distension: no JVD Rate: regular rate Rhythm: regular rhythm Heart sounds: S1 normal heart sound present and S2 normal heart sound present GI Inspection: Yes normal to inspection Palpation (GI): Soft to palpation and nontender Auscultation: normal bowel sounds Skin General skin exam: no rashes or lesions noted Neuro General: no focal motor deficits Extrem General: Yes full ROM Psych Appearance: grossly normal Office Procedures Flu Questionnaire Does the patient have a severe egg allergy?: No Does the patient have severe life threatening allergies?: No Does the patient have a fever or illness today?: No Has the patient ever had Guillain-Arbela Syndrome?: No Has the patient ever had any past reaction to a flu shot?: No Immunizations Fluarix 0356-8304 (PF) 45 mcg (15 mcg x 3)/0.5 mL IM syringe Performing Provider: Meche Avendaño MD [facility] Administered by: Tagn Escoto CMA on 01/23/25 16:41 Dose Route Admin Location Dispensed Lot Number Expiration Date NDC Anatomic Pathology Assistant 0.5 mL IM Left Deltoid 0.5 mL [id number] 09/02/25 63036-549-11 Sticky VIS Given Date VIS Provided VIS Publication Date 01/23/25 Single Vaccine 24 Eligibility Eligibility Date Funding Source [facility] Eligible-Medicaid 01/23/25 Private Coding Level of Care Code Est Pt Level 3 (62911) Est Pt Prev Care 40-64y(60817) Diagnoses Physical exam Z00.00 Chronic idiopathic constipation K59.04 Time Spent (min) 32 Assessment & Plan Assessment & Plan (1) Physical exam: Code(s): Z00.00 - Encounter for general adult medical examination without abnormal findings Category: Medical (2) Chronic idiopathic constipation: Code(s): K59.04 - Chronic idiopathic constipation Category: Medical Plan Repeat physical exam and year. Start senna as needed for constipation. Was recommended to do a high-fiber diet. Continue yearly mammograms. Orders: Orders Complete Blood Count Auto Diff Today D64.9 - Anemia, unspecified IRON PROFILE Today D64.9 - Anemia, unspecified Lipid Panel Today E78.5 - Hyperlipidemia, unspecified Comprehensive [place]. Panel Fast Today R73.02 - Impaired glucose tolerance (oral) Influenza 8207-7634 Immunization Today Z23 - Encounter for immunization Vitamin D 25-OH Total Today E55.9 - Vitamin D deficiency, unspecified T Spot TB Today Z11.1 - Encounter for screening for respiratory tuberculosis Medications: New sennosides (senna) 8.6 mg PO BEDTIME PRN 90 caps 0RF constipation 90 days Discontinued fenofibrate Discontinued Reason: Patient Completed Course 54 mg PO DAILY 90 days 90 tabs 1RF
--- OUTSIDE RECORDS SUMMARY | 2025-01-23 20:51 | XMS_ITS | Clinical Summary ---
[facility] Organization [facility] Address [address] [place] [address] Care Team Providers Care Chair Installer Name Role Phone Unavailable Primary Care Provider [...] Cancer Screening 08/07/2022 08/08/19 21, 03/19/2019, 12/27/2017 Depression Screening 03/06/2024 COVID-19 Vaccine ( - 2024-2 6 season) 2024 Influenza Vaccine (#1) 2024 RSV [...] Procedure Name Priority Date/Time Associated Diagnosis Comments [facility] SCREENING DIGITAL Routine 08/07/2020 2:21 PM EDT Encounter for screening mammogram for malignant neoplasm of breast from Last 3 Months or Most Recently Relevant to Health Maintenance Results * [facility] SCREENING DIGITAL (08/07/2020 2:21 PM EDT) Anatomical Region Laterality Modality Mammography 08/07/2020 1:13 PM EDT Narrative 08/07/2020 2:21 PM EDT [facility] Diagnostic Imaging Department [address] [place] [address] Patient: KANDICE VALENCIALIDIA /Age/Sex: 1975 - 45 - F Unit#: [id number] Location/Status: [facility] CLI [facility]em[facility] Order[facility] Physician: ALEXA PELAYO NP [facility] Screening Digital - 08/07/20 - 1341 EXAM: [facility] Screening Digital EXAM DATE AND TIME: 08/07/2020 1:53 PM HISTORY: Annual screening mammography COMPARISON: 03/19/2019, 12/27/2017 TECHNIQUE: CC and MLO views of both breasts were obtained using full field digital mammography. Exaggerated lateral CC view of the left breast is performed. Bilateral digital breast tomosynthesis was performed in the MLO projection. Computer aided detection with the [employer] 7.2-H was employed. TISSUE DENSITY: d. The [...] Routine screening mammogram BILATERAL in 1 year. 24049, 73034 3342F, 7025F Dictating Physician: JOCY KUNZ MD Electronically Signed by: JOCY KUNZ MD Dic Date/Time: 08/07/20 1418 Sign date/Time: 08/07/20 1421 Procedure Note Thea Kunz MD - 02/22/2022 [facility] Diagnostic Imaging Department [address] [place], [place] [id number] Patient: WOODSON LIDIA VALENCIA./Age/Sex: 1975 45 - F Unit#: [id number] Location/Status: [facility]/REG I Mnemonic/Ordering Site: [facility] Ordering Physician: ALEXA PELAYO NP [facility] Screening Digital - 08/07/20 - 1342 EXAM: [facility] Screening Digital EXAM DATE AND TIME: 08/07/2020 1:53 PM HISTORY: Annual screening mammography COMPARISON: 03/19/2019, 12/27/2017 TECHNIQUE: CC and MLO views of both breasts were obtained using fullfield digital mammography. Exaggerated lateral CC view of the left breast is performed. Bilateral digital breast tomosynthesis was performed in theMLO projection. Computer aided detection with the [employer] 7.2-H wasemployed. TISSUE DENSITY: d. The breasts [...] Routine screening mammogram BILATERAL in 1 year. 66415, 08859 3342F, 7025F Dictating Physician: JOCY KUNZ MD Electronically Signed by: JOCY KUNZ MD Dic Date/Time: 08/07/20 1418 Sign date/Time: 08/07/20 142 [address] Pelayo BACK SHOE CUTTER IMG BI PROCEDURES Final Re sult from Last 3 Months or Most Recently Relevant to Health Maintenance
--- OUTSIDE RECORDS SUMMARY | 2025-01-23 20:51 | XMS_ITS | Data Portability ---
Author Organization [place] - [facility], Allergy Address [address] [place] [phone] Care Team Providers Care Digital Controls Technical Officer Name Role Phone MECHE MCCLELLAND Primary Care Provider [phone] MECHE MCCLELLAND Referring Provider [phone] Assessment Encounter Date Assessment Date Assessment LastModified [...] Organization Details Recorded Time Lesion of tongue 600628024 Active 024 KODY YUEN MD [address] [address], [facility] [place], [address] , [place] [facility] 01/12/2024 15:33:47 Problem Notes None recorded. Medical Equipment None Reported. Allergies Allergen ID Allergen Name Allergen Category Reaction Reaction Severity Criticality Documentation Date Start Date Code Code System Note Provider Name and Address Organization Details Recorded Time 122352 simvastat in medicatio n Not available Not available Not available 01/12/2024 45449 RxNorm Meche peralta [place] - [facility] 15:13:16 Medications Name Sig Start Date Stop [...] ICD10 Code Diagnosis IMO Codes Diagnosis Note [id number] KODY YUEN MD [facility] [address] [place] [address] 01/12/2024 15:04:09 01/12/2024 15:47:02 Lesion of tongue 486816303 K14.9 Health Concerns Section Related Observation LastModified [...] REPLACEMENT - HMO) ARIC[facility] Murillo Priscilla Valencia [id number] Lidia Valencia Notes Date Note Type Note Provider Name and Address Organization Details Recorded Time 01/12/2024 text/html ROS as noted in the HPI ipad -spanishtongue fissureswhite on surface of tongueonset 06/2023no use of any instruments on tongueuses listerine mouth washPCP offered numbing med that was not helpfultobacco - denies KODY YUEN MD [address] [place] [address], [id number] [place] - [facility] 01/12/2024 15:35:05 OBGyn Episode No OBEpisode recorded.
== END 2025-01-23 16:45 | disposition home or self-care (01) ==
LOC: HO.HMCH 16:00
PROVIDERS: PCP Internal Medicine; Visit Provider Internal Medicine
DX: Z00.00 Encounter for general adult medical examination without abnormal findings (principal); K59.04 Chronic idiopathic constipation; Z23 Encounter for immunization

== ENCOUNTER → 2025-01-23 15:59 | Outpatient (BNVA) | payer OTHER, SELFPAY | PROVIDERS: PCP Internal Medicine; Visit Provider Internal Medicine | DX: Z00.00 Encounter for general adult medical examination without abnormal findings (principal); Z23 Encounter for immunization; K59.04 Chronic idiopathic constipation | CPT/HCPCS: 90471; 90656; 99212; 99396 ==

== ENCOUNTER 2025-01-25 08:01 | Outpatient (REF) | payer OTHER, SELFPAY ==
--- OUTSIDE RECORDS SUMMARY | 2025-01-25 08:04 | XMS_ITS | Clinical Summary ---
Author Organization [facility] Address [address] [place] [address] Care Team Providers Care Account Support Manager Name Role Phone Unavailable Primary Care [...] Procedure Name Priority Date/Time Associated Diagnosis Comments [facility] SCREENING DIGITAL Routine 08/07/2020 2:21 PM EDT Encounter for screening mammogram for malignant neoplasm of breast from Last 3 Months or Most Recently Relevant to Health Maintenance Results * [facility] SCREENING DIGITAL (08/07/2020 2:21 PM EDT) Anatomical Region Laterality Modality Mammography 08/07/2020 1:13 PM EDT Narrative 08/07/2020 2:21 PM EDT [facility] Diagnostic Imaging Department [address] [place] [address] Patient: KANDICE VALENCIALIDIA /Age/Sex: 1975 - 45 - F Unit#: [id number] Location/Status: [facility] CLI Mnemonic[facility] Order[facility] Physician: ALEXA PELAYO NP [facility] Screening Digital - 08/07/20 - 1341 EXAM: [facility] Screening Digital EXAM DATE AND TIME: 08/07/2020 1:53 PM HISTORY: Annual screening mammography COMPARISON: 03/19/2019, 12/27/2017 TECHNIQUE: CC and MLO views of both breasts were obtained using full field digital mammography. Exaggerated lateral CC view of the left breast is performed. Bilateral digital breast tomosynthesis was performed in the MLO projection. Computer aided detection with the [employer] 7.2-H was employed. TISSUE DENSITY: d. The [...] Routine screening mammogram BILATERAL in 1 year. 41665, 46591 3342F, 7025F Dictating Physician: JOCY KUNZ MD Electronically Signed by: JOCY KUNZ MD Dic Date/Time: 08/07/20 1418 Sign date/Time: 08/07/20 1421 Procedure Note Thea Kunz MD - 02/22/2022 [facility] Diagnostic Imaging Department [address] [place], [place] [address] Patient: WOODSON LIDIA VALENCIA./Age/Sex: 1975 45 - F Unit#: [id number] Location/Status: [facility]/REG I Mnemonic/Ordering Site: [facility] Ordering Physician: ALEXA PELAYO NP [facility] Screening Digital - 08/07/20 - 1342 EXAM: [facility] Screening Digital EXAM DATE AND TIME: 08/07/2020 1:53 PM HISTORY: Annual screening mammography COMPARISON: 03/19/2019, 12/27/2017 TECHNIQUE: CC and MLO views of both breasts were obtained using fullfield digital mammography. Exaggerated lateral CC view of the left breast is performed. Bilateral digital breast tomosynthesis was performed in theMLO projection. Computer aided detection with the [employer] 7.2-H wasemployed. TISSUE DENSITY: d. The breasts [...] Routine screening mammogram BILATERAL in 1 year. [address]279, 62842 3342F, 7025F Dictating Physician: JOCY KUNZ MD Electronically Signed by: JOCY KUNZ MD Dic Date/Time: 08/07/20 1418 Sign date/Time: 08/07/20 142 Flor Pelayo FURNACE SETTER IMG BI PROCEDURES Final Re sult from Last 3 Months or Most Recently Relevant to Health Maintenance
[2025-01-25 08:33] LABS: MANUAL DIFF FLAG NO
[2025-01-25 09:12] LABS: Hematocrit 32.7 % (37.0-47.0); Hemoglobin 10.3 g/dl (12.0-16.0); Imm Gran Abs Auto 0.07 X10*3/uL (0.00-0.03); Imm Gran Pct Auto 1.0 % (0.0-0.4); Lymphocytes Absolute Auto 2.4 X10*3/uL (1.2-4.9); Mean Corpuscular HGB Conc 31.5 g/dl (31.0-35.0); Mean Corpuscular Hemoglobin 23.9 pg (27.0-33.0); Mean Corpuscular Volume 75.9 fL (80.0-98.0); NRBC Abs Auto 0.000 X10*3/uL (0.0-0.012); NRBC Pct Auto 0.0 /100WBC (0.0-0.2); Platelet Count 388 X10*3/uL (160-400); Red Blood Count 4.31 X10*6/uL (4.20-5.50); White Blood Count 7.4 X10*3/uL (4.8-10.8)
[2025-01-25 10:14] LABS: Alanine Aminotransferase 40 U/L (0-31); Albumin Level 4.5 g/dL (3.5-5.0); Alkaline Phosphatase 102 U/L (39-117); Anion Gap 10 (12-20); Aspartate Amino Transferase 45 U/L (5-31); Blood Urea Nitrogen 12 mg/dL (9-16); Calcium 9.4 mg/dL (8.4-10.2); Carbon Dioxide 26 mmol/L (22-29); Chloride 108 mmol/L (96-108); Cholesterol 173 mg/dL (<200); Estimated Glomerular Filt Rate > 60; HDL Cholesterol 42 mg/dL (>40); Iron 22 mcg/dL (30-160); Percent Iron Saturation 6 % (15-50); Potassium 4.1 mmol/L (3.3-5.1); Sodium 140 mmol/L (135-145); Total Iron Binding Capacity 360 mcg/dL (228-428); Total Protein 7.7 g/dL (6.5-8.0); Triglycerides 181 mg/dL (<150); Unsaturated Iron Binding 338 ug/dL
== END 2025-01-25 08:02 | disposition home or self-care (01) ==
LOC: HO.LAB 08:01
PROVIDERS: PCP Internal Medicine; Visit Provider Internal Medicine
DX: R73.02 Impaired glucose tolerance (oral) (principal); E55.9 Vitamin D deficiency, unspecified; E78.5 Hyperlipidemia, unspecified; D64.9 Anemia, unspecified
CPT/HCPCS: 36415; 80053; 80061; 82306; 83540; 85025

== ENCOUNTER 2025-01-31 10:50 | Outpatient (REF) | payer OTHER, SELFPAY ==
--- OUTSIDE RECORDS SUMMARY | 2025-01-31 10:53 | XMS_ITS | Clinical Summary ---
Author Organization [facility] ity Address [address] [place] [address] Care Team Providers Care Marine Engine Machinist Apprentice Name Role Phone Unavailable Primary Care Provider [...] Cervical Cancer Screening: P ap Smear 1997 Breast Cancer Screening 08/07/2022 08/08/19 21, 03/19/2019, 12/27/2017 Depression Screening 03/06/2024 COVID-19 Vaccine (1 - 2024-2 6 season) 2024 Influenza Vaccine [...] Procedure Name Priority Date/Time Associated Diagnosis Comments [facility] SCREENING DIGITAL Routine 08/07/2020 2:21 PM EDT Encounter for screening mammogram for malignant neoplasm of breast from Last 3 Months or Most Recently Relevant to Health Maintenance Results * [facility] SCREENING DIGITAL (08/07/2020 2:21 PM EDT) Anatomical Region Laterality Modality Mammography 08/07/2020 1:13 PM EDT Narrative 08/07/2020 2:21 PM EDT [facility] Diagnostic Imaging Department [address] [place] [address] Patient: WOODSONADA HUGOVALENCIALIDIA./Age/Sex: 1975 - 45 - F Unit#: [id number] Location/Status: [facility] CLI Mnemonic/Ordering Site: [facility] Ordering Physician: ALEXA PELAYO NP [facility] Screening Digital - 08/07/20 - 1341 EXAM: [facility] Screening Digital EXAM DATE AND TIME: 08/07/2020 1:53 PM HISTORY: Annual screening mammography COMPARISON: 03/19/2019, 12/27/2017 TECHNIQUE: CC and MLO views of both breasts were obtained using full field digital mammography. Exaggerated lateral CC view of the left breast is performed. Bilateral digital breast tomosynthesis was performed in the MLO projection. Computer aided detection with the [employer] was employed. TISSUE DENSITY: d. The breasts [...] Routine screening mammogram BILATERAL in 1 year. 23493, 51690 3342F, 7021F Dictating Physician: JOCY KUNZ MD Electronically Signed by: JOCY KUNZ MD Dic Date/Time: 08/07/20 1418 Sign date/Time: 08/07/20 1421 Procedure Note Thea Kunz MD - 02/22/2022 [facility] Diagnostic Imaging Department [address] [place] [id number] Patient: KANDICE HUGOENTESLIDIA /Age/Sex: 1975 - 45 - F Unit#: [id number] Location/Status: [facility] CLI Mnemonic/Ordering Site: [facility] Ordering Physician: ALEXA PELAYO NP [facility] Screening Digital - 08/07/20 - 1342 EXAM: [facility] Screening Digital EXAM DATE AND TIME: 08/07/2020 1:53 PM HISTORY: Annual screening mammography COMPARISON: 03/19/2019, 12/27/2017 TECHNIQUE: CC and MLO views of both breasts were obtained using fullfield digital mammography. Exaggerated lateral CC view of the left breast is performed. Bilateral digital breast tomosynthesis was performed in theMLO projection. Computer aided detection with the [employer] 7.2-H wasemployed. TISSUE DENSITY: d. The breasts [...] Routine screening mammogram BILATERAL in 1 year. 48689, 67630 3342F, 7025F Dictating Physician: JOCY KUNZ MD Electronically Signed by: JOCY KUNZ MD Dic Date/Time: 08/07/20 1418 Sign date/Time: 08/07/20 1421 Flor Pelayo SALESPERSON ART OBJECTS IMG BI PROCEDURES Final Re sult from Last 3 Months or Most Recently Relevant to Health Maintenance
--- OUTSIDE RECORDS SUMMARY | 2025-01-31 10:53 | XMS_ITS | Data Portability ---
Author Organization [place] - [facility], Allergy Address [address] [place] [address] Care Team Providers Care Automotive Fleet Supervisor Name Role Phone MECHE MCCLELLAND Primary Care Provider [phone] MECHE MCCLELLAND Referring Provider Assessment Encounter Date [...] Organization Details Recorded Time Lesion of tongue 047521023 Active 024 KODY YUEN MD [address] [address], [facility], [address] , [place] [facility] 01/12/2024 15:33:47 Problem Notes None recorded. Medical Equipment None Reported. Allergies Allergen ID Allergen Name Allergen Category Reaction Reaction Severity Criticality Documentation Date Start Date Code Code System Note Provider Name and Address Organization Details Recorded Time 309939 simvastat in medicatio n Not available Not available Not available 01/12/2024 90757 RxNorm Meche peralta [place] - [facility] 15:13:16 Medications Name Sig Start Date [...] ICD10 Code Diagnosis IMO Codes Diagnosis Note [id number] KODY YUEN MD [facility] [address] [place] [address] 01/12/2024 15:04:09 01/12/2024 15:47:02 Lesion of tongue 477901261 K14.9 Health Concerns Section Related Observation LastModified [...] REPLACEMENT - HMO) ARICMemo Murillo Priscilla Valencia [id number] Lidia Valencia Notes Date Note Type Note Provider Name and Address Organization Details Recorded Time 01/12/2024 text/html ROS as noted in the HPI ipad -spanishtongue fissureswhite on surface of tongueonset 06/2023no use of any instruments on tongueuses listerine mouth washPCP offered numbing med that was not helpfultobacco - denies KODY YUEN MD [address] [place] [address], [phone] [place] [facility] 01/12/2024 15:35:05 OBGyn Episode No OBEpisode recorded.
[2025-02-02 18:28] LABS: TS Negative Control Passed; TS Panel A 0; TS Panel B 5; TS Positive Control Passed; TSpotTB Borderline (Negative)
== END 2025-01-31 10:51 | disposition home or self-care (01) ==
LOC: HO.LAB 10:50
PROVIDERS: Visit Provider Internal Medicine
DX: Z11.1 Encounter for screening for respiratory tuberculosis (principal)
CPT/HCPCS: 36415; 86481